=== PATIENT | female | born 1960 | race Caucasian/White ===

== ENCOUNTER 2016-12-04 20:07 | Inpatient (IN) | payer OTHER ==
[~2016-12-04] VITALS: Ht 165.1 cm; Wt 112.5 kg
[~2016-12-04 20:07] MED LIST: ALBU1AER5 INH; ALPH300T PO; CINN500C PO; DIPH25CA PO; FURO1TAB60 PO; LACT10SO47 PO; METF500T PO; PROP20TA3 PO; SPIR100T PO; TRAM50TA; VENL25TA PO
[2016-12-04 20:42] VITALS: BP 126/72; PULSE 85; RESP 20; TEMP 97.1; O2SAT 100
[2016-12-04 21:10] VITALS: RESP 14; O2SAT 97
[2016-12-04] MEDS ORDERED: SODIUM CHLORIDE 0.9% FLUSH 5 ML FLUSH IVF PRN (21:15)
--- NOTE | 2016-12-04 21:16 | PD ---
HPI Chief Complaint: Altered Mental Status Time Seen by Provider: 20:56 Travel History International Travel<30 days: No Contact w/Intl Traveler<30days: No Traveled to known affect area: No History of Present Illness HPI 56yo F with PMH of cirrhosis, ?autoimmune hepatitis, NIDDM presents to the ED with c/o altered mental status today. As per sister who lives with her, she was very agitated and was cursing at home which is not like her. She has been getting paracentesis every week since August for her ascites and was last drained 4 days ago. Pt was nauseous as per sister but denies any fever, vomiting. Pt only states her name and states yes. VS are stable and pt is maintaining her airway. Sister denies any head trauma. PFSH Past Medical History Hx Anticoagulant Therapy: Yes Asthma: Yes Blood Disorders: No Bipolar Disorder: Yes Anxiety: Yes Depression: Yes Heart Rhythm Problems: No Cancer: No Cardiovascular Problems: No High Cholesterol: No Chemotherapy: No Chest Pain: No Congestive Heart Failure: No Cirrhosis: Yes COPD: No Diabetes: Yes Diminished Hearing: No Endocrine: Yes Gastrointestinal Disorders: Yes Genitourinary: No Hepatitis: No Hiatal Hernia: No Hypertension: Yes Immune Disorder: No Musculoskeletal: No Neurologic: No Psychiatric: Yes (BIPOLAR) Reproductive: No Respiratory: No Immunizations Current: Yes (FLU SHOT 09/2015 ) Radiation Therapy: No Sleep Apnea: No Thyroid Disease: No PNEUMOCCOCAL Vaccine (Year): 2009 ?: Not Menopausal: Yes Ovarian Cysts: Yes (DRAINED BILATERALLY) Past Surgical History Abdominal Surgery: Yes (GALL BLADDER 1979) AICD: No Cardiac Surgery: No Cholecystectomy: Yes Ear Surgery: No Endocrine Surgery: No Eye Surgery: No Gynecologic Surgery: Yes (HYSTERECTOMY 1996) Hysterectomy: Yes Joint Replacement: No Oral Surgery: Yes (REMOVAL OF TEETH) Pacemaker: No Thoracic Surgery: No Other Surgery: Yes (L KNEE SCRAPPED; GALLBLADDER REMOVED) Social History Alcohol Use: No Tobacco Use: Yes (3-4 cig daily) Substance Use: No Allergies-Medications (Allergen,Severity, Reaction): Coded Allergies: Augmentin (Verified Allergy, Severe, 11/21/16) Tylox (Verified Allergy, Severe, 11/21/16) Lisinopril (Verified Adverse Reaction, Severe, 11/21/16) ANGIOEDEMA Tylenol (Verified Adverse Reaction, Intermediate, CIRRHOSIS, 11/21/16) Advil (Verified Adverse Reaction, Mild, 11/21/16) Reported Meds & Prescriptions Reported Meds & Active Scripts Active Enulose Liq (Lactulose (Encephalopathy) Liq) 10 Gm/15 Ml Soln 30 Ml PO BID 30 Days Metformin (Metformin HCl) 500 Mg Tab 500 Mg PO BIDPC With meals Spironolactone 100 Mg Tab 100 Mg PO BIDPC Reported Flexeril (Cyclobenzaprine HCl) 5 Mg Tab Unknown Dose PO TID Tramadol (Tramadol HCl) 50 Mg Tab 50 Mg .ROUTE DAILY PRN Alpha Lipoic Acid 300 Mg Tab 300 Mg PO BID Propranolol (Propranolol HCl) 20 Mg Tab 20 Mg PO BID Lasix (Furosemide) 40 Mg Tab 40 Mg PO BID Cinnamon 500 Mg Cap 1,000 Mg PO BID Diphenhydramine (Diphenhydramine HCl) 25 Mg Cap 25 Mg PO TID PRN Effexor (Venlafaxine HCl) 25 Mg Tab 50 Mg PO DAILY Proair Respiclick Inh (Albuterol Sulfate) 90 Mcg/Act Aerp 2 Puff INH Q6H PRN Review of Systems ROS Limitations: Altered Mental Status Physical Exam Narrative GENERAL: 56yo F with altered mental status, not in acute distress. SKIN: Warm and dry. HEAD: Atraumatic. Normocephalic. EYES: Pupils equal and round. No scleral icterus. No injection or drainage. ENT: No nasal bleeding or discharge. Mucous membranes pink and moist. NECK: Trachea midline. No JVD. CARDIOVASCULAR: Regular rate and rhythm. No murmur appreciated. RESPIRATORY: No accessory muscle use. Clear to auscultation. Breath sounds equal bilaterally. GASTROINTESTINAL: Abdomen soft, Distended. +TTP epigastric region. MUSCULOSKELETAL: No obvious deformities. No clubbing. No cyanosis. No edema. NEUROLOGICAL: AAOx1. Only states her name and yes. Not following commands. Moving extremities but not on command. Unable to further assess due to pt's altered mental status. Data Data Last Documented VS Vital Signs Date Time Temp Pulse Resp B/P Pulse Ox O2 Delivery O2 Flow Rate FiO2 12/04/16 23:12 96.1 89 20 96/51 100 Room Air Orders Electrocardiogram (12/04/16 21:09) Alcohol (Ethanol) (12/04/16 21:09) Ammonia (12/04/16 21:09) Complete Blood Count With Diff (12/04/16 21:09) Comprehensive Metabolic Panel (12/04/16 21:09) Prothrombin Time / Inr (Pt) (12/04/16 21:09) Act Partial Throm Time (Ptt) (12/04/16 21:09) Salicylates (Aspirin) (12/04/16 21:09) Troponin I (12/04/16 21:09) Tylenol (Acetaminophen) (12/04/16 21:09) Thyroid Stimulating Hormone (12/04/16 21:09) Lactic Acid Sepsis Protocol (12/04/16 21:09) Urinalysis - C+S If Indicated (12/04/16 21:09) Blood Culture (12/04/16 21:09) Chest, Single Ap (12/04/16 21:09) Blood Glucose (12/04/16 21:09) Ecg Monitoring (12/04/16 21:09) Iv Access Insert/Monitor (12/04/16 21:09) Oximetry (12/04/16 21:09) Sodium Chloride 0.9% Flush (Ns Flush) (12/04/16 21:15) Lipase (12/04/16 21:10) Lactulose Liq (Lactulose Liq) (12/04/16 22:30) Sodium Chlor 0.9% 1000 Ml Inj (Ns 1000 M (12/04/16 22:30) Potassium, Serum (K) (12/05/16 01:27) Calcium Gluconate Inj (Calcium Gluconate (12/04/16 22:30) Insulin Human Regular Inj (Novolin R Inj (12/04/16 22:45) Dextrose 50% In Astrid (Vial) Inj (D50w (Vi (12/04/16 22:30) Albuterol Concentrated Neb (Albuterol Co (12/04/16 22:30) Sodium Polysty Sulfate Liq (Kayexalate L (12/04/16 22:30) Admit Order (Ed Use Only) (12/04/16 23:34) Ct Brain W/O Iv Contrast(Rout) (12/05/16 21:09) Ct Abd/Pel W Iv Contrast(Rout) (12/05/16 ) Labs Laboratory Tests Test 12/04/16 12/04/16 21:15 23:14 White Blood Count 8.6 TH/MM3 Red Blood Count 3.55 MIL/MM3 Hemoglobin 11.8 GM/DL Hematocrit 34.0 % Mean Corpuscular Volume 95.7 FL Mean Corpuscular Hemoglobin 33.2 PG Mean Corpuscular Hemoglobin 34.7 % Concent Red Cell Distribution Width 16.3 % Platelet Count 66 TH/MM3 Mean Platelet Volume 7.9 FL Neutrophils (%) (Auto) 86.3 % Lymphocytes (%) (Auto) 3.9 % Monocytes (%) (Auto) 9.4 % Eosinophils (%) (Auto) 0.2 % Basophils (%) (Auto) 0.2 % Neutrophils # (Auto) 7.4 TH/MM3 Lymphocytes # (Auto) 0.3 TH/MM3 Monocytes # (Auto) 0.8 TH/MM3 Eosinophils # (Auto) 0.0 TH/MM3 Basophils # (Auto) 0.0 TH/MM3 CBC Comment AUTO DIFF Differential Comment AUTO DIFF CONFIRMED Platelet Estimate LOW Platelet Morphology Comment NORMAL Red Cell Morphology Comment NORMAL Prothrombin Time 14.2 SEC Prothromb Time International 1.3 RATIO Ratio Activated Partial 33.2 SEC Thromboplast Time Sodium Level 123 MEQ/L Potassium Level 5.5 MEQ/L Chloride Level 95 MEQ/L Carbon Dioxide Level 17.7 MEQ/L Anion Gap 10 MEQ/L Blood Urea Nitrogen 30 MG/DL Creatinine 0.85 MG/DL Estimat Glomerular Filtration 70 ML/MIN Rate Random Glucose 153 MG/DL Lactic Acid Level 2.3 mmol/L Calcium Level 7.8 MG/DL Total Bilirubin 6.4 MG/DL Aspartate Amino Transf 102 U/L (AST/SGOT) Alanine Aminotransferase 73 U/L (ALT/SGPT) Alkaline Phosphatase 127 U/L Ammonia 72 MCMOL/L Troponin I 0.02 NG/ML Total Protein 6.1 GM/DL Albumin 2.9 GM/DL Lipase 1141 U/L Thyroid Stimulating Hormone 2.760 uIU/ML 3rd Gen Salicylates Level LESS THAN 1.7 MG/DL Acetaminophen Level LESS THAN 2.0 MCG/ML Ethyl Alcohol Level LESS THAN 3 MG/DL Urine Color YELLOW Urine Turbidity HAZY Urine pH 6.0 Urine Specific [place] 1.027 Urine Protein TRACE mg/dL Urine Glucose (UA) NEG mg/dL Urine Ketones NEG mg/dL Urine Occult Blood NEG Urine Nitrite POS Urine Bilirubin NEG Urine Urobilinogen 2.0 MG/DL Urine Leukocyte Esterase TRACE Urine RBC 2 /hpf Urine WBC 13 /hpf Urine Squamous Epithelial 1 /hpf Cells Urine Mucus FEW /lpf Microscopic Urinalysis Comment CATH-CULTURE IND MDM Medical Decision Making Medical Screen Exam Complete: Yes Emergency Medical Condition: Yes Interpretation(s) EKG: NSR 54bpm. LAD. No ST segment elevation or depression. No peaked T wave. Differential Diagnosis Hepatic encephalopathy vs. electrolyte abnormalities vs. ICH vs. infection vs. overdose Narrative Course 56yo F with cirrhosis here with altered mental status, impression is hepatic encephalopathy. Labs reviewed, no leukocytosis. Na is 123. It appears that sodium was 124 on 11/14/16. K: 5.5. Hyperkalemia treatment given. Glucose 153. Ammonia 72, lactulose ordered rectally. Lipase elevated at 1141. TSH normal. Lactic acid 2.3. No leukocytosis. Platelet low at 66,000, appears to be baseline. Increased LFT, slightly increased from baseline. BUN is elevated at 30, pt given NS IVF x3. UA showed positive nitrite. Ciprofloxacin IV given. Discussed with Dr. Perera and accepted to ICU. Pt reevaluated at bedside and mental status improved after lactulose, answering more questions. BP has always been stable with MAP >65. CT scans are still pending because pt is uncooperative but I did not want to give her any sedatives at this time due to her mental status. Patient awaiting bed to ICU. I discussed patient's care extensively with her sisters at bedside and answered all questions. Critical Care Narrative Aggregate critical care time was 50 minutes. Time to perform other separately billable procedures was not included in the critical care time. My time did not include minutes spent treating any other patients simultaneously or on activities that did not directly contribute to the patient's treatment. The services I provided to this patient were to treat and/or prevent clinically significant deterioration that could result in: cardiovascular collapse or . I provided critical care services requiring my management, as noted below: Chart data review, documentation time, medication orders and management, vital sign assessments/reviewing monitor data, ordering and reviewing lab tests, ordering and interpreting/reviewing x-rays and diagnostic studies, care of the patient and discussion of the patient with the admitting physicians. Diagnosis Primary Impression: Hepatic encephalopathy Additional Impression: Hyponatremia Admitting Information Admitting Physician Requests: Admit Vicky Gonzalez DO Dec 04, 2016 21:16
--- NOTE | 2016-12-04 21:34 | RADRPT ---
EXAM DATE/TIME: 12/04/2016 21:09 [facility] COMPARISON: CHEST SINGLE AP, August 23, 2016, 19:12. INDICATIONS : Altered mental status. MEDICAL HISTORY : None. Unobtainable SURGICAL HISTORY : None. Unobtainable ENCOUNTER: Initial ACUITY: 1 day PAIN SCORE: Non-responsive. LOCATION: Bilateral chest FINDINGS: The lungs are grossly clear. Cardiomediastinal evaluation is severely limited by projection. CONCLUSION: No definite infiltrate Toñito Fulton MD on December 04, 2016 at 21:32 Board Certified Radiologist. This report was verified electronically.
[2016-12-04] MEDS ORDERED: CYCL5TAB PO (21:37)
[2016-12-04 21:41] LABS: AUTOMATED NEUTROPHIL # 7.4 TH/MM3 (1.8-7.7); BASOPHIL % 0.2 % (0.0-2.0); EOSINOPHIL % 0.2 % (0.0-4.0); LYMPH % 3.9 % (9.0-44.0); LYMPHOCYTE # 0.3 TH/MM3 (1.0-4.8); MEAN CELL VOLUME 95.7 FL (80.0-100.0); MEAN CORPUSCULAR HEMOGLOBIN 33.2 PG (27.0-34.0); MEAN CORPUSCULAR HGB CONC 34.7 % (32.0-36.0); MONO % 9.4 % (0.0-8.0); NEUT % 86.3 % (16.0-70.0); PLATELET COUNT 66 TH/MM3 (150-450); RED BLOOD COUNT 3.55 MIL/MM3 (4.00-5.30); RED CELL DISTRIBUTION WIDTH 16.3 % (11.6-17.2); WHITE BLOOD COUNT 8.6 TH/MM3 (4.0-11.0)
[2016-12-04 21:54] LABS: APTT (PATIENT) 33.2 SEC (24.3-30.1); INTERNATIONAL NORMALIZED RATIO 1.3 RATIO; PROTHROMBIN TIME - PATIENT 14.2 SEC (9.8-11.6)
[2016-12-04 22:00] LABS: ANION GAP 10 MEQ/L (5-15)
[2016-12-04 22:10] LABS: HEMO FLAGS AUTO DIFF
[2016-12-04 22:11] LABS: ACETAMINOPHEN LESS THAN 2.0 MCG/ML (10.0-30.0); ALKALINE PHOSPHATASE 127 U/L (45-117); ALT (GPT) 73 U/L (10-53); AST (GOT) 102 U/L (15-37); BICARBONATE 17.7 MEQ/L (21.0-32.0); BLOOD UREA NITROGEN 30 MG/DL (7-18); CHLORIDE 95 MEQ/L (98-107); GLOMERULAR FILTRATION RATE 70 ML/MIN (>89); POTASSIUM 5.5 MEQ/L (3.5-5.1); TOTAL BILIRUBIN ADULT 6.4 MG/DL (0.2-1.0)
[2016-12-04 22:12] LABS: SODIUM (NA) 123 MEQ/L (136-145)
[2016-12-04 22:24] LABS: PLATELET ESTIMATE SMEAR LOW (NORMAL); PLATELET MORPHOLOGY NORMAL (NORMAL); SCAN/DIFF AUTO DIFF CONFIRMED
[2016-12-04] MEDS ORDERED: SODIUM CHLOR 0.9% 1000 ML INJ 1,000 ML IV ONE (22:30)
[2016-12-04] MEDS ORDERED: LACTULOSE SYRUP 20 GM/30 ML CUP RECTAL ONE (22:30)
[2016-12-04] MEDS ORDERED: DEXTROSE 50% IN WATER 50 ML VIAL(D50) IV PUSH ONE (22:30)
[2016-12-04] MEDS ORDERED: CALCIUM GLUCONATE 10% 1 GM/10 ML VIAL SLOW IVP ONE (22:30)
[2016-12-04] MEDS ORDERED: SODIUM POLYSTYRENE SULFONATE SUSP 15 GM/60 ML CUP PO ONE (22:30)
[2016-12-04] MEDS ORDERED: RESP: ALBUTEROL CONC 2.5 MG/0.5 ML NEB INH ONE (22:30)
[2016-12-04] MEDS ORDERED: INSULIN HUMAN REGULAR 1,000 UNITS/10 ML VIAL IV PUSH ONE (22:45)
[2016-12-04 23:12] VITALS: BP 96/51; PULSE 89; RESP 20; TEMP 96.1; O2SAT 100
[2016-12-04 23:33] LABS: LACTIC ACID GHOST NOT REPORTABLE
[2016-12-04 23:44] LABS: BLOOD, URINE NEG (NEG); GLUCOSE,URINE NEG (NEG); KETONE, URINE NEG (NEG); MUCUS URINE FEW /lpf (OCC); SQUAMOUS EPITHELIAL CELL URINE 1 /hpf (0-5); URINE COLOR YELLOW (YELLW/STRAW)
[2016-12-04 23:45] LABS: COMMENT (UR) CATH-CULTURE IND; CULTURE IF INDICATED CATH CULTURE IND; NITRITE,URINE POS (NEG)
[2016-12-05] VITALS (11 sets, daily range): BP systolic 103–120; BP diastolic 52–69; PULSE 80–86; RESP 14–21; TEMP 97.6–98.5; O2SAT 94–100
[2016-12-05] MEDS ORDERED: SODIUM CHLOR 0.9% 1000 ML INJ 1,000 ML IV ONE ×2 (01:15)
[2016-12-05] MEDS ORDERED: CIPROFLOXACIN 400 MG PREMIX 200 ML IV ONE (01:15)
--- NOTE | 2016-12-05 05:03 | HHI.HP ---
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 She has no h/o EtOH or IVDU. She has been followed by Dr. Gomez as outpatient and previously seen by Dr. Escalante. There has been discussion of referral to transplant center but patient has not always had good followup due to financial constraints. She has recently been approved for SSI. She presents to [facility] ED due to altered mental status. Her sisters are at bedside and state that since about august or september of 2016 that she sleeps 70-80% of the day. However, she is typically coherent when she is awake. She slept all day on 12/04/16 and around 4 pm she got up and was "off balance" and nearly fell in the shower. She was also disoriented and could state that she was [place] but could not answer any other questions. She was also agitated and cursing, which is not in her nature. She has no reported head trauma. She has been compliant with lactulose 30 bid. Ammonia level is 72. She has tense ascites and has been requiring paracentesis since september of 2015, now requiring weekly paracentesis for the last several months. Family states typically remove ~12 L. Last paracentesis was on 11/30 and 14 L were removed. She is on spironolactone 100 bid and lasix 40 bid. She reportedly has had no fever. She has had chills for "Several months". She reports no abdominal pain outside of the typical discomfort when she has ascites. She vomited on 11/25 and 11/26 NBNB. Sodium 122. potassium 5.5. She received 2 L NS bolus in the ED and treatment for hyperkalemia with kayexalate/calcium/dextrose/insulin. She received lactulose [address] brain and abdomen were ordered but she was uncooperative with the exam. Family at bedside say she is now much improved. She is now oriented x3 and conversant. Past Family Social History Allergies: Coded Allergies: Augmentin (Verified Allergy, Severe, 11/21/16) Tylox (Verified Allergy, Severe, 11/21/16) Lisinopril (Verified Adverse Reaction, Severe, 11/21/16) ANGIOEDEMA Tylenol (Verified Adverse Reaction, Intermediate, CIRRHOSIS, 11/21/16) Advil (Verified Adverse Reaction, Mild, 11/21/16) Past Medical History JOSH positive Autoimmune hepatopathy. Cirrhosis Portal hypertension Spinal megaly Diabetes mellitus Past Surgical History Cholecystectomy Hysterectomy Tonsillectomy Esophageal dilation Multiple paracenteses Reportedly she has never had a liver biopsy. Reported Medications Lactulose 30 mL by mouth twice a day Effexor 50 mils Albuterol 2 puffs inhaled every 6 hours Propranolol 20 mg by mouth twice a day Metformin 500 mg by mouth twice a day Flexeril 5 mill grams by mouth 3 times a day Benadryl 25 mill grams by mouth 3 times a day Lasix 40 mill grams by mouth twice a day Spironolactone a day Ultram 50 mg by mouth daily when necessary pain Alpha lipoic acid threaded milligrams by mouth twice a day Cinnamon 1000 g by mouth twice a day Family History No known family history liver disease Social History She met she smokes 1-2 cigarettes per day. She never drank alcohol. No illicit drug use. 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 She is not She has no children. Her sisters help care for her. She is on disability. Physical Exam Vital Signs Vital Signs Date Time Temp Pulse Resp B/P Pulse Ox O2 Delivery O2 Flow Rate FiO2 12/04/16 23:12 96.1 89 20 96/51 100 Room Air 12/04/16 21:10 14 97 Room Air 12/04/16 21:10 80 14 98 Room Air 12/04/16 20:42 97.1 85 20 126/72 100 Physical Exam Blood pressure 96.1 pulse 89 respiration 20 blood pressure 96/50 one 100% on room air GENERAL: Chronically ill-appearing jaundiced patient with ascites who appears uncomfortable in ED gurney, restless and moving to her side complaining of back pain. SKIN: Warm and dry. Multiple telangiectasia over chest. Multiple ecchymoses overlying bilateral upper extremities. No palmar erythema HEAD: Atraumatic. Normocephalic. EYES: Pupils equal and round. +icterus ENT: No nasal bleeding or discharge. Mucous membranes dry. . NECK: Trachea midline. CARDIOVASCULAR: Regular rate and rhythm. No murmurs rubs or gallops. RESPIRATORY: Mildly tachypneic with No accessory muscle use. Clear to auscultation. Breath sounds diminished bibasilar. On RA. GASTROINTESTINAL: Abdomen distended with tense ascites. No significant tenderness or rebound. +caput MUSCULOSKELETAL: Extremities without clubbing, cyanosis. 2+ pitting bipedal edema. NEUROLOGICAL: Awake, alert, restless. Repetitive questions. Oriented to self, hospital, year. Following commands. Moving all extremities without focal deficit Laboratory Laboratory Tests Test 12/04/16 12/04/16 12/05/16 21:15 23:14 00:00 White Blood Count 8.6 Red Blood Count 3.55 Hemoglobin 11.8 Hematocrit 34.0 Mean Corpuscular Volume 95.7 Mean Corpuscular Hemoglobin 33.2 Mean Corpuscular Hemoglobin 34.7 Concent Red Cell Distribution Width 16.3 Platelet Count 66 Mean Platelet Volume 7.9 Neutrophils (%) (Auto) 86.3 Lymphocytes (%) (Auto) 3.9 Monocytes (%) (Auto) 9.4 Eosinophils (%) (Auto) 0.2 Basophils (%) (Auto) 0.2 Neutrophils # (Auto) 7.4 Lymphocytes # (Auto) 0.3 Monocytes # (Auto) 0.8 Eosinophils # (Auto) 0.0 Basophils # (Auto) 0.0 CBC Comment AUTO DIFF Differential Comment AUTO DIFF CONFIRMED Platelet Estimate LOW Platelet Morphology Comment NORMAL Red Cell Morphology Comment NORMAL Prothrombin Time 14.2 Prothromb Time International 1.3 Ratio Activated Partial 33.2 Thromboplast Time Sodium Level 123 Potassium Level 5.5 Chloride Level 95 Carbon Dioxide Level 17.7 Anion Gap 10 Blood Urea Nitrogen 30 Creatinine 0.85 Estimat Glomerular Filtration 70 Rate Random Glucose 153 Lactic Acid Level 2.3 2.6 Calcium Level 7.8 Total Bilirubin 6.4 Aspartate Amino Transf 102 (AST/SGOT) Alanine Aminotransferase 73 (ALT/SGPT) Alkaline Phosphatase 127 Ammonia 72 Troponin I 0.02 Total Protein 6.1 Albumin 2.9 Lipase 1141 Thyroid Stimulating Hormone 2.760 3rd Gen Salicylates Level LESS THAN 1.7 Acetaminophen Level LESS THAN 2.0 Ethyl Alcohol Level LESS THAN 3 Urine Color YELLOW Urine Turbidity HAZY Urine pH 6.0 Urine Specific [place] 1.027 Urine Protein TRACE Urine Glucose (UA) NEG Urine Ketones NEG Urine Occult Blood NEG Urine Nitrite POS Urine Bilirubin NEG Urine Urobilinogen 2.0 Urine Leukocyte Esterase TRACE Urine RBC 2 Urine WBC 13 Urine Squamous Epithelial 1 Cells Urine Mucus FEW Microscopic Urinalysis Comment CATH-CULTURE IND Date/Time Procedure Status Source Growth 12/04/16 23:14 Urine Culture Received Urine Catheterized Urine Pending 12/04/16 21:15 Aerobic Blood Culture Received Blood Peripheral Pending 12/04/16 21:15 Anaerobic Blood Culture Received Blood Peripheral Pending Result Diagram: 12/04/16211412/04/162114 Assessment and Plan Assessment and Plan NEURO: Grade 3 hepatic encephalopathy Depression Diabetic Peripheral neuropathy Ammonia level 72 Start rifaximin 550 mg by mouth twice a day. Continue lactulose 30 g by mouth twice a day. Hold sedatives for now including Benadryl and Flexeril 5 mg by mouth [address] brain pending. RESP: On RA. CV: Lactic acidemia Monitor hemodynamics. Mild lactic acidemia with Poor lactate clearance due to cirrhosis. She is normotensive and appears perfused. GI: Autoimmune hepatopathy Cirrhosis Ambar Summers C, MELD 26 Splenomegaly Portal hypertension [place] to be autoimmune etiology. JOSH positive. ASMA negative. ceruloplasmin negative, ferritin low, [id number] nl. viral hepatitis panel neg 09/15. Consult gastroenterology Paracentesis today diagnostic/therapeutic with albumin infusion. Consider steroids/azathioprine if infection ruled out but defer to gastroenterology recs. Hold spironolactone due to hyperkalemia. Continue propranolol/lasix. Elevated lipase of unclear significance.CT abdomen and pelvis pending. NPO for now. FEN/RENAL: Hyponatremia Hyperkalemia Downs in place. Monitor intake and output. Monitor electrolytes. Hold spironolactone for now due to hyperkalemia Continue Lasix 40 mg by mouth twice a day. ID: UTI Received Cipro and emergency department. Will continue fluoroquinolone for SBP treatment and prophylaxis. Follow-up ascitic fluid cell counts Apply nystatin cream to the intertriginous regions in groin. HEME: Chronic thrombocytopenia secondary to cirrhosis Mild Coagulopathy secondary to cirrhosis Monitor CBC ENDO: Diabetes mellitus Hold metformin. Low-dose insulin sliding scale at bedside glucose every 6 hours PROPH: Hold pharmacologic DVT prophylaxis pending paracentesis. SCDs for DVT prophylaxis. Protonix 40 month grams IV daily for stress ulcer prophylaxis. ACCESS: Peripheral IV providing adequate access at this time. Family updated at bedside. Questions answered Full code Level III Ninoska Perera MD Dec 05, 2016 05:03
[2016-12-05] MEDS ORDERED: MISCELLANEOUS NURSING INFORMATION XX SCH (07:00)
[2016-12-05] MEDS ORDERED: SODIUM CHLORIDE 0.9% FLUSH 5 ML FLUSH IV FLUSH PRN (07:00)
[2016-12-05] MEDS ORDERED: RESP: ALBUTEROL 2.5 MG/3 ML NEB (PRN) INH (07:00)
[2016-12-05] MEDS ORDERED: CHLORHEXIDINE GLUCONATE 2 % 1 PACK (2 CLOTHS) TOP PRN (07:00)
[2016-12-05] MEDS ORDERED: DEXTROSE 50% IN WATER 50 ML VIAL(D50) IV PUSH PRN (07:15)
[2016-12-05] MEDS ORDERED: GLUCAGON 1 MG/ML VIAL OTHER PRN (07:15)
[2016-12-05] MEDS ORDERED: ALBUMIN HUMAN 25% 25 GM/100 ML BAGP IV ONE (07:30)
--- NOTE | 2016-12-05 07:56 | PD.CONS ---
HPI History of Present Illness This is a 56 year old female patient with liver cirrhosis who was brought to the ER for altered mental status. She was admitted for altered mental status, hepatic encephalopathy, lactic acidemia, portal hypertension, coagulopathy, thrombocytopenia, UTI, electrolyte abnormalities, and management of her chronic medical problems. The patient is very lethargic and a poor historian and therefore much of the history has been obtained from her sister. She reports that she has been more agitated than usual for a few weeks and suddenly became more confused yesterday afternoon with frequent stumbling and agitated behavior. She has also been having abdominal swelling since August and is now requiring weekly paracentesis. She was diagnosed with liver cirrhosis back in 2013. This was attributed to fatty liver disease. She has never actually had a liver biopsy. She has never been an alcohol drinker. The sister reports that she was recently told by a nurse practitioner that she may have autoimmune hepatitis based on a positive JOSH as outpatient. She was seen by Dr. Escalante in 2014 and underwent liver workup at that time and this revealed JOSH positive, AMA < 20.0, ASMA negative, Celiac panel negative, Iron saturation 26.1%, AFP 5.4 , Hepatitis panel negative. EGD (09/21/15)----> duodenitis, hiatal hernia, gastritis in the antrum, esophageal varices- s/p banding x 2, portal gastropathy. Antral mucosa with focal mild chronic inflammation of the lamina propria. Acute inflammation is not identified. A bharathi stain is negative for helicobacter, duodenal mucosa with features suggestive of peptic duodenitis. Repeat was recommended for 3 months. She takes lactulose 30mL po BID, spironolactone 100mg po BID, lasix 40mg po bid, and propranolol 20mg po bid. Her sister reports that she is usually very compliant and follows her diet and takes medications as prescribed. Her sister reports that she does have chills, but has not had any fevers. She has had intermittent nausea and vomiting since . She has not had any sick contacts. She also has frequent acid reflux. She has been using emetrol at home and this has helped some. She has not had any significant abdominal pain. She does have some discomfort from the abdominal swelling, but no actual pain. She recently started having diarrhea a few days ago and is having intermittent episodes of incontinence. (Merary Hernandez) PFSH Past Medical History Ascites Liver cirrhosis Asthma Bipolar disorder Hiatal hernia Type II DM Gastropathy Steatohepatitis Esophageal varices Positive JOSH Past Surgical History Abdominal paracentesis Cholecystectomy EGD Colonoscopy Hysterectomy Ovarian cystectomy (Merary Hernandez) Coded Allergies: Augmentin (Verified Allergy, Severe, 11/21/16) Tylox (Verified Allergy, Severe, 11/21/16) Lisinopril (Verified Adverse Reaction, Severe, 11/21/16) ANGIOEDEMA Tylenol (Verified Adverse Reaction, Intermediate, CIRRHOSIS, 11/21/16) Advil (Verified Adverse Reaction, Mild, 11/21/16) Medications Allergies Coded Allergies Type Severity Reaction Last Updated Verified Augmentin Allergy Severe 11/21/16 Yes Tylox Allergy Severe 11/21/16 Yes Lisinopril Adverse Reaction Severe 11/21/16 Yes Tylenol Adverse Reaction Intermediate CIRRHOSIS 11/21/16 Yes Advil Adverse Reaction Mild 11/21/16 Yes Active Scripts Medications Dose Route/Sig Days Date Category Dose Instructions Flexeril (Cyclobenzaprine HCl) 5 Mg Tab Unknown Dose PO TID 12/04/16 Reported Enulose Liq (Lactulose (Encephalopathy) Liq) 10 Gm/15 Ml Soln 30 Ml PO BID 30 11/02/16 Rx Metformin (Metformin HCl) 500 Mg Tab 500 Mg PO BIDPC 10/16/16 Rx With meals Spironolactone 100 Mg Tab 100 Mg PO BIDPC 10/08/16 Rx Tramadol (Tramadol HCl) 50 Mg Tab 50 Mg .ROUTE DAILY PRN 10/08/16 Reported Alpha Lipoic Acid 300 Mg Tab 300 Mg PO BID 10/08/16 Reported Propranolol (Propranolol HCl) 20 Mg Tab 20 Mg PO BID 10/08/16 Reported Lasix (Furosemide) 40 Mg Tab 40 Mg PO BID 10/08/16 Reported Cinnamon 500 Mg Cap 1,000 Mg PO BID 10/08/16 Reported Diphenhydramine (Diphenhydramine HCl) 25 Mg Cap 25 Mg PO TID PRN 10/08/16 Reported Effexor (Venlafaxine HCl) 25 Mg Tab 50 Mg PO DAILY 10/08/16 Reported Proair Respiclick Inh (Albuterol Sulfate) 90 Mcg/Act Aerp 2 Puff INH Q6H PRN 10/08/16 Reported Family History Family hx of liver cirrhosis Social History Tobacco No ETOH use. (Merary Hernandez Farideh LUDWIG) Review of Systems Constitutional: COMPLAINS OF: Fatigue, Chills, DENIES: Fever Respiratory: DENIES: Cough, Shortness of breath Gastrointestinal: COMPLAINS OF: Diarrhea, Nausea, Vomiting, Swelling of Abdomen , Heartburn, DENIES: Abdominal pain, Black stools, Bloody stools, Constipation , Hematemesis Musculoskeletal: COMPLAINS OF: Joint pain, Back pain Integumentary: COMPLAINS OF: Jaundice, DENIES: Rash Hematologic/lymphatic: COMPLAINS OF: Bruising Neurologic: DENIES: Headache Psychiatric: COMPLAINS OF: Confusion, Agitation (HernandezMerary) GI Exam Vitals I&O Vital Signs Date Time Temp Pulse Resp B/P Pulse Ox O2 Delivery O2 Flow Rate FiO2 12/04/16 23:12 96.1 89 20 96/51 100 Room Air 12/04/16 21:10 14 97 Room Air 12/04/16 21:10 80 14 98 Room Air 12/04/16 20:42 97.1 85 20 126/72 100 Imaging Last Impressions Chest X-Ray 12/04/162108 Signed Impressions: Service Date/Time: Sunday, December 04, 2016 21:09 - CONCLUSION: No definite infiltrate Toñito Fulton MD Laboratory Test 12/04/16 12/04/16 12/05/16 12/05/16 21:15 23:14 00:00 04:30 White Blood Count 8.6 TH/MM3 Red Blood Count 3.55 MIL/MM3 Hemoglobin 11.8 GM/DL Hematocrit 34.0 % Mean Corpuscular Volume 95.7 FL Mean Corpuscular Hemoglobin 33.2 PG Mean Corpuscular Hemoglobin 34.7 % Concent Red Cell Distribution Width 16.3 % Platelet Count 66 TH/MM3 Mean Platelet Volume 7.9 FL Neutrophils (%) (Auto) 86.3 % Lymphocytes (%) (Auto) 3.9 % Monocytes (%) (Auto) 9.4 % Eosinophils (%) (Auto) 0.2 % Basophils (%) (Auto) 0.2 % Neutrophils # (Auto) 7.4 TH/MM3 Lymphocytes # (Auto) 0.3 TH/MM3 Monocytes # (Auto) 0.8 TH/MM3 Eosinophils # (Auto) 0.0 TH/MM3 Basophils # (Auto) 0.0 TH/MM3 CBC Comment AUTO DIFF Differential Comment AUTO DIFF CONFIRMED Platelet Estimate LOW Platelet Morphology Comment NORMAL Red Cell Morphology Comment NORMAL Prothrombin Time 14.2 SEC Prothromb Time International 1.3 RATIO Ratio Activated Partial 33.2 SEC Thromboplast Time Sodium Level 123 MEQ/L Potassium Level 5.5 MEQ/L 5.2 MEQ/L Chloride Level 95 MEQ/L Carbon Dioxide Level 17.7 MEQ/L Anion Gap 10 MEQ/L Blood Urea Nitrogen 30 MG/DL Creatinine 0.85 MG/DL Estimat Glomerular Filtration 70 ML/MIN Rate Random Glucose 153 MG/DL Lactic Acid Level 2.3 mmol/L 2.6 mmol/L Calcium Level 7.8 MG/DL Total Bilirubin 6.4 MG/DL Aspartate Amino Transf 102 U/L (AST/SGOT) Alanine Aminotransferase 73 U/L (ALT/SGPT) Alkaline Phosphatase 127 U/L Ammonia 72 MCMOL/L Troponin I 0.02 NG/ML Total Protein 6.1 GM/DL Albumin 2.9 GM/DL Lipase 1141 U/L Thyroid Stimulating Hormone 2.760 uIU/ML 3rd Gen Salicylates Level LESS THAN 1.7 MG/DL Acetaminophen Level LESS THAN 2.0 MCG/ML Ethyl Alcohol Level LESS THAN 3 MG/DL Urine Color YELLOW Urine Turbidity HAZY Urine pH 6.0 Urine Specific [place] 1.027 Urine Protein TRACE mg/dL Urine Glucose (UA) NEG mg/dL Urine Ketones NEG mg/dL Urine Occult Blood NEG Urine Nitrite POS Urine Bilirubin NEG Urine Urobilinogen 2.0 MG/DL Urine Leukocyte Esterase TRACE Urine RBC 2 /hpf Urine WBC 13 /hpf Urine Squamous Epithelial 1 /hpf Cells Urine Mucus FEW /lpf Microscopic Urinalysis Comment CATH-CULTURE IND Date/Time Procedure Status Source Growth 12/04/16 23:14 Urine Culture Received Urine Catheterized Urine Pending 12/04/16 21:15 Aerobic Blood Culture Received Blood Peripheral Pending 12/04/16 21:15 Anaerobic Blood Culture Received Blood Peripheral Pending Physical Examination HEENT: Normocephalic; atraumatic; no jaundice. CHEST: CTA, diminished CARDIAC: RRR ABDOMEN: Soft, moderate to severe distention with ascites. mild diffuse tenderness; hepatosplenomegaly; bowel sounds are present in all four quadrants. EXTREMITIES: BLE edema more so in LLE. SKIN: Multiple ecchymotic area [employer]: Lethargic, oriented to self and place (Merary Hernandez [employer] WORKER) Assessment and Plan Plan ASSESSMENT: - Elevated LFTs with liver cirrhosis. MELD 16. Unclear etiology for liver cirrhosis. Dx in 2013 and was told at this time this was related to fatty liver disease. She was recently told by her PCP/[employer] that she may have autoimmune hepatitis based on a positive JOSH. She was seen by Dr. Escalante in 2014 and underwent liver workup at that time and this revealed JOSH positive, AMA < 20.0, ASMA negative, Celiac panel negative, Iron saturation 26.1%, AFP 5.4, Hepatitis panel negative. She continues to have JOSH positive with titer 1:160. She seems to have decompensation with recurrent ascites and worsening hepatic encephalopathy since August of this year. This could be autoimmune hepatitis, although her was ASMA negative. Will check ALKM-1, ALC-1, IgG to exclude type II. This could also be decompensation from her known liver disease- possibly related to fatty liver dz and/or medication induced. Spoke to Dr. Alonso Cook re: possible liver disease and he does not feel that he can safely obtain biopsy with her large volume ascites and recommends considering this once her ascites is better controlled. - Recurrent ascites. US guided paracentesis with fluid to be sent for analysis ordered. Cipro for UTI. - AMS, Hepatic encephalopathy. Xifaxan, Lactulose. Improved. Lethargic, but oriented. - GERD. PPI. EGD during this hospitalization. - N/V since [place]. PPI. Consider EGD during this hospitalization. - Coagulopathy, Thrombocytopenia. PT 14.2, INR 1.3. Plt 66 - UTI, Cipro. - Hyponatremia, Hyperkalemia. per [facility] - Portal hypertension, hx esophageal varices. EGD (09/21/15)----> duodenitis, hiatal hernia, gastritis in the antrum, esophageal varices - s/p banding x 2, portal gastropathy. Antral mucosa with focal mild chronic inflammation of the lamina propria. Acute inflammation is not identified. A bharathi stain is negative for helicobacter, duodenal mucosa with features suggestive of peptic duodenitis. Repeat was recommended for 3 months. Propranolol. EGD during this hospitalization. PLAN: - 2 gram sodium diet - US guided paracentesis with fluid sent for analysis - Defer diuretics to [facility] given electrolyte abnormalities - Consider albumin - Cont. PPI - Cont. Propranolol - Cont. Lactulose - Cont. Xifaxan - ALKM-1 - ALC-1 - IgG to exclude type II. - Spoke to Dr. Alonso Cook re: possible liver disease and he does not feel that he can safely obtain biopsy with her large volume ascites and recommends considering this once her ascites is better controlled. - EGD during this hospitalization - Supportive care - Further recommendations to follow based on results of above - Pt seen and examined by Dr. Newell and myself and this note is written on his behalf (Merary Hernandez) Physician Comments Patient was seen and examined, agree with above note and plan, labs for AM, consider trand juggler liver bx if ascites is not better soon, also consider evaluation at liver txp center. (Alannah Newell MD) Merary Hernandez Dec 05, 2016 07:56 Alannah Newell MD Dec 05, 2016 20:21
[2016-12-05] MEDS: FUROSEMIDE 40 MG TAB PO SCH ×2 (09:00→20:24)
[2016-12-05] MEDS: LACTULOSE SYRUP 20 GM/30 ML CUP PO SCH ×2 (09:00→20:24)
[2016-12-05] MEDS: PROPRANOLOL HCL 20 MG TAB PO SCH ×2 (09:00→20:12)
[2016-12-05] MEDS ORDERED: IOHEXOL 350 MG/ML 10 ML VIAL (for RAD DIAG) IV ONE (09:09)
--- NOTE | 2016-12-05 09:10 | RADRPT ---
EXAM DATE/TIME: 12/05/2016 08:59 [facility] COMPARISON: CT BRAIN W/O CONTRAST, July 25, 2014, 23:08. INDICATIONS : Altered mental status RADIATION DOSE: 56.35 CTDIvol (mGy) MEDICAL HISTORY : Diabetes mellitus type 2. Asthma SURGICAL HISTORY : Cholecystectomy. Hysterectomy. ENCOUNTER: Initial ACUITY: 1 day PAIN SCALE: 0/10 LOCATION: cranial TECHNIQUE: Multiple contiguous axial images were obtained of the head. Using automated exposure control and adj ustment of the mA and/or kV according to patient size, radiation dose was kept as low as reasonably a chievable to obtain optimal diagnostic quality images. FINDINGS: CEREBRUM: The ventricles are normal for age. No evidence of midline shift, mass lesion, hemorrhage or acute in farction. No extra-axial fluid collections are seen. POSTERIOR FOSSA: The cerebellum and brainstem are intact. The 4th ventricle is midline. The cerebellopontine angle i s unremarkable. EXTRACRANIAL: The visualized portion of the orbits is intact. SKULL: The calvaria is intact. No evidence of skull fracture. CONCLUSION: Normal examination for a patient of this age. No significant change has occurred. Bryan Mahmood MD on December 05, 2016 at 9:06 Board Certified Radiologist. This report was verified electronically.
--- NOTE | 2016-12-05 09:26 | RADRPT ---
EXAM DATE/TIME: 12/05/2016 09:03 [facility] COMPARISON: No previous studies available for comparison. INDICATIONS : Altered mental status, history of vomiting several days ago IV CONTRAST: 97 cc Omnipaque 350 (iohexol) IV ORAL CONTRAST: No oral contrast ingested. RADIATION DOSE: 28.09 CTDIvol (mGy) MEDICAL HISTORY : Diabetes mellitus type 2. Asthma SURGICAL HISTORY : Hysterectomy. Cholecystectomy. ENCOUNTER: Initial ACUITY: 2 days PAIN SCALE: 0/10 LOCATION: abdomen TECHNIQUE: Volumetric scanning of the abdomen and pelvis was performed. Using automated exposure control and ad justment of the mA and/or kV according to patient size, radiation dose was kept as low as reasonably achievable to obtain optimal diagnostic quality images. FINDINGS: Minimal basilar lung scarring. There is liver cirrhosis, splenomegaly and moderate ascites, similar t o September 2015 and August 2016. Numerous varices present in the upper abdomen. Previous hysterecto my and cholecystectomy. There is a 7.7 cm right adnexal mass which is stable in appearance over this last year. Downs cathete r present in bladder. No bowel obstruction. No free air. No acute bony abnormalities. Stomach is not distended. CONCLUSION: 1. Liver cirrhosis with moderate ascites, splenomegaly and varices similar in appearance to prior CT examinations. 2. Stable right adnexal mass measuring about 7.7 cm compared with September 2015. 3. Downs catheter in bladder. No bowel obstruction. No gastric distention. Bryan Mahmood MD on December 05, 2016 at 9:15 Board Certified Radiologist. This report was verified electronically.
[2016-12-05] MEDS: traMADol HCL 50 MG TAB PO PRN ×2 (09:52→22:00)
[2016-12-05] MEDS: RIFAXIMIN 550 MG TAB PO SCH ×2 (10:46→20:24)
[2016-12-05] MEDS: NYSTATIN 100,000 UNIT/GM CREAM 15 GM TOPICAL SCH ×2 (10:46→20:24)
[2016-12-05] MEDS: PANTOPRAZOLE SODIUM 40 MG VIAL IV SCH (10:46)
[2016-12-05] MEDS: SODIUM CHLORIDE 0.9% FLUSH 5 ML FLUSH IV FLUSH SCH ×2 (10:47→21:00)
--- NOTE | 2016-12-05 11:31 | EKG ---
Date Performed: 12/04/2016 Time Performed: 21:26:32 PTAGE: 56 years EKG: Sinus rhythm POSSIBLE ANTEROLATERAL MYOCARDIAL INFARCTION ABNORMAL ECG PREVIOUS TRACING : 08/09/2016 23.56 DOCTOR: Philip Lay Interpretating Date/Time 12/05/2016 11:30:21
[2016-12-05 13:18] LABS: PERITONEAL POLYS(SEGS) 67 %; PERITONEAL WBC 220 /MM3 (0-10)
[2016-12-05 13:19] LABS: PERITONEAL HISTIOCYTES 6 %; PERITONEAL LYMPHS 24 %; PERITONEAL MESOTHELIAL 1 %; PERITONEAL MONOS 2 %
[2016-12-05] MEDS ORDERED: LIDOCAINE HCL 1% 30 ML VIAL ONE (13:52)
--- NOTE | 2016-12-05 15:10 | RADRPT ---
EXAM DATE/TIME: 12/05/2016 11:26 [facility] COMPARISON: US GUIDED ABD PARACENTESIS, November 30, 2016, 8:35. INDICATIONS : Ascites. MEDICAL HISTORY : Hypertension. Cirrhosis. Jaundice. Neuropathy. Dyspnea. Gallbladder disease. Diabetes. Asthma. Anti coagulant therapy. Bipolar diosrder. Depression. Anxiety. SURGICAL HISTORY : Hysterectomy. Hemorrhoidectomy. Tonsillectomy. Inguinal hernia repair. Left knee arthoscope. Ovarain cyst aspiration.Cholecystectomy. Esophogeal varices banding. Paracentesis. ENCOUNTER: Sequela ACUITY: 4-6 days PAIN SCORE: 3/10 LOCATION: Right lower quadrant FLUID: Total volume of 12,300 cc of cloudy, yellowish orange fluid was removed. Fluid was sent to lab for ordered studies. Post procedure scanning reveals no hematoma or other complication. TECHNIQUE: 1. Ultrasound guidance for abdominal paracentesis. 2. Paracentesis. The risks, benefits, and alternatives to ultrasound guided paracentesis were explained to the patient in detail including the risk of bleeding and infection. Written and verbal informed consent was obt ained. With the patient on the ultrasound table, ultrasound imaging was used to select the most appropriate approach for paracentesis. Overlying skin was prepped and draped in the usual sterile fashion and wi th a local anesthetic, a dermatotomy was made with an 11 blade scalpel. A 6 Lao [id number] ca theter was introduced into the peritoneal cavity and fluid was collected. The patient tolerated the procedure well and left the ultrasound suite in stable condition. CONCLUSION: Uncomplicated ultrasound guided paracentesis. Patient received albumin. Nitin Cook MD FACR on December 05, 2016 at 15:08 Board Certified Radiologist. This report was verified electronically.
[2016-12-05] MEDS: INSULIN ASPART SUPPLEMENTAL SCALE SQ SCH ×2 (16:00→20:24)
[2016-12-05 17:10] LABS: HEMATOCRIT 27.3 % (35.0-46.0); MEAN CELL VOLUME 96.9 FL (80.0-100.0); MEAN CORPUSCULAR HGB CONC 35.1 % (32.0-36.0); PLATELET COUNT 52 TH/MM3 (150-450); RED BLOOD COUNT 2.82 MIL/MM3 (4.00-5.30); RED CELL DISTRIBUTION WIDTH 16.6 % (11.6-17.2); WHITE BLOOD COUNT 4.9 TH/MM3 (4.0-11.0)
[2016-12-05 17:13] LABS: REVIEW FLAG FINAL
[2016-12-05 17:36] LABS: ALKALINE PHOSPHATASE 88 U/L (45-117); ALT (GPT) 60 U/L (10-53); ANION GAP 13 MEQ/L (5-15); AST (GOT) 82 U/L (15-37); BICARBONATE 16.8 MEQ/L (21.0-32.0); BLOOD UREA NITROGEN 25 MG/DL (7-18); CHLORIDE 98 MEQ/L (98-107); GLOMERULAR FILTRATION RATE 68 ML/MIN (>89); LDH SERUM 162 U/L (84-246); POTASSIUM 4.5 MEQ/L (3.5-5.1); SODIUM (NA) 128 MEQ/L (136-145); TOTAL BILIRUBIN ADULT 6.4 MG/DL (0.2-1.0)
[2016-12-06] VITALS (11 sets, daily range): BP systolic 98–120; BP diastolic 51–69; PULSE 72–88; RESP 15–19; TEMP 97.4–99; O2SAT 95–100
[2016-12-06] MEDS: CIPROFLOXACIN 400 MG PREMIX 200 ML IV SCH (02:08)
[2016-12-06 04:06] LABS: BASOPHIL % 0.5 % (0.0-2.0); EOSINOPHIL # 0.1 TH/MM3 (0-0.4); EOSINOPHIL % 1.9 % (0.0-4.0); HEMATOCRIT 27.4 % (35.0-46.0); LYMPHOCYTE # 0.3 TH/MM3 (1.0-4.8); MEAN CELL VOLUME 95.9 FL (80.0-100.0); MEAN CORPUSCULAR HEMOGLOBIN 33.6 PG (27.0-34.0); MONO % 14.4 % (0.0-8.0); NEUT % 77.2 % (16.0-70.0); PLATELET COUNT 44 TH/MM3 (150-450); RED BLOOD COUNT 2.86 MIL/MM3 (4.00-5.30); RED CELL DISTRIBUTION WIDTH 16.5 % (11.6-17.2); WHITE BLOOD COUNT 5.2 TH/MM3 (4.0-11.0)
[2016-12-06 04:31] LABS: ALKALINE PHOSPHATASE 79 U/L (45-117); ALT (GPT) 58 U/L (10-53); ANION GAP 12 MEQ/L (5-15); AST (GOT) 74 U/L (15-37); BICARBONATE 17.7 MEQ/L (21.0-32.0); BLOOD UREA NITROGEN 25 MG/DL (7-18); CHLORIDE 100 MEQ/L (98-107); GLOMERULAR FILTRATION RATE 69 ML/MIN (>89); MAGNESIUM 2.3 MG/DL (1.5-2.5); POTASSIUM 4.3 MEQ/L (3.5-5.1); SODIUM (NA) 130 MEQ/L (136-145); TOTAL BILIRUBIN ADULT 5.2 MG/DL (0.2-1.0)
[2016-12-06 05:06] LABS: HEMO FLAGS AUTO DIFF
[2016-12-06 05:07] LABS: PLATELET ESTIMATE SMEAR LOW (NORMAL); PLATELET MORPHOLOGY NORMAL (NORMAL)
[2016-12-06 05:08] LABS: SCAN/DIFF AUTO DIFF CONFIRMED
[2016-12-06] MEDS: CHLORHEXIDINE GLUCONATE 2 % 1 PACK (2 CLOTHS) TOP SCH (05:17)
[2016-12-06] MEDS: INSULIN ASPART SUPPLEMENTAL SCALE SQ SCH ×4 (07:00→22:04)
[2016-12-06] MEDS: PROPRANOLOL HCL 20 MG TAB PO SCH ×2 (08:27→22:01)
[2016-12-06] MEDS: SODIUM CHLORIDE 0.9% FLUSH 5 ML FLUSH IV FLUSH SCH ×2 (08:28→22:02)
[2016-12-06] MEDS: PANTOPRAZOLE SODIUM 40 MG VIAL IV SCH (08:28)
[2016-12-06] MEDS: RIFAXIMIN 550 MG TAB PO SCH ×2 (08:28→22:01)
[2016-12-06] MEDS: FUROSEMIDE 40 MG TAB PO SCH ×2 (08:28→22:01)
[2016-12-06] MEDS: LACTULOSE SYRUP 20 GM/30 ML CUP PO SCH ×2 (08:28→22:01)
[2016-12-06] MEDS: NYSTATIN 100,000 UNIT/GM CREAM 15 GM TOPICAL SCH (08:28)
--- NOTE | 2016-12-06 10:13 | HHI.GIFU ---
Subjective Remarks Resting in bed. States she feels much better. Had 12 L removed during paracentesis yesterday. She is now alert and oriented 3. She states that she has not had a bowel movement yet but just took her lactulose (Merary Hernandez) Objective Vitals I&O Vital Signs Date Time Temp Pulse Resp B/P Pulse Ox O2 Delivery O2 Flow Rate FiO2 12/06/16 08:00 74 12/06/16 08:00 97.8 74 15 113/59 98 12/06/16 06:00 80 12/06/16 04:00 75 12/06/16 04:00 99.0 75 16 98/55 97 12/06/16 02:00 81 12/06/16 00:00 98.6 82 18 100/51 95 12/06/16 00:00 82 12/05/16 23:44 20 12/05/16 22:00 82 12/05/16 20:00 83 12/05/16 20:00 98.5 83 18 106/55 97 12/05/16 18:00 86 12/05/16 16:00 98.0 86 21 120/59 100 12/05/16 16:00 85 12/05/16 14:00 81 12/05/16 13:50 80 12/05/16 13:50 98.1 80 14 107/52 98 12/05/16 13:40 97.6 80 18 115/53 94 12/05/16 11:35 97.6 83 14 117/69 96 12/05/16 10:52 84 20 116/64 98 Room Air I/O 12/05/16 12/05/16 12/05/16 12/06/16 12/06/16 12/06/16 06:59 14:59 22:59 06:59 14:59 22:59 Intake Total 500 ml Output Total 1100 ml 300 ml 350 ml Balance -1100 ml -300 ml 150 ml Intake Oral 300 ml IV Total 200 ml Output Urine Total 1100 ml 300 ml 350 ml # Voids 0 Laboratory Laboratory Tests Test 12/05/16 12/05/16 12/05/16 12/06/16 11:50 13:40 16:37 03:50 Peritoneal Fluid WBC 220 Peritoneal Fluid RBC 1609 Peritoneal Fluid Neutrophils 67 Peritoneal Fluid Lymphocytes 24 Peritoneal Fluid Monocytes 2 Peritoneal Fluid Mesothelial 1 Cells Peritoneal Fluid Histiocytes 6 Peritoneal Fluid Total Protein 1.0 Peritoneal Fluid Albumin 0.5 Peritoneal Fluid LDH 35 Peritoneal Fluid Glucose 130 Peritoneal Fluid Amylase 17 Peritoneal Fluid Lipase 147 Nasal Screen MRSA (PCR) NEGATIVE White Blood Count 4.9 5.2 Red Blood Count 2.82 2.86 Hemoglobin 9.6 9.6 Hematocrit 27.3 27.4 Mean Corpuscular Volume 96.9 95.9 Mean Corpuscular Hemoglobin 34.0 33.6 Mean Corpuscular Hemoglobin 35.1 35.0 Concent Red Cell Distribution Width 16.6 16.5 Platelet Count 52 44 Mean Platelet Volume 7.7 7.7 Sodium Level 128 130 Potassium Level 4.5 4.3 Chloride Level 98 100 Carbon Dioxide Level 16.8 17.7 Anion Gap 13 12 Blood Urea Nitrogen 25 25 Creatinine 0.87 0.86 Estimat Glomerular Filtration 68 69 Rate Random Glucose 143 148 Calcium Level 7.8 7.5 Total Bilirubin 6.4 5.2 Aspartate Amino Transf 82 74 (AST/SGOT) Alanine Aminotransferase 60 58 (ALT/SGPT) Alkaline Phosphatase 88 79 Lactate Dehydrogenase 162 Total Protein 5.7 4.9 Albumin 3.5 2.8 Random Cortisol 12.7 Neutrophils (%) (Auto) 77.2 Lymphocytes (%) (Auto) 6.0 Monocytes (%) (Auto) 14.4 Eosinophils (%) (Auto) 1.9 Basophils (%) (Auto) 0.5 Neutrophils # (Auto) 4.0 Lymphocytes # (Auto) 0.3 Monocytes # (Auto) 0.8 Eosinophils # (Auto) 0.1 Basophils # (Auto) 0.0 CBC Comment AUTO DIFF Differential Comment AUTO DIFF CONFIRMED Platelet Estimate LOW Platelet Morphology Comment NORMAL Red Cell Morphology Comment NORMAL Phosphorus Level 3.6 Magnesium Level 2.3 Date/Time Procedure Status Source Growth 12/05/16 11:50 Gram Stain - Final Resulted Fluid Peritoneal Fluid 12/05/16 11:50 Body Fluid Culture Resulted Fluid Peritoneal Fluid Pending 12/04/16 23:14 Urine Culture - Preliminary Resulted Urine Catheterized Urine IMMATURE GROWTH - REINCUBATE 12/04/16 21:15 Aerobic Blood Culture - Preliminary Resulted Blood Peripheral NO GROWTH IN 1 DAY 12/04/16 21:15 Anaerobic Blood Culture - Preliminary Resulted Blood Peripheral NO GROWTH IN 1 DAY Imaging Last Impressions Head CT 12/05/167 Signed Impressions: Service Date/Time: Monday, December 05, 2016 08:59 - CONCLUSION: Normal examination for a patient of this age. No significant change has occurred. Bryan Mahmood MD Cyst Biopsy Asp-Paracentesis US 12/05/16 0000 Signed Impressions: Service Date/Time: Monday, December 05, 2016 11:26 - CONCLUSION: Uncomplicated ultrasound guided paracentesis. Patient received albumin. Nitin Cook MD FACR Abdomen/Pelvis CT 12/05/16 0000 Signed Impressions: Service Date/Time: Monday, December 05, 2016 09:03 - CONCLUSION: 1. Liver cirrhosis with moderate ascites, splenomegaly and varices similar in appearance to prior CT examinations. 2. Stable right adnexal mass measuring about 7.7 cm compared with September 2015. 3. Downs catheter in bladder. No bowel obstruction. No gastric distention. Bryan Mahmood MD Chest X-Ray 12/04/162108 Signed Impressions: Service Date/Time: Sunday, December 04, 2016 21:09 - CONCLUSION: No definite infiltrate Toñito Fulton MD Physical Exam HEENT: Normocephalic; atraumatic; no jaundice. CHEST: CTA, diminished CARDIAC: RRR ABDOMEN: Soft, mild ascites. nontender; hepatosplenomegaly; bowel sounds are present in all four quadrants. EXTREMITIES: BLE edema more so in LLE. SKIN: Multiple ecchymotic area PULL OUT OPERATOR: A/Ox3 (Merary Hernandez) Assessment and Plan Plan ASSESSMENT: - Elevated LFTs with liver cirrhosis. MELD 16. Unclear etiology for liver cirrhosis. Dx in 2013 and was told at this time this was related to fatty liver disease. She was recently told by her PCP/DIE STAMPING PRESS OPERATOR that she may have autoimmune hepatitis based on a positive JOSH. She was seen by Dr. Escalante in 2014 and underwent liver workup at that time and this revealed JOSH positive, AMA < 20.0, ASMA negative, Celiac panel negative, Iron saturation 26.1%, AFP 5.4, Hepatitis panel negative. She continues to have JOSH positive with titer 1:160. She seems to have decompensation with recurrent ascites and worsening hepatic encephalopathy since August of this year. Abdomen/ Pelvis CT (12/05/16)----> 1. Liver cirrhosis with moderate ascites, splenomegaly and varices similar in appearance to prior CT examinations. 2. Stable right adnexal mass measuring about 7.7 cm compared with September 2015. 3. Downs catheter in bladder. No bowel obstruction. No gastric distention. This could be autoimmune hepatitis, although her was ASMA negative. ALKM-1, ALC-1, IgG pending, to exclude type II autoimmune hepatitis. This could also be decompensation from her known liver disease- possibly related to fatty liver dz and/or medication induced. Spoke to Dr. Alonso Cook re: possible liver disease and he does not feel that he can safely obtain biopsy with her large volume ascites and recommends considering this once her ascites is better controlled. ? transjugular liver biopsy if ascites not better soon. Needs outpatient followup, referral to tertiary for liver transplant evaluation as outpatient. LFT 5.2, 74, ALT 58, Alk Phosph 79. - Recurrent ascites. S/P US guided paracentesis with removal of 12,300cc of fluid. Cx pending. Cipro for UTI. - AMS, Hepatic encephalopathy. Xifaxan, Lactulose. Improved. Now a/ox3 - GERD. PPI. Stable. EGD during this hospitalization. - N/V since Loi. Stable. PPI. Consider EGD during this hospitalization. - Coagulopathy, Thrombocytopenia. PT 14.2, INR 1.3 yesterday. Plt 44 - UTI, Cx with immature growth. Cipro. - Hyponatremia, Hyperkalemia. per CCM - Portal hypertension, hx esophageal varices. EGD (09/21/15)----> duodenitis, hiatal hernia, gastritis in the antrum, esophageal varices - s/p banding x 2, portal gastropathy. Antral mucosa with focal mild chronic inflammation of the lamina propria. Acute inflammation is not identified. A bharathi stain is negative for helicobacter, duodenal mucosa with features suggestive of peptic duodenitis. Repeat was recommended for 3 months. Propranolol. EGD during this hospitalization. PLAN: - Plan for egd with possible band ligation in am - Obtain consents - 2 gram sodium diet today - NPO after MN - Cont. Lasix - Cont. PPI - Cont. Propranolol - Cont. Lactulose - Cont. Xifaxan - Await ALKM-1, ALC-1,IgG to exclude type II autoimmune hepatitis. - Spoke to Dr. Alonso Cook re: possible liver disease and he does not feel that he can safely obtain biopsy with her large volume ascites and recommends considering this once her ascites is better controlled. Consider transjugular liver biopsy if ascites does not improve soon - Supportive care - Will need outpatient follow up and referral to tertiary for liver transplant evaluation as outpatient - Further recommendations to follow based on results of above - Pt seen and examined by Dr. Newell and myself and this note is written on his behalf (Merary Hernandez) Physician Comments Patient was seen and examined, agree with above note and plan, plan EGD in am, guarded prognosis. (Alannah Newell MD) Merary Hernandez Dec 06, 2016 10:13 Alannah Newell MD Dec 06, 2016 20:01
--- NOTE | 2016-12-06 11:24 | HHI.PR ---
Subjective Remarks Follow up Hepatic encephalopathy 12/06/16-patient seen and examined; A&O x 3; no acute event overnight. No BM this AM yet. s/p Paracentesis with 12L out on 12/05/16 Objective Vitals Vital Signs Date Time Temp Pulse Resp B/P Pulse Ox O2 Delivery O2 Flow Rate FiO2 12/06/16 10:00 73 12/06/16 08:00 74 12/06/16 08:00 97.8 74 15 113/59 98 12/06/16 06:00 80 12/06/16 04:00 75 12/06/16 04:00 99.0 75 16 98/55 97 12/06/16 02:00 81 12/06/16 00:00 98.6 82 18 100/51 95 12/06/16 00:00 82 12/05/16 23:44 20 12/05/16 22:00 82 12/05/16 20:00 83 12/05/16 20:00 98.5 83 18 106/55 97 12/05/16 18:00 86 12/05/16 16:00 98.0 86 21 120/59 100 12/05/16 16:00 85 12/05/16 14:00 81 12/05/16 13:50 80 12/05/16 13:50 98.1 80 14 107/52 98 12/05/16 13:40 97.6 80 18 115/53 94 12/05/16 11:35 97.6 83 14 117/69 96 I/O 12/05/16 12/05/16 12/05/16 12/06/16 12/06/16 12/06/16 07:00 15:00 23:00 07:00 15:00 23:00 Intake Total 500 ml Output Total 1100 ml 300 ml 350 ml Balance -1100 ml -300 ml 150 ml Intake Oral 300 ml IV Total 200 ml Output Urine Total 1100 ml 300 ml 350 ml # Voids 0 Result Diagram: 12/06/16 0350 12/06/16 035 Imaging Last Impressions Head CT 12/05/162108 Signed Impressions: Service Date/Time: Monday, December 05, 2016 08:59 - CONCLUSION: Normal examination for a patient of this age. No significant change has occurred. Bryan Mahmood MD Cyst Biopsy Asp-Paracentesis US 12/05/16 0000 Signed Impressions: Service Date/Time: Monday, December 05, 2016 11:26 - CONCLUSION: Uncomplicated ultrasound guided paracentesis. Patient received albumin. Nitin Cook MD FACR Abdomen/Pelvis CT 12/05/16 0000 Signed Impressions: Service Date/Time: Monday, December 05, 2016 09:03 - CONCLUSION: 1. Liver cirrhosis with moderate ascites, splenomegaly and varices similar in appearance to prior CT examinations. 2. Stable right adnexal mass measuring about 7.7 cm compared with September 2015. 3. Downs catheter in bladder. No bowel obstruction. No gastric distention. Bryan Mahmood MD Chest X-Ray 12/04/162108 Signed Impressions: Service Date/Time: Sunday, December 04, 2016 21:09 - CONCLUSION: No definite infiltrate Toñito Fulton MD Objective Remarks GENERAL: NAD SKIN: Warm and dry. HEAD: Normocephalic. EYES: No scleral icterus. No injection or drainage. NECK: Supple, trachea midline. No JVD or lymphadenopathy. CARDIOVASCULAR: Regular rate and rhythm with II/ APRIL RESPIRATORY: Breath sounds equal bilaterally. No accessory muscle use. GASTROINTESTINAL: Abdomen soft, non-tender, nondistended. +BS MUSCULOSKELETAL: No cyanosis, or edema. BACK: Nontender without obvious deformity. No CVA tenderness. A/P Problem List: (1) Hepatic encephalopathy ICD Code: K72.90 Status: Acute (2) Liver disease ICD Code: K76.9 Status: Acute Assessment and Plan 56 years Grade 3 hepatic encephalopathy-Resolved Depression Diabetic Peripheral neuropathy Continue rifaximin 550 mg by mouth twice a day. Continue lactulose 30 g by mouth twice a day. Continue to Hold sedatives for now including Benadryl and Flexeril 5 mg by mouth 3 times a day Lactic acidemia-Resolved Autoimmune hepatopathy Cirrhosis Ambar Summers C, MELD 26 Splenomegaly Portal hypertension s/p Paracentesis 12/05/16 with 12L fluid out Continue propranolol/Lasix/ PPI/Lactulose/Xifaxan Hold spironolactone due to hyperkalemia Await ALKM-1,Hepatitis panel, ALC-1,IgG Pending Appreciate input from GI and plan for EGD on 12/07/16 Hyponatremia Hyperkalemia Hold spironolactone for now due to hyperkalemia Continue Lasix 40 mg by mouth twice a day. UTI Received Cipro and emergency department. continue fluoroquinolone for SBP treatment and prophylaxis. Follow-up ascitic fluid cell counts Yeast infection Apply nystatin cream to the intertriginous regions in groin. Chronic thrombocytopenia secondary to cirrhosis Mild Coagulopathy secondary to cirrhosis Monitor CBC Diabetes mellitus Hold metformin. Low-dose insulin sliding scale at bedside glucose every 6 hours PROPH: Hold pharmacologic DVT prophylaxis pending paracentesis. SCDs for DVT prophylaxis. Protonix 40 month grams IV daily for stress ulcer prophylaxis. Transfer to Med/surg Tray Claire MD Dec 06, 2016 11:24 Diabetes mellitus Hold metformin. Low-dose insulin sliding scale at bedside glucose every 6 hours PROPH: Hold pharmacologic DVT prophylaxis pending paracentesis. SCDs for DVT prophylaxis. Protonix 40 month grams IV daily for stress ulcer prophylaxis. Tray Claire MD Dec 06, 2016 11:24
[2016-12-06] MEDS: traMADol HCL 50 MG TAB PO PRN (12:54)
[2016-12-06] MEDS: ONDANSETRON HCL 4 MG/2 ML VIAL IV PRN (22:13)
[2016-12-07] VITALS (7 sets, daily range): BP systolic 90–131; BP diastolic 53–62; PULSE 56–67; RESP 16–18; TEMP 97–97.5; O2SAT 97–98
[2016-12-07] MEDS: NYSTATIN 100,000 UNIT/GM CREAM 15 GM TOPICAL SCH ×3 (00:46→21:48)
[2016-12-07] MEDS: CIPROFLOXACIN 400 MG PREMIX 200 ML IV SCH (00:54)
[2016-12-07] MEDS: CHLORHEXIDINE GLUCONATE 2 % 1 PACK (2 CLOTHS) TOP SCH (04:00)
[2016-12-07] MEDS: INSULIN ASPART SUPPLEMENTAL SCALE SQ SCH ×4 (06:30→21:00)
[2016-12-07 06:51] LABS: INTERNATIONAL NORMALIZED RATIO 1.4 RATIO; PROTHROMBIN TIME - PATIENT 16.1 SEC (9.8-11.6)
[2016-12-07 07:05] LABS: ALT (GPT) 55 U/L (10-53); ANION GAP 10 MEQ/L (5-15); AST (GOT) 69 U/L (15-37); BICARBONATE 18.9 MEQ/L (21.0-32.0); BLOOD UREA NITROGEN 24 MG/DL (7-18); CHLORIDE 97 MEQ/L (98-107); GLOMERULAR FILTRATION RATE 83 ML/MIN (>89); POTASSIUM 4.1 MEQ/L (3.5-5.1); SODIUM (NA) 126 MEQ/L (136-145)
[2016-12-07 07:07] LABS: ALKALINE PHOSPHATASE 94 U/L (45-117); TOTAL BILIRUBIN ADULT 5.9 MG/DL (0.2-1.0)
[2016-12-07 07:34] LABS: AUTOMATED NEUTROPHIL # 7.4 TH/MM3 (1.8-7.7); BASOPHIL % 0.3 % (0.0-2.0); EOSINOPHIL # 0.1 TH/MM3 (0-0.4); EOSINOPHIL % 1.4 % (0.0-4.0); HEMATOCRIT 32.1 % (35.0-46.0); LYMPH % 3.5 % (9.0-44.0); LYMPHOCYTE # 0.3 TH/MM3 (1.0-4.8); MEAN CELL VOLUME 96.3 FL (80.0-100.0); MEAN CORPUSCULAR HGB CONC 35.3 % (32.0-36.0); MONO % 11.3 % (0.0-8.0); NEUT % 83.5 % (16.0-70.0); PLATELET COUNT 54 TH/MM3 (150-450); RED BLOOD COUNT 3.34 MIL/MM3 (4.00-5.30); WHITE BLOOD COUNT 8.8 TH/MM3 (4.0-11.0)
[2016-12-07 07:38] LABS: HEMO FLAGS AUTO DIFF
[2016-12-07 08:23] LABS: PLATELET MORPHOLOGY NORMAL (NORMAL); SCAN/DIFF AUTO DIFF CONFIRMED
[2016-12-07 08:24] LABS: PLATELET ESTIMATE SMEAR LOW (NORMAL); TEARDROP RBCS 1+ (NORMAL)
--- NOTE | 2016-12-07 09:19 | HHI.PR ---
Subjective Remarks Follow up Hepatic encephalopathy 12/06/16-patient seen and examined; A&O x 3; no acute event overnight. No BM this AM yet. s/p with 12L out on 12/05/16 12/07/16-patient seen and examined; complains of no significant abdominal pain. Afebrile and denies any shortness of breath. Objective Vitals Vital Signs Date Time Temp Pulse Resp B/P Pulse Ox O2 Delivery O2 Flow Rate FiO2 12/07/16 08:00 97.4 62 18 103/62 97 12/07/16 04:00 Room Air 12/07/16 04:00 97.0 59 17 98/57 97 12/07/16 00:00 97.5 67 18 131/61 98 12/07/16 00:00 Room Air 12/06/16 20:00 97.4 72 17 120/69 99 12/06/16 20:00 Room Air 12/06/16 18:00 88 12/06/16 16:00 98.1 79 19 101/55 100 12/06/16 16:00 79 12/06/16 14:00 80 12/06/16 12:00 80 12/06/16 12:00 98.0 88 16 108/58 100 12/06/16 10:00 73 I/O 12/06/16 12/06/16 12/06/16 12/07/16 12/07/16 12/07/16 07:00 15:00 23:00 07:00 15:00 23:00 Intake Total 500 ml 480 ml 240 ml 0 ml Output Total 350 ml 300 ml Balance 150 ml 180 ml 240 ml 0 ml Intake Oral 300 ml 480 ml 240 ml 0 ml IV Total 200 ml 0 ml Output Urine Total 350 ml 300 ml # Voids 1 1 1 # Bowel Movements 0 0 0 Result Diagram: 12/07/16 0519 12/07/16 0519 Imaging Last Impressions Head CT 12/05/162108 Signed Impressions: Service Date/Time: Monday, December 05, 2016 08:59 - CONCLUSION: Normal examination for a patient of this age. No significant change has occurred. Bryan Mahmood MD Cyst Biopsy Asp-Paracentesis US 12/05/16 0000 Signed Impressions: Service Date/Time: Monday, December 05, 2016 11:26 - CONCLUSION: Uncomplicated ultrasound guided paracentesis. Patient received albumin. Nitin Cook MD FACR Abdomen/Pelvis CT 12/05/16 0000 Signed Impressions: Service Date/Time: Monday, December 05, 2016 09:03 - CONCLUSION: 1. Liver cirrhosis with moderate ascites, splenomegaly and varices similar in appearance to prior CT examinations. 2. Stable right adnexal mass measuring about 7.7 cm compared with September 2015. 3. Downs catheter in bladder. No bowel obstruction. No gastric distention. Bryan Mahmood MD Chest X-Ray 12/04/169 Signed Impressions: Service Date/Time: Sunday, December 04, 2016 21:09 - CONCLUSION: No definite infiltrate Toñito Fulton MD Objective Remarks GENERAL: NAD SKIN: Warm and dry. HEAD: Normocephalic. EYES: No scleral icterus. No injection or drainage. NECK: Supple, trachea midline. No JVD or lymphadenopathy. CARDIOVASCULAR: Regular rate and rhythm with II/ APRIL RESPIRATORY: Breath sounds equal bilaterally. No accessory muscle use. GASTROINTESTINAL: Abdomen soft, non-tender, mildly distended. +BS MUSCULOSKELETAL: No cyanosis, or edema. BACK: Nontender without obvious deformity. No CVA tenderness. A/P Problem List: (1) Hepatic encephalopathy ICD Code: K72.90 Status: Acute (2) Liver disease ICD Code: K76.9 Status: Acute Assessment and Plan 56 years Grade 3 hepatic encephalopathy-Resolved Depression Diabetic Peripheral neuropathy Continue rifaximin 550 mg by mouth twice a day. Continue lactulose 30 g by mouth twice a day. Continue to Hold sedatives for now including Benadryl and Flexeril 5 mg by mouth 3 times a day Palliative care consultation Lactic acidemia-Resolved Autoimmune hepatopathy Cirrhosis Ambar Summers C, MELD 26 Splenomegaly Portal hypertension s/p Paracentesis 12/05/16 with 12L fluid out Continue propranolol/Lasix/ PPI/Lactulose/Xifaxan Hold spironolactone due to hyperkalemia Await ALKM-1,Hepatitis panel, ALC-1,IgG Pending Appreciate input from GI and plan for EGD possible on 12/07/16 Hyponatremia Hyperkalemia Hold spironolactone for now due to hyperkalemia Continue Lasix 40 mg by mouth twice a day. UTI Received Cipro and emergency department. continue fluoroquinolone for SBP treatment and prophylaxis. Follow-up ascitic fluid cell counts Yeast infection Apply nystatin cream to the intertriginous regions in groin. Chronic thrombocytopenia secondary to cirrhosis Mild Coagulopathy secondary to cirrhosis Monitor CBC Diabetes mellitus Hold metformin. Low-dose insulin sliding scale at bedside glucose every 6 hours PROPH: Hold pharmacologic DVT prophylaxis pending paracentesis. SCDs for DVT prophylaxis. Protonix 40 month grams IV daily for stress ulcer prophylaxis. Tray Claire MD Dec 07, 2016 09:18
[2016-12-07] MEDS: LACTULOSE SYRUP 20 GM/30 ML CUP PO SCH ×2 (10:50→21:46)
[2016-12-07] MEDS: FUROSEMIDE 40 MG TAB PO SCH ×2 (10:51→21:47)
[2016-12-07] MEDS: RIFAXIMIN 550 MG TAB PO SCH ×2 (10:51→21:47)
[2016-12-07] MEDS: PROPRANOLOL HCL 20 MG TAB PO SCH ×2 (10:51→21:47)
[2016-12-07] MEDS: SODIUM CHLORIDE 0.9% FLUSH 5 ML FLUSH IV FLUSH SCH ×2 (10:52→21:48)
[2016-12-07] MEDS: PANTOPRAZOLE SODIUM 40 MG VIAL IV SCH (10:52)
--- NOTE | 2016-12-07 13:50 | HHI.GIFU ---
Subjective Remarks some SOB, still distended abdomen, jaundice Objective Vitals I&O Vital Signs Date Time Temp Pulse Resp B/P Pulse Ox O2 Delivery O2 Flow Rate FiO2 12/07/16 11:37 97.4 62 18 103/62 97 12/07/16 08:00 97.4 62 18 103/62 97 12/07/16 04:00 Room Air 12/07/16 04:00 97.0 59 17 98/57 97 12/07/16 00:00 97.5 67 18 131/61 98 12/07/16 00:00 Room Air 12/06/16 20:00 97.4 72 17 120/69 99 12/06/16 20:00 Room Air 12/06/16 18:00 88 12/06/16 16:00 98.1 79 19 101/55 100 12/06/16 16:00 79 12/06/16 14:00 80 I/O 12/06/16 12/06/16 12/06/16 12/07/16 12/07/16 12/07/16 07:00 15:00 23:00 07:00 15:00 23:00 Intake Total 500 ml 480 ml 240 ml 0 ml Output Total 350 ml 300 ml Balance 150 ml 180 ml 240 ml 0 ml Intake Oral 300 ml 480 ml 240 ml 0 ml IV Total 200 ml 0 ml Output Urine Total 350 ml 300 ml # Voids 1 1 1 # Bowel Movements 0 0 0 Laboratory Laboratory Tests Test 12/07/16 05:19 White Blood Count 8.8 Red Blood Count 3.34 Hemoglobin 11.3 Hematocrit 32.1 Mean Corpuscular Volume 96.3 Mean Corpuscular Hemoglobin 34.0 Mean Corpuscular Hemoglobin 35.3 Concent Red Cell Distribution Width 16.0 Platelet Count 54 Mean Platelet Volume 8.0 Neutrophils (%) (Auto) 83.5 Lymphocytes (%) (Auto) 3.5 Monocytes (%) (Auto) 11.3 Eosinophils (%) (Auto) 1.4 Basophils (%) (Auto) 0.3 Neutrophils # (Auto) 7.4 Lymphocytes # (Auto) 0.3 Monocytes # (Auto) 1.0 Eosinophils # (Auto) 0.1 Basophils # (Auto) 0.0 CBC Comment AUTO DIFF Differential Comment AUTO DIFF CONFIRMED Platelet Estimate LOW Platelet Morphology Comment NORMAL Tear Drop Cells 1+ Prothrombin Time 16.1 Prothromb Time International 1.4 Ratio Sodium Level 126 Potassium Level 4.1 Chloride Level 97 Carbon Dioxide Level 18.9 Anion Gap 10 Blood Urea Nitrogen 24 Creatinine 0.73 Estimat Glomerular Filtration 83 Rate Random Glucose 145 Calcium Level 7.8 Total Bilirubin 5.9 Aspartate Amino Transf 69 (AST/SGOT) Alanine Aminotransferase 55 (ALT/SGPT) Alkaline Phosphatase 94 Total Protein 5.1 Albumin 2.8 Date/Time Procedure Status Source Growth 12/05/16 11:50 Gram Stain - Final Resulted Fluid Peritoneal Fluid 12/05/16 11:50 Body Fluid Culture - Preliminary Resulted Fluid Peritoneal Fluid NO GROWTH IN 48 HOURS. 12/04/16 23:14 Urine Culture - Final Complete Urine Catheterized Urine Staphylococcus Aureus 12/04/16 21:15 Aerobic Blood Culture - Preliminary Resulted Blood Peripheral NO GROWTH IN 3 DAYS 12/04/16 21:15 Anaerobic Blood Culture - Preliminary Resulted Blood Peripheral NO GROWTH IN 3 DAYS Physical Exam HEENT: Normocephalic; atraumatic; jaundice. CHEST: CTA, diminished CARDIAC: RRR ABDOMEN: Soft, mild ascites. nontender; hepatosplenomegaly; bowel sounds are present in all four quadrants. EXTREMITIES: BLE edema more so in LLE. SKIN: Multiple ecchymotic area SCORER SINGLE: A/Ox3 Assessment and Plan Plan ASSESSMENT: - Elevated LFTs with liver cirrhosis. MELD 16. Unclear etiology for liver cirrhosis. Dx in 2013 and was told at this time this was related to fatty liver disease. She was recently told by her PCP/RESEARCH ANALYST that she may have autoimmune hepatitis based on a positive JOSH. She was seen by Dr. Escalante in 2014 and underwent liver workup at that time and this revealed JOSH positive, AMA < 20.0, ASMA negative, Celiac panel negative, Iron saturation 26.1%, AFP 5.4, Hepatitis panel negative. She continues to have JOSH positive with titer 1:160. She seems to have decompensation with recurrent ascites and worsening hepatic encephalopathy since August of this year. Abdomen/ Pelvis CT (12/05/16)----> 1. Liver cirrhosis with moderate ascites, splenomegaly and varices similar in appearance to prior CT examinations. 2. Stable right adnexal mass measuring about 7.7 cm compared with September 2015. 3. Downs catheter in bladder. No bowel obstruction. No gastric distention. This could be autoimmune hepatitis, although her was ASMA negative. ALKM-1, ALC-1, IgG pending, to exclude type II autoimmune hepatitis. This could also be decompensation from her known liver disease- possibly related to fatty liver dz and/or medication induced. Spoke to Dr. Alonso Cook re: possible liver disease and he does not feel that he can safely obtain biopsy with her large volume ascites and recommends considering this once her ascites is better controlled. ? transjugular liver biopsy if ascites not better soon. Needs outpatient followup, referral to tertiary for liver transplant evaluation as outpatient. LFT 5.2, 74, ALT 58, Alk Phosph 79. - Recurrent ascites. S/P US guided paracentesis with removal of 12,300cc of fluid. Cx pending. Cipro for UTI. - AMS, Hepatic encephalopathy. Xifaxan, Lactulose. Improved. Now a/ox3 - GERD. PPI. Stable. EGD during this hospitalization. - N/V since Loi. Stable. PPI. Consider EGD during this hospitalization. - Coagulopathy, Thrombocytopenia. PT 14.2, INR 1.3 yesterday. Plt 44 - UTI, Cx with immature growth. Cipro. - Hyponatremia, Hyperkalemia. per CCM - Portal hypertension, hx esophageal varices. EGD (09/21/15)----> duodenitis, hiatal hernia, gastritis in the antrum, esophageal varices - s/p banding x 2, portal gastropathy. Antral mucosa with focal mild chronic inflammation of the lamina propria. Acute inflammation is not identified. A bharathi stain is negative for helicobacter, duodenal mucosa with features suggestive of peptic duodenitis. Repeat was recommended for 3 months. Propranolol. 1-17 doing ok EGD with banding today, had two large varices with nipple sign ( high potential of bleeding) I talked to dr. Shashi Cook from IR to perform liver Bx. PLAN: - 2 gram sodium dietafter liver Bx today - keep npo if having liver Bx today - Cont. Lasix - Cont. PPI - Cont. Propranolol - Cont. Lactulose - Cont. Xifaxan - Await ALKM-1, ALC-1,IgG to exclude type II autoimmune hepatitis. - Spoke to Dr. Alonso Cook re: possible liver disease and he does not feel that he can safely obtain biopsy with her large volume ascites and recommends considering this once her ascites is better controlled. Consider transjugular liver biopsy if ascites does not improve soon - Supportive care - Will need outpatient follow up and referral to tertiary for liver transplant evaluation as outpatient - Further recommendations to follow based on results of above Alannah Newell MD Dec 07, 2016 13:50
[2016-12-07] MEDS ORDERED: DO NOT ADM ANY ANTICOAGULANT DRUGS XX PRN (13:53)
--- NOTE | 2016-12-07 13:54 | MR ---
cc: YUE MAURICE DATE: 12/07/2016 DATE OF : 1960 REFERRING PHYSICIAN: Dr. Claire. PROCEDURE: Upper gastrointestinal endoscopy with esophageal varices banding. INDICATIONS FOR PROCEDURE: A 56 year-old lady with cirrhosis. Anemia. PROCEDURE: After informing the patient about the procedure and complications, consent was signed. The patient was placed on her back. She was intubated by anesthesia, after sedation, the scope was placed into the mouth, advanced under video guidance to the second portion of the duodenum. The scope was withdrawn back to the stomach. Retroflexion was preformed. The scope was withdrawn back and then a 7-shooter banding was applied to the scope and two varies were banded, one of them had white nipple sign on it. The scope was withdrawn back without any immediate complications. FINDINGS: 1. Two large grade 3 varices, one of them has white nipple sign, this was both banded. 2. Stomach; some residual food. 3. Duodenum; normal. 4. No other abnormalities. RECOMMENDATIONS: 1. Liver biopsy. 2. NPO for now until the morning. 3. CBC. 4. Guarded prognosis. MD STEVE Rivas/breanna /1:45 PM /1:49 PM
[2016-12-07] MEDS ORDERED: PROPOFOL 200 MG/20 ML AMP IV ONE (16:10)
[2016-12-08] VITALS (8 sets, daily range): BP systolic 79–89; BP diastolic 45–54; PULSE 55–83; RESP 16–20; TEMP 97.5–98.1; O2SAT 95–97
[2016-12-08] MEDS: CIPROFLOXACIN 400 MG PREMIX 200 ML IV SCH (00:52)
[2016-12-08] MEDS: CHLORHEXIDINE GLUCONATE 2 % 1 PACK (2 CLOTHS) TOP SCH (04:00)
[2016-12-08] MEDS: INSULIN ASPART SUPPLEMENTAL SCALE SQ SCH ×4 (06:09→21:00)
[2016-12-08] MEDS: SODIUM CHLORIDE 0.9% FLUSH 5 ML FLUSH IV FLUSH SCH ×2 (08:51→21:31)
[2016-12-08] MEDS: PANTOPRAZOLE SODIUM 40 MG VIAL IV SCH (08:52)
[2016-12-08] MEDS: FUROSEMIDE 40 MG TAB PO SCH ×2 (08:52→21:30)
[2016-12-08] MEDS: NYSTATIN 100,000 UNIT/GM CREAM 15 GM TOPICAL SCH ×2 (08:52→21:34)
[2016-12-08] MEDS: LACTULOSE SYRUP 20 GM/30 ML CUP PO SCH ×2 (08:52→21:30)
[2016-12-08] MEDS: PROPRANOLOL HCL 20 MG TAB PO SCH ×2 (08:52→21:30)
[2016-12-08] MEDS: RIFAXIMIN 550 MG TAB PO SCH ×2 (08:52→21:30)
--- NOTE | 2016-12-08 09:50 | HHI.PR ---
Subjective Remarks Follow up Hepatic encephalopathy 12/06/16-patient seen and examined; A&O x 3; no acute event overnight. No BM this AM yet. s/p with 12L out on 12/05/16 12/07/16-patient seen and examined; complains of no significant abdominal pain. Afebrile and denies any shortness of breath. 12/08/16-patient seen and examined; abdominal still distended. Status post EGD 12/07/16. No nausea no vomiting. Objective Vitals Vital Signs Date Time Temp Pulse Resp B/P Pulse Ox O2 Delivery O2 Flow Rate FiO2 12/08/16 08:48 65 85/46 12/08/16 08:01 97.5 66 18 79/53 95 12/08/16 04:00 97.7 59 16 83/48 95 12/08/16 00:16 97.5 64 16 89/54 95 12/07/16 20:51 97.3 61 16 92/53 97 12/07/16 20:15 Room Air 12/07/16 20:00 65 12/07/16 16:00 97.2 56 18 90/55 97 12/07/16 14:12 62 16 98/50 99 Nasal Cannula 3 12/07/16 14:00 63 16 88/54 99 Nasal Cannula 3 12/07/16 13:45 97.1 63 16 96/47 99 Nasal Cannula 3 12/07/16 11:37 97.4 62 18 103/62 97 I/O 12/07/16 12/07/16 12/07/16 12/08/16 12/08/16 12/08/16 07:00 15:00 23:00 07:00 15:00 23:00 Intake Total 0 ml 870 ml Output Total 0 ml 850 ml Balance 0 ml 870 ml -850 ml Intake Oral 0 ml 120 ml IV Total 400 ml Other 350 ml Output Urine Total 0 ml 850 ml Estimated Blood Loss 0 ml Other 0 ml # Voids 1 1 1 # Bowel Movements 0 0 1 Result Diagram: 12/07/1651812/07/16518 Objective Remarks GENERAL: NAD SKIN: Warm and dry. HEAD: Normocephalic. EYES: No scleral icterus. No injection or drainage. NECK: Supple, trachea midline. No JVD or lymphadenopathy. CARDIOVASCULAR: Regular rate and rhythm with II/ APRIL RESPIRATORY: Breath sounds equal bilaterally. No accessory muscle use. GASTROINTESTINAL: Abdomen soft, non-tender, distended. +BS MUSCULOSKELETAL: No cyanosis, or edema. BACK: Nontender without obvious deformity. No CVA tenderness. A/P Problem List: (1) Hepatic encephalopathy ICD Code: K72.90 Status: Acute (2) Liver disease ICD Code: K76.9 Status: Acute Assessment and Plan 56 years Grade 3 hepatic encephalopathy-Resolved Depression Diabetic Peripheral neuropathy Continue rifaximin 550 mg by mouth twice a day. Continue lactulose 30 g by mouth twice a day. Continue to Hold sedatives for now including Benadryl and Flexeril 5 mg by mouth 3 times a day Palliative care consultation Lactic acidemia-Resolved Autoimmune hepatopathy Cirrhosis Ambar Summers C, MELD 26 Splenomegaly Portal hypertension s/p Paracentesis 12/05/16 with 12L fluid out Continue propranolol/Lasix/ PPI/Lactulose/Xifaxan Hold spironolactone due to hyperkalemia Await ALKM-1,Hepatitis panel, ALC-1,IgG Pending Appreciate input from GI and s/p EGD with varices banding x2 on 12/07/16 Plan for liver biopsy when ascites improved Hyponatremia Hyperkalemia-resolved Continue to hold spironolactone however may restart 12/09/16 Continue Lasix 40 mg by mouth twice a day. UTI Received Cipro and emergency department. Switch to Cipro 500 mg by mouth every 12H Yeast infection Apply nystatin cream to the intertriginous regions in groin. Chronic thrombocytopenia secondary to cirrhosis Mild Coagulopathy secondary to cirrhosis Monitor CBC Diabetes mellitus Hold metformin. Low-dose insulin sliding scale at bedside glucose every 6 hours PROPH: Hold pharmacologic DVT prophylaxis pending paracentesis. SCDs for DVT prophylaxis. Protonix 40 month grams IV daily for stress ulcer prophylaxis. Tray Claire MD Dec 08, 2016 09:49
--- NOTE | 2016-12-08 15:05 | HHI.GIFU ---
Subjective Remarks Resting in bed. No obvious bleeding. No n/v. No abdominal pain. No bm today. Lethargic, but oriented. (Merary Hernandez) Objective Vitals I&O Vital Signs Date Time Temp Pulse Resp B/P Pulse Ox O2 Delivery O2 Flow Rate FiO2 12/08/16 12:00 97.5 55 18 84/46 97 12/08/16 08:48 65 85/46 12/08/16 08:01 97.5 66 18 79/53 95 12/08/16 04:00 97.7 59 16 83/48 95 12/08/16 00:16 97.5 64 16 89/54 95 12/07/16 20:51 97.3 61 16 92/53 97 12/07/16 20:15 Room Air 12/07/16 20:00 65 12/07/16 16:00 97.2 56 18 90/55 97 I/O 12/07/16 12/07/16 12/07/16 12/08/16 12/08/16 12/08/16 07:00 15:00 23:00 07:00 15:00 23:00 Intake Total 0 ml 870 ml Output Total 0 ml 850 ml Balance 0 ml 870 ml -850 ml Intake Oral 0 ml 120 ml IV Total 400 ml Other 350 ml Output Urine Total 0 ml 850 ml Estimated Blood Loss 0 ml Other 0 ml # Voids 1 1 1 # Bowel Movements 0 0 1 Laboratory Date/Time Procedure Status Source Growth 12/05/16 11:50 Gram Stain - Final Complete Fluid Peritoneal Fluid 12/05/16 11:50 Body Fluid Culture - Final Complete Fluid Peritoneal Fluid NO GROWTH IN 72 HRS.--AEROBICALLY OR ... 12/04/16 23:14 Urine Culture - Final Complete Urine Catheterized Urine Staphylococcus Aureus 12/04/16 21:15 Aerobic Blood Culture - Preliminary Resulted Blood Peripheral NO GROWTH IN 4 DAYS 12/04/16 21:15 Anaerobic Blood Culture - Preliminary Resulted Blood Peripheral NO GROWTH IN 4 DAYS Imaging Last Impressions Head CT 12/05/162108 Signed Impressions: Service Date/Time: Monday, December 05, 2016 08:59 - CONCLUSION: Normal examination for a patient of this age. No significant change has occurred. Bryan Mahmood MD Cyst Biopsy Asp-Paracentesis US 12/05/16 0000 Signed Impressions: Service Date/Time: Monday, December 05, 2016 11:26 - CONCLUSION: Uncomplicated ultrasound guided paracentesis. Patient received albumin. Nitin Cook MD FACR Abdomen/Pelvis CT 12/05/16 0000 Signed Impressions: Service Date/Time: Monday, December 05, 2016 09:03 - CONCLUSION: 1. Liver cirrhosis with moderate ascites, splenomegaly and varices similar in appearance to prior CT examinations. 2. Stable right adnexal mass measuring about 7.7 cm compared with September 2015. 3. Downs catheter in bladder. No bowel obstruction. No gastric distention. Bryan Mahmood MD Chest X-Ray 12/04/169 Signed Impressions: Service Date/Time: Sunday, December 04, 2016 21:09 - CONCLUSION: No definite infiltrate Toñito Fulton MD Physical Exam HEENT: Normocephalic; atraumatic; jaundice. CHEST: CTA, diminished CARDIAC: RRR ABDOMEN: Soft, mild-mod ascites. nontender; hepatosplenomegaly; bowel sounds are present in all four quadrants. EXTREMITIES: BLE edema more so in LLE. SKIN: Multiple ecchymotic area PHOTOGRAPHIC TECHNICIAN: A/Ox3 (Merary Hernandez) Assessment and Plan Plan ASSESSMENT: - Elevated LFTs with liver cirrhosis. MELD 16. Unclear etiology for liver cirrhosis. Dx in 2013 and was told at this time this was related to fatty liver disease. She was recently told by her PCP/COPY WORKER that she may have autoimmune hepatitis based on a positive JOSH. She was seen by Dr. Escalante in 2014 and underwent liver workup at that time and this revealed JOSH positive, AMA < 20.0, ASMA negative, Celiac panel negative, Iron saturation 26.1%, AFP 5.4, Hepatitis panel negative. She continues to have JOSH positive with titer 1:160. She seems to have decompensation with recurrent ascites and worsening hepatic encephalopathy since August of this year. Abdomen/ Pelvis CT (12/05/16)----> 1. Liver cirrhosis with moderate ascites, splenomegaly and varices similar in appearance to prior CT examinations. 2. Stable right adnexal mass measuring about 7.7 cm compared with September 2015. 3. Downs catheter in bladder. No bowel obstruction. No gastric distention. This could be autoimmune hepatitis, although her was ASMA negative. ALKM-1, ALC-1, IgG pending, to exclude type II autoimmune hepatitis. This could also be decompensation from her known liver disease- possibly related to fatty liver dz and/or medication induced. Spoke to Dr. Alonso Cook re: possible liver disease and he does not feel that he can safely obtain biopsy with her large volume ascites and recommends considering this once her ascites is better controlled. ? transjugular liver biopsy if ascites not better soon. Needs outpatient followup, referral to tertiary for liver transplant evaluation as outpatient. LFT 5.9, AST 69, ALT 55, Alk Phosph 94. - Recurrent ascites. S/P US guided paracentesis with removal of 12,300cc of fluid. Cx negative. Lasix. Recommend adding spironolactone if okay with primary with hyponatremia. Did have hyperkalemia, but this has since resolved. - AMS, Hepatic encephalopathy. Xifaxan, Lactulose. Improved. Now a/ox3 - GERD. PPI. Stable. EGD during this hospitalization. - N/V since Loi. Stable. PPI. Consider EGD during this hospitalization. - Coagulopathy, Thrombocytopenia. - UTI, Cx with immature growth. Cipro. - Hyponatremia, Hyperkalemia. per primary - Portal hypertension, hx esophageal varices. EGD with band ligation (12/07/16)-- ----> two large varices with nipple sign (high potential of bleeding) Propranolol. PLAN: - 2 gram sodium diet - IR consult for transjugular liver biopsy next week - Cont. Lasix - Consider adding spironolactone if okay primary - Cont. PPI - Cont. Propranolol - Cont. Lactulose - Cont. Xifaxan - Await ALKM-1, ALC-1,IgG to exclude type II autoimmune hepatitis. - Supportive care - Will need outpatient follow up and referral to tertiary for liver transplant evaluation as outpatient - Further recommendations to follow based on results of above - Pt seen and examined by Dr. Newell and myself and this note is written on his behalf (Merary Hernandez) Physician Comments Patient was seen and examined, agree with above note, await complete W/U, liver Bx next week, guarded prognosis. (Alannah Newell MD) Merary Hernandez Dec 08, 2016 15:05 Alannah Newell MD Dec 08, 2016 15:35
[2016-12-08] MEDS: traMADol HCL 50 MG TAB PO PRN (21:29)
[2016-12-08] MEDS: CIPROFLOXACIN 500 MG TAB PO SCH (21:30)
[2016-12-09] VITALS: BP 82/45; PULSE 58; RESP 20; TEMP 97.3; O2SAT 98
[2016-12-09 04:00] VITALS: BP 74/42; PULSE 63; RESP 20; TEMP 97.4; O2SAT 96
[2016-12-09] MEDS: CHLORHEXIDINE GLUCONATE 2 % 1 PACK (2 CLOTHS) TOP SCH (04:00)
[2016-12-09] MEDS: INSULIN ASPART SUPPLEMENTAL SCALE SQ SCH ×4 (06:25→20:15)
[2016-12-09] MEDS: traMADol HCL 50 MG TAB PO PRN (06:26)
[2016-12-09 08:00] VITALS: BP 85/50; PULSE 58; PULSE 64; RESP 16; TEMP 97.2; O2SAT 96
[2016-12-09 08:45] LABS: AUTOMATED NEUTROPHIL # 12.5 TH/MM3 (1.8-7.7); BASOPHIL % 0.1 % (0.0-2.0); EOSINOPHIL # 0.2 TH/MM3 (0-0.4); EOSINOPHIL % 1.1 % (0.0-4.0); HEMATOCRIT 34.1 % (35.0-46.0); LYMPH % 3.6 % (9.0-44.0); LYMPHOCYTE # 0.5 TH/MM3 (1.0-4.8); MEAN CORPUSCULAR HEMOGLOBIN 33.8 PG (27.0-34.0); MEAN CORPUSCULAR HGB CONC 34.9 % (32.0-36.0); MONO % 9.7 % (0.0-8.0); NEUT % 85.5 % (16.0-70.0); PLATELET COUNT 87 TH/MM3 (150-450); RED BLOOD COUNT 3.52 MIL/MM3 (4.00-5.30); RED CELL DISTRIBUTION WIDTH 16.5 % (11.6-17.2); WHITE BLOOD COUNT 14.7 TH/MM3 (4.0-11.0)
[2016-12-09 09:26] LABS: ALKALINE PHOSPHATASE 112 U/L (45-117); ALT (GPT) 51 U/L (10-53); ANION GAP 14 MEQ/L (5-15); AST (GOT) 66 U/L (15-37); BICARBONATE 17.2 MEQ/L (21.0-32.0); BLOOD UREA NITROGEN 51 MG/DL (7-18); CHLORIDE 93 MEQ/L (98-107); GLOMERULAR FILTRATION RATE 21 ML/MIN (>89); POTASSIUM 4.5 MEQ/L (3.5-5.1); TOTAL BILIRUBIN ADULT 6.5 MG/DL (0.2-1.0)
[2016-12-09 09:42] LABS: SODIUM (NA) 124 MEQ/L (136-145)
[2016-12-09 10:05] LABS: HEMO FLAGS AUTO DIFF
[2016-12-09 10:07] LABS: ACANTHOCYTES 1+ (NORMAL); PLATELET ESTIMATE SMEAR LOW (NORMAL); PLATELET MORPHOLOGY NORMAL (NORMAL)
[2016-12-09 10:08] LABS: SCAN/DIFF AUTO DIFF CONFIRMED
[2016-12-09] MEDS: SODIUM CHLORIDE 0.9% FLUSH 5 ML FLUSH IV FLUSH SCH ×2 (10:33→20:15)
[2016-12-09] MEDS: LACTULOSE SYRUP 20 GM/30 ML CUP PO SCH ×2 (10:34→20:15)
[2016-12-09] MEDS: CIPROFLOXACIN 500 MG TAB PO SCH ×2 (10:34→20:15)
[2016-12-09] MEDS: PANTOPRAZOLE SOD 40 MG DELAYED RELEASE TAB PO SCH (10:34)
[2016-12-09] MEDS: PROPRANOLOL HCL 20 MG TAB PO SCH ×2 (10:34→20:15)
[2016-12-09] MEDS: FUROSEMIDE 40 MG TAB PO SCH (10:34)
[2016-12-09] MEDS: NYSTATIN 100,000 UNIT/GM CREAM 15 GM TOPICAL SCH ×2 (10:34→20:16)
[2016-12-09] MEDS: RIFAXIMIN 550 MG TAB PO SCH ×2 (10:34→20:15)
[2016-12-09 12:00] VITALS: BP 80/42; PULSE 57; RESP 17; TEMP 97.6; O2SAT 95
--- NOTE | 2016-12-09 13:31 | HHI.PR ---
Subjective Remarks Follow up Hepatic encephalopathy 12/06/16-patient seen and examined; A&O x 3; no acute event overnight. No BM this AM yet. s/p with 12L out on 12/05/16 12/07/16-patient seen and examined; complains of no significant abdominal pain. Afebrile and denies any shortness of breath. 12/08/16-patient seen and examined; abdominal still distended. Status post EGD 12/07/16. No nausea no vomiting. 12/09/16-patient seen and examined; abdomen remains distended and draining clear fluid. Denies nausea/vomiting, denies fever/chills. Objective Vitals Vital Signs Date Time Temp Pulse Resp B/P Pulse Ox O2 Delivery O2 Flow Rate FiO2 12/09/16 12:00 97.6 57 17 80/42 95 12/09/16 08:00 Room Air 12/09/16 08:00 64 12/09/16 08:00 97.2 58 16 85/50 96 12/09/16 04:00 97.4 63 20 74/42 96 12/09/16 00:00 97.3 58 20 82/45 98 12/08/16 20:00 97.8 57 20 85/51 95 12/08/16 20:00 Room Air 12/08/16 19:59 55 12/08/16 18:40 97 Room Air 12/08/16 16:00 64 12/08/16 16:00 98.1 83 18 86/45 97 I/O 12/08/16 12/08/16 12/08/16 12/09/16 12/09/16 12/09/16 07:00 15:00 23:00 07:00 15:00 23:00 Intake Total 360 ml 280 ml 280 ml Output Total 850 ml Balance -850 ml 360 ml 280 ml 280 ml Intake Oral 360 ml 280 ml 280 ml Output Urine Total 850 ml # Voids 1 2 2 # Bowel Movements 0 0 0 Result Diagram: 12/09/1670612/09/16706 Objective Remarks GENERAL: NAD SKIN: Warm and dry. HEAD: Normocephalic. EYES: No scleral icterus. No injection or drainage. NECK: Supple, trachea midline. No JVD or lymphadenopathy. CARDIOVASCULAR: Regular rate and rhythm with II/ APRIL RESPIRATORY: Breath sounds equal bilaterally. No accessory muscle use. GASTROINTESTINAL: Abdomen soft, non-tender, distended. +BS. Dressing soaked in clear fluid. MUSCULOSKELETAL: No cyanosis, or edema. BACK: Nontender without obvious deformity. No CVA tenderness. A/P Problem List: (1) Hepatic encephalopathy ICD Code: K72.90 Status: Acute (2) Liver disease ICD Code: K76.9 Status: Acute Assessment and Plan 56 years Grade 3 hepatic encephalopathy-Resolved Depression Diabetic Peripheral neuropathy Continue rifaximin 550 mg by mouth twice a day. Continue lactulose 30 g by mouth twice a day. Continue to Hold sedatives for now including Benadryl and Flexeril 5 mg by mouth 3 times a day Palliative care consultation Acute Renal Failure Cr markedly increased from yesterday at 2.37 Concern for hepatorenal syndrome Nephrology consulted, appreciate their assistance Lactic acidemia-Resolved Autoimmune hepatopathy Cirrhosis Ambar Summers C, MELD 26 Splenomegaly Portal hypertension s/p Paracentesis 12/05/16 with 12L fluid out Continue propranolol/Lasix/ PPI/Lactulose/Xifaxan Hold spironolactone due to hyperkalemia Await ALKM-1, ALC-1,IgG Pending. Hepatitis panel negative, Appreciate input from GI and s/p EGD with varices banding x2 on 12/07/16 Plan for liver biopsy when ascites improved Hyponatremia Hyperkalemia Continue to hold spironolactone Continue Lasix 40 mg by mouth twice a day. UTI Received IV Cipro in emergency department. Switch to Cipro 500 mg by mouth every 12H, urine culture positive for Staph aureus, sensitive to Cipro Yeast infection Apply nystatin cream to the intertriginous regions in groin. Chronic thrombocytopenia secondary to cirrhosis Mild Coagulopathy secondary to cirrhosis Monitor CBC Leukocytosis Afebrile/asymptomatic Continue Cipro Continue to monitor Diabetes mellitus Hold metformin. Low-dose insulin sliding scale at bedside glucose every 6 hours PROPH: Hold pharmacologic DVT prophylaxis pending paracentesis. SCDs for DVT prophylaxis. Protonix 40 month grams IV daily for stress ulcer prophylaxis. Patient seen and examined. Case reviewed and discussed with the resident. Agree with plan of care as discussed with me and documented in the resident note . Diann Linda MD R3 Dec 09, 2016 13:31 Greg Paul MD Dec 09, 2016 15:49
[2016-12-09 16:00] VITALS: BP 112/68; PULSE 98; RESP 17; TEMP 98.4; O2SAT 96
[2016-12-09] MEDS ORDERED: SPIRONOLACTONE 100 MG TAB PO SCH (18:00)
--- NOTE | 2016-12-09 18:05 | PD.CONS ---
HPI Consult Requested By Reason for Consult Acute renal insufficiency. 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 Patient admitted with altered mental status. Serum creatinine level noted to have been 0.73 December to subsequently deteriorating today to a level of 2.37 with an estimated GFR of only 21. Serum sodium level low day of consultation at 124. Patient did receive IV contrast with a CT dated December 05. There is also noted that she was on metformin as an outpatient. On questioning patient indicated loose stool related to lactulose. Review of Systems ROS Limitations: Altered Mental Status, Poor Historian Constitutional: COMPLAINS OF: Fatigue Cardiovascular: COMPLAINS OF: Lower Extremity Edema, DENIES: Chest pain, Palpitations, Syncope, Dyspnea on Exertion, PND, Orthopnea, Claudication Gastrointestinal: COMPLAINS OF: Diarrhea, DENIES: Abdominal pain, Black stools , Bloody stools, Constipation, Nausea, Vomiting, Difficulty Swallowing, Anorexia Past Family Social History Allergies: Coded Allergies: Augmentin (Verified Allergy, Severe, 11/21/16) Tylox (Verified Allergy, Severe, 11/21/16) Lisinopril (Verified Adverse Reaction, Severe, 11/21/16) ANGIOEDEMA Tylenol (Verified Adverse Reaction, Intermediate, CIRRHOSIS, 11/21/16) Advil (Verified Adverse Reaction, Mild, 11/21/16) Past Medical History Autoimmune related cirrhosis by history. Diabetes mellitus History positive JOSH per records. Need for paracentesis weekly. Chronic hyponatremia. Past Surgical History Cholecystectomy Hysterectomy. Reported Medications Reported Meds & Active Scripts Active Enulose Liq (Lactulose (Encephalopathy) Liq) 10 Gm/15 Ml Soln 30 Ml PO BID 30 Days Metformin (Metformin HCl) 500 Mg Tab 500 Mg PO BIDPC With meals Spironolactone 100 Mg Tab 100 Mg PO BIDPC Reported Flexeril (Cyclobenzaprine HCl) 5 Mg Tab Unknown Dose PO TID Tramadol (Tramadol HCl) 50 Mg Tab 50 Mg .ROUTE DAILY PRN Alpha Lipoic Acid 300 Mg Tab 300 Mg PO BID Propranolol (Propranolol HCl) 20 Mg Tab 20 Mg PO BID Lasix (Furosemide) 40 Mg Tab 40 Mg PO BID Cinnamon 500 Mg Cap 1,000 Mg PO BID Diphenhydramine (Diphenhydramine HCl) 25 Mg Cap 25 Mg PO TID PRN Effexor (Venlafaxine HCl) 25 Mg Tab 50 Mg PO DAILY Proair Respiclick Inh (Albuterol Sulfate) 90 Mcg/Act Aerp 2 Puff INH Q6H PRN Active Ordered Medications Current Medications IV Flush (NS Flush) 2 ml UNSCH PRN IVF FLUSH AFTER USING IV ACCESS; Start at 21:15; Stop 12/06/16 at 15:38; Status DC Lactulose 30 ml 30 ml ONCE ONCE RECTAL Last administered on 12/05/16 02:42; Start 12/04/16 at 22:30; Stop 12/04/16 at 22:31; Status DC Sodium Chloride (NS 1000 ml Inj) 1,000 ml @ 999 mls/hr BOLUS ONCE IV Last administered on 12/04/16 23:07; Start 12/04/16 at 22:30; Stop 12/04/16 at 23:30; Status DC Calcium Gluconate (Calcium Gluconate Inj) 1 gm ONCE ONCE SLOW IVP Last administered on 12/04/16 23:07; Start 12/04/16 at 22:30; Stop 12/04/16 at 22:31; Status DC Insulin Human Regular (NovoLIN R INJ) 10 units ONCE ONCE IV PUSH Last administered on 12/04/16 23:10; Start 12/04/16 at 22:45; Stop 12/04/16 at 22:46; Status DC Dextrose (D50w (Vial) Inj) 50 ml ONCE ONCE IV PUSH Last administered on 23:07; Start 12/04/16 at 22:30; Stop 12/04/16 at 22:31; Status DC Albuterol Sulfate (Albuterol Concentrated Neb) 10 mg ONCE ONCE INH Last administered on 12/04/16 23:42; Start 12/04/16 at 22:30; Stop 12/04/16 at 22:31; Status DC Sodium Polystyrene Sulfonate 15 gm 15 gm ONCE ONCE PO ; Start 12/04/16 at 22:30 ; Stop 12/04/16 at 22:31; Status DC Sodium Chloride 1,000 ml @ 999 mls/hr BOLUS ONCE IV Last administered on 02:43; Start 12/05/16 at 01:15; Stop 12/05/16 at 02:15; Status DC Sodium Chloride 1,000 ml @ 999 mls/hr BOLUS ONCE IV Last administered on 02:43; Start 12/05/16 at 01:15; Stop 12/05/16 at 02:15; Status DC Ciprofloxacin/ Dextrose (Cipro 400 Mg Premix) 200 ml @ 200 mls/hr ONCE ONCE IV Last administered on 12/05/16 02:42; Start 12/05/16 at 01:15; Stop 12/05/16 at 02:14; Status DC Rifaximin (Xifaxan) 550 mg BID PO Last administered on 12/09/16 10:34; Start at 09:00 Albumin Human 100 gm 100 gm ONCE ONCE IV ; Start 12/05/16 at 07:30; Stop at 07:31; Status DC Ciprofloxacin/ Dextrose (Cipro 400 Mg Premix) 200 ml @ 200 mls/hr Q24H IV Last administered on 12/08/16 00:52; Start 12/06/16 at 01:00; Stop 12/08/16 at 11: 00; Status DC IV Flush (NS Flush) 2 ml UNSCH PRN IV FLUSH FLUSH AFTER USING IV ACCESS; Start 12/05/16 at 07:00 IV Flush (NS Flush) 2 ml BID IV FLUSH Last administered on 12/09/16 10:33; Start 12/05/16 at 09:00 Pantoprazole Sodium (Protonix Inj) 40 mg DAILY IV Last administered on 08:52; Start 12/05/16 at 09:00; Stop 12/08/16 at 09:54; Status DC Ondansetron HCl (Zofran Inj) 4 mg Q6H PRN IV NAUSEA OR VOMITING Last administered on 12/06/16 22:13; Start 12/05/16 at 07:00 Albuterol Sulfate (Albuterol Neb) 2.5 mg Q2HR NEB PRN INH SOB/WHEEZING; Start 12/05/16 at 07:00 Miscellaneous Information 1 Q361D XX ; Start 12/05/16 at 07:00 Chlorhexidine Gluconate (Chlorhexidine 2% Cloth) 3 pack Taper DAILY@04 TOP Last administered on 12/09/16 04:00; Start 12/06/16 at 04:00; Stop 12/02/17 at 03: 59 Chlorhexidine Gluconate (Chlorhexidine 2% Cloth) 3 pack UNSCH PRN TOP HYGIENIC CARE; Start 12/05/16 at 07:00 Nystatin (Mycostatin Cream) 1 applic Q12HR TOPICAL Last administered on 10:34; Start 12/05/16 at 09:00 Furosemide (Lasix) 40 mg BID PO Last administered on 12/09/16 10:34; Start 12/05 at 09:00 Propranolol HCl (Inderal) 20 mg BID PO Last administered on 12/09/16 10:34; Start 12/05/16 at 09:00 Lactulose (Lactulose Liq) 30 ml BID PO Last administered on 12/09/16 10:34; Start 12/05/16 at 09:00 Dextrose (D50w (Vial) Inj) 25 ml UNSCH PRN IV PUSH HYPOGLYCEMIA-SEE COMMENTS; Start 12/05/16 at 07:15 Glucagon (Glucagon Inj) 1 mg UNSCH PRN OTHER HYPOGLYCEMIA-SEE COMMENTS; Start 12/05/16 at 07:15 Insulin Aspart (NovoLOG SUPPLEMENTAL SCALE) 1 ACHS SLIDING SCALE SQ Last administered on 12/09/16 16:39; Start 12/05/16 at 11:00 Tramadol HCl (Ultram) 50 mg Q12H PRN PO PAIN Last administered on 12/05/16 22: 00; Start 12/05/16 at 08:15; Stop 12/06/16 at 09:01; Status DC Iohexol (Omnipaque 350 Inj) 97 ml STK-MED ONCE IV Last administered on 09:09; Start 12/05/16 at 09:09; Stop 12/05/16 at 09:10; Status DC Lidocaine HCl (Xylocaine 1% Inj) 30 ml STK-MED ONCE .ROUTE Last administered on 12/05/16 11:40; Start 12/05/16 at 13:52; Stop 12/05/16 at 13:53; Status DC Fentanyl Citrate (fentaNYL INJ) 50 mcg NOW IV Last administered on 12/06/16 05: 17; Start 12/06/16 at 04:34; Stop 12/06/16 at 05:44; Status DC Tramadol HCl (Ultram) 50 mg Q6H PRN PO PAIN Last administered on 12/09/16 06:26 ; Start 12/06/16 at 09:15 Miscellaneous Information ALL NURSING DEPARTME... UNSCH PRN XX SEE LABEL COMMENTS; Start 12/07/16 at 13:53; Stop 12/08/16 at 13:52; Status DC Propofol (Diprivan 200 Mg/20 ml Inj) 180 mg STK-MED ONCE IV ; Start 12/07/16 at 16:10; Stop 12/07/16 at 16:11; Status DC Ciprofloxacin (Cipro) 500 mg Q12HR PO Last administered on 12/09/16 10:34; Start 12/08/16 at 21:00; Stop 12/10/16 at 22:00 Pantoprazole Sodium (Protonix) 40 mg DAILY PO Last administered on 12/09/16 10: 34; Start 12/09/16 at 09:00 Spironolactone (Aldactone) 100 mg BIDPC PO ; Start 12/09/16 at 18:00; Stop at 18:00; Status DC Family History Noncontributory to current complaint. Social History Noncontributory to current complaint. Physical Exam Vital Signs Vital Signs Date Time Temp Pulse Resp B/P Pulse Ox O2 Delivery O2 Flow Rate FiO2 12/09/16 16:00 98.4 98 17 112/68 96 12/09/16 12:00 97.6 57 17 80/42 95 12/09/16 08:00 Room Air 12/09/16 08:00 64 12/09/16 08:00 97.2 58 16 85/50 96 12/09/16 04:00 97.4 63 20 74/42 96 12/09/16 00:00 97.3 58 20 82/45 98 12/08/16 20:00 97.8 57 20 85/51 95 12/08/16 20:00 Room Air 12/08/16 19:59 55 12/08/16 18:40 97 Room Air Physical Exam GENERAL: Patient appears to be icteric. Not in respiratory distress. SKIN: Warm and dry. HEAD: Normocephalic. EYES: No scleral icterus. No injection or drainage. NECK: Supple, trachea midline. No JVD or lymphadenopathy. CARDIOVASCULAR: Regular rate and rhythm without murmurs, gallops, or rubs. RESPIRATORY: Breath sounds equal bilaterally. No accessory muscle use. GASTROINTESTINAL: Abdomen soft, non-tender, moderately distended. MUSCULOSKELETAL: No cyanosis, or recent edema ankles. BACK: Nontender without obvious deformity. No CVA tenderness. Laboratory Laboratory Tests Test 12/09/16 07:07 White Blood Count 14.7 Red Blood Count 3.52 Hemoglobin 11.9 Hematocrit 34.1 Mean Corpuscular Volume 97.0 Mean Corpuscular Hemoglobin 33.8 Mean Corpuscular Hemoglobin 34.9 Concent Red Cell Distribution Width 16.5 Platelet Count 87 Mean Platelet Volume 8.5 Neutrophils (%) (Auto) 85.5 Lymphocytes (%) (Auto) 3.6 Monocytes (%) (Auto) 9.7 Eosinophils (%) (Auto) 1.1 Basophils (%) (Auto) 0.1 Neutrophils # (Auto) 12.5 Lymphocytes # (Auto) 0.5 Monocytes # (Auto) 1.4 Eosinophils # (Auto) 0.2 Basophils # (Auto) 0.0 CBC Comment AUTO DIFF Differential Comment AUTO DIFF CONFIRMED Platelet Estimate LOW Platelet Morphology Comment NORMAL Acanthocytes 1+ Sodium Level 124 Potassium Level 4.5 Chloride Level 93 Carbon Dioxide Level 17.2 Anion Gap 14 Blood Urea Nitrogen 51 Creatinine 2.37 Estimat Glomerular Filtration 21 Rate Random Glucose 152 Calcium Level 7.8 Total Bilirubin 6.5 Aspartate Amino Transf 66 (AST/SGOT) Alanine Aminotransferase 51 (ALT/SGPT) Alkaline Phosphatase 112 Total Protein 5.1 Albumin 2.6 Date/Time Procedure Status Source Growth 12/05/16 11:50 Gram Stain - Final Complete Fluid Peritoneal Fluid 12/05/16 11:50 Body Fluid Culture - Final Complete Fluid Peritoneal Fluid NO GROWTH IN 72 HRS.--AEROBICALLY OR ... 12/04/16 23:14 Urine Culture - Final Complete Urine Catheterized Urine Staphylococcus Aureus 12/04/16 21:15 Aerobic Blood Culture - Final Complete Blood Peripheral NO GROWTH IN 5 DAYS 12/04/16 21:15 Anaerobic Blood Culture - Final Complete Blood Peripheral NO GROWTH IN 5 DAYS Result Diagram: 12/09/16 0707 12/09/16706 Assessment and Plan Problem List: (1) Acute kidney insufficiency Plan: Development of azotemia is concerning for development of hepatorenal syndrome however need to exclude intravascular volume depletion prior to making diagnosis. IV hydration as ordered with discontinuance of furosemide as well as IV albumin with monitoring of response. Contrast nephrotoxicity may have been contributory although the serum creatinine level appears to have remained relatively stable right after contrast exposure making it a lesser consideration. I have also ordered a spot urine sodium. If the patient's azotemia continues to worsen despite IV fluids and IV albumin then hepatorenal syndrome will be a consideration. If this is the case then I would recommend IV normetanephrine to try and improve the patient's mean arterial pressure by approximately 10 L of mercury which apparently has been beneficial in some patients with hepatorenal syndrome. This will likely require transfer to the ICU. The present however will monitor response to the above-mentioned management changes. Unfortunately if the hepatorenal syndrome does become the primary consideration as a poor prognosis. Medications should be adjusted for the patient's estimated GFR if clinically indicated. Avoid agents with significant potential for nephrotoxicity possible including NSAIDs for analgesia, iodine contrast agents. Gadolinium is contraindicated if the GFR is below 30. (2) Hyponatremia Plan: Very difficult to correct in the setting of advanced cirrhosis. Correction said not to improve prognosis. (3) Cirrhosis (4) Ascites (5) Diabetes mellitus Plan: In view of the patient's history of advanced liver disease as well as predisposition to development of renal insufficiency my opinion is metformin should probably be avoided in this setting in the future. Karina Armando MD Dec 09, 2016 18:04
[2016-12-09] MEDS: ALBUMIN HUMAN 25% 12.5 GM/50 ML BAGP IV SCH (18:34)
[2016-12-09] MEDS: SODIUM CHLOR 0.9% 1000 ML INJ 1,000 ML IV SCH (18:44)
[2016-12-09 20:00] VITALS: BP 83/40; PULSE 54; RESP 22; TEMP 98.2; O2SAT 98
[2016-12-09] MEDS: ONDANSETRON HCL 4 MG/2 ML VIAL IV PRN (20:14)
[2016-12-10] VITALS (10 sets, daily range): BP systolic 82–97; BP diastolic 43–52; PULSE 53–66; RESP 13–20; TEMP 97.2–98; O2SAT 95–100
[2016-12-10] MEDS: ALBUMIN HUMAN 25% 12.5 GM/50 ML BAGP IV SCH ×4 (00:12→17:16)
[2016-12-10 03:51] LABS: IGG SUBCLASSES 4 12.7 mg/dL (4-86)
[2016-12-10] MEDS: CHLORHEXIDINE GLUCONATE 2 % 1 PACK (2 CLOTHS) TOP SCH (04:00)
[2016-12-10] MEDS: ONDANSETRON HCL 4 MG/2 ML VIAL IV PRN (05:24)
[2016-12-10] MEDS: SODIUM CHLOR 0.9% 1000 ML INJ 1,000 ML IV SCH ×4 (05:25→21:14)
[2016-12-10 06:10] LABS: AUTOMATED NEUTROPHIL # 12.6 TH/MM3 (1.8-7.7); BASOPHIL # 0.1 TH/MM3 (0-0.2); BASOPHIL % 0.4 % (0.0-2.0); EOSINOPHIL % 0.3 % (0.0-4.0); HEMATOCRIT 31.2 % (35.0-46.0); LYMPH % 2.6 % (9.0-44.0); LYMPHOCYTE # 0.4 TH/MM3 (1.0-4.8); MEAN CORPUSCULAR HEMOGLOBIN 34.1 PG (27.0-34.0); MEAN CORPUSCULAR HGB CONC 35.2 % (32.0-36.0); MONO % 9.7 % (0.0-8.0); PLATELET COUNT 77 TH/MM3 (150-450); RED BLOOD COUNT 3.22 MIL/MM3 (4.00-5.30); RED CELL DISTRIBUTION WIDTH 16.2 % (11.6-17.2); WHITE BLOOD COUNT 14.5 TH/MM3 (4.0-11.0)
[2016-12-10 06:33] LABS: ALKALINE PHOSPHATASE 105 U/L (45-117); ALT (GPT) 44 U/L (10-53); ANION GAP 13 MEQ/L (5-15); AST (GOT) 58 U/L (15-37); BICARBONATE 16.5 MEQ/L (21.0-32.0); BLOOD UREA NITROGEN 62 MG/DL (7-18); CHLORIDE 95 MEQ/L (98-107); GLOMERULAR FILTRATION RATE 18 ML/MIN (>89); POTASSIUM 4.6 MEQ/L (3.5-5.1)
[2016-12-10 06:38] LABS: SODIUM (NA) 124 MEQ/L (136-145)
[2016-12-10 07:31] LABS: HEMO FLAGS AUTO DIFF
[2016-12-10 07:33] LABS: PLATELET ESTIMATE SMEAR LOW (NORMAL); PLATELET MORPHOLOGY NORMAL (NORMAL); SCAN/DIFF AUTO DIFF CONFIRMED
[2016-12-10] MEDS: LACTULOSE SYRUP 20 GM/30 ML CUP PO SCH ×2 (09:00→21:13)
[2016-12-10] MEDS: SODIUM CHLORIDE 0.9% FLUSH 5 ML FLUSH IV FLUSH SCH ×2 (09:00→21:13)
[2016-12-10] MEDS: PROPRANOLOL HCL 20 MG TAB PO SCH (09:00)
--- NOTE | 2016-12-10 09:00 | HHI.GIFU ---
Subjective Remarks Resting in bed in no distress. NPO for liver biopsy today. Mild abdominal pressure from ascites. (Merary Hernandez) Objective Vitals I&O Vital Signs Date Time Temp Pulse Resp B/P Pulse Ox O2 Delivery O2 Flow Rate FiO2 12/10/16 08:12 Room Air 12/10/16 04:00 97.3 59 20 84/46 96 12/10/16 00:00 97.2 56 20 84/49 96 12/09/16 20:00 98.2 54 22 83/40 98 12/09/16 20:00 Room Air 12/09/16 16:00 98.4 98 17 112/68 96 12/09/16 12:00 97.6 57 17 80/42 95 I/O 12/09/16 12/09/16 12/09/16 12/10/16 12/10/16 12/10/16 07:00 15:00 23:00 07:00 15:00 23:00 Intake Total 280 ml 480 ml 240 ml Output Total 2 ml Balance 280 ml 480 ml 238 ml Intake Oral 280 ml 480 ml 240 ml Output Urine Total 2 ml # Voids 2 0 1 # Bowel Movements 0 0 0 Laboratory Laboratory Tests Test 12/10/16 04:30 White Blood Count 14.5 Red Blood Count 3.22 Hemoglobin 11.0 Hematocrit 31.2 Mean Corpuscular Volume 97.0 Mean Corpuscular Hemoglobin 34.1 Mean Corpuscular Hemoglobin 35.2 Concent Red Cell Distribution Width 16.2 Platelet Count 77 Mean Platelet Volume 8.7 Neutrophils (%) (Auto) 87.0 Lymphocytes (%) (Auto) 2.6 Monocytes (%) (Auto) 9.7 Eosinophils (%) (Auto) 0.3 Basophils (%) (Auto) 0.4 Neutrophils # (Auto) 12.6 Lymphocytes # (Auto) 0.4 Monocytes # (Auto) 1.4 Eosinophils # (Auto) 0.0 Basophils # (Auto) 0.1 CBC Comment AUTO DIFF Differential Comment AUTO DIFF CONFIRMED Platelet Estimate LOW Platelet Morphology Comment NORMAL Sodium Level 124 Potassium Level 4.6 Chloride Level 95 Carbon Dioxide Level 16.5 Anion Gap 13 Blood Urea Nitrogen 62 Creatinine 2.76 Estimat Glomerular Filtration 18 Rate Random Glucose 143 Calcium Level 7.6 Total Bilirubin 7.0 Aspartate Amino Transf 58 (AST/SGOT) Alanine Aminotransferase 44 (ALT/SGPT) Alkaline Phosphatase 105 Total Protein 5.1 Albumin 2.7 Date/Time Procedure Status Source Growth 12/05/16 11:50 Gram Stain - Final Complete Fluid Peritoneal Fluid 12/05/16 11:50 Body Fluid Culture - Final Complete Fluid Peritoneal Fluid NO GROWTH IN 72 HRS.--AEROBICALLY OR ... Imaging Last Impressions Head CT 12/05/162108 Signed Impressions: Service Date/Time: Monday, December 05, 2016 08:59 - CONCLUSION: Normal examination for a patient of this age. No significant change has occurred. Bryan Mahmood MD Cyst Biopsy Asp-Paracentesis US 12/05/16 0000 Signed Impressions: Service Date/Time: Monday, December 05, 2016 11:26 - CONCLUSION: Uncomplicated ultrasound guided paracentesis. Patient received albumin. Nitin Cook MD FACR Abdomen/Pelvis CT 12/05/16 0000 Signed Impressions: Service Date/Time: Monday, December 05, 2016 09:03 - CONCLUSION: 1. Liver cirrhosis with moderate ascites, splenomegaly and varices similar in appearance to prior CT examinations. 2. Stable right adnexal mass measuring about 7.7 cm compared with September 2015. 3. Downs catheter in bladder. No bowel obstruction. No gastric distention. Bryan Mahmood MD Chest X-Ray 12/04/162108 Signed Impressions: Service Date/Time: Sunday, December 04, 2016 21:09 - CONCLUSION: No definite infiltrate Toñito Fulton MD Physical Exam HEENT: Normocephalic; atraumatic; jaundice. CHEST: CTA, diminished CARDIAC: RRR ABDOMEN: Soft,mod ascites. nontender; hepatosplenomegaly; bowel sounds are present in all four quadrants. EXTREMITIES: BLE edema more so in LLE. SKIN: Multiple ecchymotic area [employer]ACH[employer]ES: A/Ox3 (Merary Hernandez) Assessment and Plan Plan ASSESSMENT: - Elevated LFTs with liver cirrhosis. MELD 16. Unclear etiology for liver cirrhosis. Dx in 2013 and was told at this time this was related to fatty liver disease. She was recently told by her PCP/[employer] that she may have autoimmune hepatitis based on a positive JOSH. She was seen by Dr. Escalante in 2014 and underwent liver workup at that time and this revealed JOSH positive, AMA < 20.0, ASMA negative, Celiac panel negative, Iron saturation 26.1%, AFP 5.4, Hepatitis panel negative. She continues to have JOSH positive with titer 1:160. She seems to have decompensation with recurrent ascites and worsening hepatic encephalopathy since August of this year. Abdomen/ Pelvis CT (12/05/16)----> 1. Liver cirrhosis with moderate ascites, splenomegaly and varices similar in appearance to prior CT examinations. 2. Stable right adnexal mass measuring about 7.7 cm compared with September 2015. 3. Downs catheter in bladder. No bowel obstruction. No gastric distention. This could be autoimmune hepatitis, although her was ASMA negative. ALKM-1, ALC-1, IgG pending, to exclude type II autoimmune hepatitis. This could also be decompensation from her known liver disease- possibly related to fatty liver dz and/or medication induced. Spoke to Dr. Alonso Cook re: possible liver disease and he does not feel that he can safely obtain biopsy with her large volume ascites and recommends considering this once her ascites is better controlled. ? transjugular liver biopsy if ascites not better soon. Needs outpatient followup, referral to tertiary for liver transplant evaluation as outpatient. LFT 7.0, AST 58, ALT 44, Alk Phosph 105. Invasive radiology consulted for transjugular liver biopsy. ALKM-1 < 20.0. Total IgG 1140. - Recurrent ascites. S/P US guided paracentesis with removal of 12,300cc of fluid. Cx negative. Lasix, Albumin - AMS, Hepatic encephalopathy. Xifaxan, Lactulose. Improved. Now a/ox3 - GERD. PPI. Stable. EGD during this hospitalization. - N/V since Loi. Stable. PPI. - Coagulopathy, Thrombocytopenia. - UTI, Cx with immature growth. Cipro. - Hyponatremia, Hyperkalemia. per primary - Portal hypertension, hx esophageal varices. EGD with band ligation (12/07/16)-- ----> two large varices with nipple sign (high potential of bleeding) Propranolol. PLAN: - 2 gram sodium diet - IR consulted for transjugular liver biopsy this week - Cont. Lasix - Cont. Albumin - Consider adding spironolactone if okay primary - Cont. PPI - Cont. Propranolol - Cont. Lactulose - Cont. Xifaxan - Await ALC-1 - Supportive care - Will need outpatient follow up and referral to tertiary for liver transplant evaluation as outpatient - Further recommendations to follow based on results of above - Pt seen and examined by Dr. Britton and myself and this note is written on his behalf (Merary Hernandez) Physician Comments Patient seen and examined Agree with above Continue with current supportive care Monitor labs Recommended nephrology evaluation for acute renal failure (Romario Britton MD) Merary Hernandez Dec 10, 2016 09:00 Romario Britton MD Dec 10, 2016 22:37
[2016-12-10] MEDS: RIFAXIMIN 550 MG TAB PO SCH ×2 (09:18→21:13)
[2016-12-10] MEDS: PANTOPRAZOLE SOD 40 MG DELAYED RELEASE TAB PO SCH (09:18)
[2016-12-10] MEDS: CIPROFLOXACIN 500 MG TAB PO SCH ×2 (09:18→21:13)
[2016-12-10] MEDS: NYSTATIN 100,000 UNIT/GM CREAM 15 GM TOPICAL SCH ×2 (09:19→21:00)
--- NOTE | 2016-12-10 09:55 | HHI.PR ---
Subjective Remarks Follow up for hepatic encephalopathy, probable hepatorenal syndrome type 1. Ms. Campbell is doing well. She does complain of some dizziness. Her BP has been low today. Fluid was started but BP remains low. Denies any CP, SOB, fever, chills. Objective Vitals Vital Signs Date Time Temp Pulse Resp B/P Pulse Ox O2 Delivery O2 Flow Rate FiO2 12/10/16 08:12 Room Air 12/10/16 08:05 97.3 55 18 83/48 95 12/10/16 04:00 97.3 59 20 84/46 96 12/10/16 00:00 97.2 56 20 84/49 96 12/09/16 20:00 98.2 54 22 83/40 98 12/09/16 20:00 Room Air 12/09/16 16:00 98.4 98 17 112/68 96 12/09/16 12:00 97.6 57 17 80/42 95 I/O 12/09/16 12/09/16 12/09/16 12/10/16 12/10/16 12/10/16 07:00 15:00 23:00 07:00 15:00 23:00 Intake Total 280 ml 480 ml 240 ml Output Total 2 ml Balance 280 ml 480 ml 238 ml Intake Oral 280 ml 480 ml 240 ml Output Urine Total 2 ml # Voids 2 0 1 # Bowel Movements 0 0 0 Result Diagram: 12/10/16 0430 12/10/16 0430 Imaging Last Impressions Chest X-Ray 12/10/16 1341 Signed Impressions: Service Date/Time: Saturday, December 10, 2016 14:07 - CONCLUSION: 1. Left internal jugular central line has its tip in the superior vena cava. There is no pneumothorax. Sean Villagran MD Head CT 12/05/162108 Signed Impressions: Service Date/Time: Monday, December 05, 2016 08:59 - CONCLUSION: Normal examination for a patient of this age. No significant change has occurred. Bryan Mahmood MD Cyst Biopsy Asp-Paracentesis US 12/05/16 0000 Signed Impressions: Service Date/Time: Monday, December 05, 2016 11:26 - CONCLUSION: Uncomplicated ultrasound guided paracentesis. Patient received albumin. Nitin Cook MD FACR Abdomen/Pelvis CT 12/05/16 0000 Signed Impressions: Service Date/Time: Monday, December 05, 2016 09:03 - CONCLUSION: 1. Liver cirrhosis with moderate ascites, splenomegaly and varices similar in appearance to prior CT examinations. 2. Stable right adnexal mass measuring about 7.7 cm compared with September 2015. 3. Downs catheter in bladder. No bowel obstruction. No gastric distention. Bryan Mahmood MD Objective Remarks GENERAL: NAD SKIN: Warm and dry. HEAD: Normocephalic. EYES: No scleral icterus. No injection or drainage. NECK: Supple, trachea midline. No JVD or lymphadenopathy. CARDIOVASCULAR: Regular rate and rhythm with II/ APRIL RESPIRATORY: Breath sounds equal bilaterally. No accessory muscle use. GASTROINTESTINAL: Abdomen soft, non-tender, distended. +BS. Dressing soaked in clear fluid. MUSCULOSKELETAL: No cyanosis, or edema. BACK: Nontender without obvious deformity. No CVA tenderness. Procedures 12/07/2016 Upper gastrointestinal endoscopy with esophageal varices banding. A/P Problem List: (1) Hepatic encephalopathy ICD Code: K72.90 Status: Acute (2) Liver disease ICD Code: K76.9 Status: Acute (3) Hepatorenal syndrome ICD Code: K76.7 Status: Acute Assessment and Plan Patient was hypotensive and we started patient on Fluid. However, Ms. Campbell is currently on IV fluid but blood pressure has not improved much. I discussed with Dr. Armando ([employer]lectric [employer] Line [employer]r) who is concerned regarding hepatorenal syndrome type 1 which carries a much worse prognosis than type 2. At this point, Dr. Armando recommended Norepinephrine and continue albumin for HRS. Also due to low blood pressure, patient requires critical care attention. We will transfer patient to the ICU, I placed order for Norepinephrine drip. I discussed with RN in the ICU. Also discussed with ICU attending and transferring care of patient to the ICU team. Dr. Hsieh will evaluate patient and manage from this point on. Patient will likely need a central line for fluid and pressors. Other current issues are following: Grade 3 hepatic encephalopathy-Resolved Depression Diabetic Peripheral neuropathy Continue rifaximin 550 mg by mouth twice a day. Continue lactulose 30 g by mouth twice a day. Continue to Hold sedatives for now including Benadryl and Flexeril 5 mg by mouth 3 times a day Palliative care consultation Acute Renal Failure Cr markedly increased from yesterday at 2.37 Concern for hepatorenal syndrome Nephrology consulted, appreciate their assistance Lactic acidemia-Resolved Autoimmune hepatopathy Cirrhosis Ambar Summers C, MELD now 32. Splenomegaly Portal hypertension s/p Paracentesis 12/05/16 with 12L fluid out Continue propranolol/Lasix/ PPI/Lactulose/Xifaxan Hold spironolactone due to hyperkalemia Await ALKM-1, ALC-1,IgG Pending. Hepatitis panel negative, Appreciate input from GI and s/p EGD with varices banding x2 on 12/07/16 Plan for liver biopsy when ascites improved Hyponatremia Hyperkalemia Continue to hold spironolactone Continue Lasix 40 mg by mouth twice a day. UTI Received IV Cipro in emergency department. Switch to Cipro 500 mg by mouth every 12H, urine culture positive for Staph aureus, sensitive to Cipro Yeast infection Apply nystatin cream to the intertriginous regions in groin. Chronic thrombocytopenia secondary to cirrhosis Mild Coagulopathy secondary to cirrhosis Monitor CBC Leukocytosis Afebrile/asymptomatic Continue Cipro Continue to monitor Diabetes mellitus Hold metformin. Low-dose insulin sliding scale at bedside glucose every 6 hours PROPH: Hold pharmacologic DVT prophylaxis pending paracentesis. SCDs for DVT prophylaxis. Protonix 40 month grams IV daily for stress ulcer prophylaxis. Jorge Paige DO Dec 10, 2016 09:55
--- NOTE | 2016-12-10 10:04 | HHI.NPPN ---
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 Patient admitted with altered mental status. Serum creatinine level noted to have been 0.73 December to subsequently deteriorating today to a level of 2.37 with an estimated GFR of only 21. Serum sodium level low day of consultation at 124. Patient did receive IV contrast with a CT dated December 05. There is also noted that she was on metformin as an outpatient. On questioning patient indicated loose stool related to lactulose. Interval History The patient says she is feeling OK. Endorses abdominal pressure today. ( Akanksha Wan) Review of Systems Gastrointestinal Gastrointestinal: Abdominal Pain (Akanksha Wan) Objective Data Data 12/09/16 12/10/16 19:00 07:00 Intake Total 480 ml 240 ml Output Total 2 ml Balance 480 ml 238 ml Intake Oral 480 ml 240 ml Output Urine Total 2 ml # Voids 0 1 # Bowel Movements 0 0 Vital Signs Date Time Temp Pulse Resp B/P Pulse Ox O2 Delivery O2 Flow Rate FiO2 12/10/16 08:12 Room Air 12/10/16 08:05 97.3 55 18 83/48 95 12/10/16 04:00 97.3 59 20 84/46 96 12/10/16 00:00 97.2 56 20 84/49 96 12/09/16 20:00 98.2 54 22 83/40 98 12/09/16 20:00 Room Air 12/09/16 16:00 98.4 98 17 112/68 96 12/09/16 12:00 97.6 57 17 80/42 95 (Akanksha Wan) -: 12/10/16 0430 12/10/16 0430 Imaging Last Impressions Head CT 12/05/162108 Signed Impressions: Service Date/Time: Monday, December 05, 2016 08:59 - CONCLUSION: Normal examination for a patient of this age. No significant change has occurred. Bryan Mahmood MD Cyst Biopsy Asp-Paracentesis US 12/05/16 0000 Signed Impressions: Service Date/Time: Monday, December 05, 2016 11:26 - CONCLUSION: Uncomplicated ultrasound guided paracentesis. Patient received albumin. Nitin Cook MD FACR Abdomen/Pelvis CT 12/05/16 0000 Signed Impressions: Service Date/Time: Monday, December 05, 2016 09:03 - CONCLUSION: 1. Liver cirrhosis with moderate ascites, splenomegaly and varices similar in appearance to prior CT examinations. 2. Stable right adnexal mass measuring about 7.7 cm compared with September 2015. 3. Downs catheter in bladder. No bowel obstruction. No gastric distention. Bryan Mahmood MD Chest X-Ray 12/04/16 3643 Signed Impressions: Service Date/Time: Sunday, December 04, 2016 21:09 - CONCLUSION: No definite infiltrate Toñito Fulton MD Medication Review Current Medications Medications (Trade) Dose Ordered Sig/Pam Route Start Time Stop Time Status Last Admin (Xifaxan) 550 mg BID PO 12/05/16 09:00 12/10/16 09:18 (NS Flush) 2 ml UNSCH PRN IV FLUSH 12/05/16 07:00 (NS Flush) 2 ml BID IV FLUSH 12/05/16 09:00 12/09/16 20:15 (Zofran Inj) 4 mg Q6H PRN IV 12/05/16 07:00 12/10/16 05:24 Miscellaneous Information 1 Q361D XX 12/05/16 07:00 (Chlorhexidine 2% Cloth) 3 pack Taper DAILY@04 TOP 12/06/16 04:00 12/02/17 03:59 12/09/16 04:00 (Chlorhexidine 2% Cloth) 3 pack UNSCH PRN TOP 12/05/16 07:00 (Mycostatin Cream) 1 applic Q12HR TOPICAL 12/05/16 09:00 12/10/16 09:19 (Inderal) 20 mg BID PO 12/05/16 09:00 12/09/16 20:15 (Lactulose Liq) 30 ml BID PO 12/05/16 09:00 12/09/16 20:15 (D50w (Vial) Inj) 25 ml UNSCH PRN IV PUSH 12/05/16 07:15 (Glucagon Inj) 1 mg UNSCH PRN OTHER 12/05/16 07:15 (Ultram) 50 mg Q6H PRN PO 12/06/16 09:15 12/09/16 06:26 (Cipro) 500 mg Q12HR PO 12/08/16 21:00 12/10/16 22:00 12/10/16 09:18 (Protonix) 40 mg DAILY PO 12/09/16 09:00 12/10/16 09:18 Albumin Human 12.5 gm 12.5 gm Q6HR IV 12/09/16 18:00 12/10/16 05:23 (NS 1000 ml Inj) 1,000 ml @ 150 mls/hr Q6H40M IV 12/10/16 09:00 12/10/16 09:23 (Akanksha Wan) Physical Exam General Appearance: No Acute Distress (Akanksha Wan) Neck Neck Exam: Neck Supple, Trachea Midline (Akanksha Wan) Pulmonary Resp Exam: Clear Bilaterally, Breath Sounds Equal, Diminished Breath Sounds ( Akanksha Wan) Cardiology CV Exam: Regular, Normal Sinus Rhythm (Akanksha Wan) Gastrointestinal/Abdomen GI Exam: Distended (Akanksha Wan) Integumentary Skin Exam: Warm (Akanksha Wan) Extremeties Extremeties Remarks No peripheral edema, but does have edema in abdomen as well as ascites (Akanksha Wan) Neurologic Neuro Exam: Alert, Awake, Oriented (Akanksha Wan) Psychiatric Psych Exam: Appropriate Responses (Akanksha Wan) Assessment/Plan Problem List: (1) Acute kidney insufficiency Plan: Development of azotemia is concerning for development of hepatorenal syndrome however need to exclude intravascular volume depletion prior to making diagnosis. Spot urine Na pending. SCr unfortunately did not improve with IV hydration making hepatorenal syndrome a likely diagnosis which carries a poor prognosis. I would recommend IV norepinephrine to try and improve the patient's mean arterial pressure by approximately 10 mmHg which apparently has been beneficial in some patients with hepatorenal syndrome. This will likely require transfer to the ICU. Dr. Armando discussed with primary. Medications should be adjusted for the patient's estimated GFR if clinically indicated. Avoid agents with significant potential for nephrotoxicity possible including NSAIDs for analgesia, iodine contrast agents. Gadolinium is contraindicated if the GFR is below 30. (2) Hyponatremia Plan: Very difficult to correct in the setting of advanced cirrhosis. Correction said not to improve prognosis. (3) Cirrhosis Plan: Live bx pending for today (4) Ascites (5) Diabetes mellitus Plan: In view of the patient's history of advanced liver disease as well as predisposition to development of renal insufficiency my opinion is metformin should probably be avoided in this setting in the future. (Akanksha Wan) Plan The exam, history, and the medical decision-making described in the above note were completed with the assistance of the PA-C. I reviewed and agree with the findings presented. (Karina Armando MD) Akanksha Wan Dec 10, 2016 10:04 Karina Armando MD Dec 11, 2016 11:59
[2016-12-10] MEDS: INSULIN ASPART SUPPLEMENTAL SCALE SQ SCH ×3 (11:00→21:00)
[2016-12-10] MEDS ORDERED: TERBUTALINE INJ 1 MG/ML AMP SQ PRN (11:30)
[2016-12-10] MEDS: NOREPINEPHRINE INJ 4 MG in SODIUM CHLOR 0.9% 250 ML INJ 246 ML IV SCH (12:27)
[2016-12-10] MEDS ORDERED: SODIUM CHLORIDE 0.9% FLUSH 5 ML FLUSH IVF PRN (13:45)
--- NOTE | 2016-12-10 13:55 | HHI.CCPN ---
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 She has no h/o EtOH or IVDU. She has been followed by Dr. Gomez as outpatient and previously seen by Dr. Escalante. There has been discussion of referral to transplant center but patient has not always had good followup due to financial constraints. She has recently been approved for SSI. She [place] [facility] [place] to altered mental status. Her sisters are at bedside and state that since about august or september of 2016 that she sleeps 70-80% of the day. However, she is typically coherent when she is awake. She slept all day on 12/04/16 and around 4 pm she got up and was "off balance" and nearly fell in the shower. She was also disoriented and could state that she was in [place] but could not answer any other questions. She was also agitated and cursing, which is not in her nature. She has no reported head trauma. She has been compliant with lactulose 30 bid. Ammonia level is 72. She has tense ascites and has been requiring paracentesis since september of 2015, now requiring weekly paracentesis for the last several months. Family states typically remove ~12 L. Last paracentesis was on 11/30 and 14 L were removed. She is on spironolactone 100 bid and lasix 40 bid. She reportedly has had no fever. She has had chills for "Several months". She reports no abdominal pain outside of the typical discomfort when she has ascites. She vomited on 11/25 and 11/26 NBNB. Sodium 122. potassium 5.5. She received 2 L NS bolus in the ED and treatment for hyperkalemia with kayexalate/calcium/dextrose/insulin. She received lactulose [address] brain and abdomen were ordered but she was uncooperative with the exam. Family at bedside say she is now much improved. She is now oriented x3 and conversant. 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 Meld score is now up to 32. Attempting albumin/ norepinephrine infusion to improve renal function. Sodium is 124. Awake and oriented. Objective Vital Signs Date Time Temp Pulse Resp B/P Pulse Ox O2 Delivery O2 Flow Rate FiO2 12/10/16 11:51 56 20 82/43 12/10/16 08:12 Room Air 12/10/16 08:05 97.3 95 12/07/16 14:12 3 Intake and Output 12/09/16 12/09/16 12/10/16 08:00 16:00 00:00 Intake Total 280 ml 480 ml 120 ml Balance 280 ml 480 ml 120 ml Result Diagram: 12/10/16 0430 12/10/16 0430 Imaging Last Impressions Head CT 12/05/162108 Signed Impressions: Service Date/Time: Monday, December 05, 2016 08:59 - CONCLUSION: Normal examination for a patient of this age. No significant change has occurred. Bryan Mahmood MD Cyst Biopsy Asp-Paracentesis US 12/05/16 0000 Signed Impressions: Service Date/Time: Monday, December 05, 2016 11:26 - CONCLUSION: Uncomplicated ultrasound guided paracentesis. Patient received albumin. Nitin Cook MD FACR Abdomen/Pelvis CT 12/05/16 0000 Signed Impressions: Service Date/Time: Monday, December 05, 2016 09:03 - CONCLUSION: 1. Liver cirrhosis with moderate ascites, splenomegaly and varices similar in appearance to prior CT examinations. 2. Stable right adnexal mass measuring about 7.7 cm compared with September 2015. 3. Downs catheter in bladder. No bowel obstruction. No gastric distention. Bryan Mahmood MD Chest X-Ray 12/04/162108 Signed Impressions: Service Date/Time: Sunday, December 04, 2016 21:09 - CONCLUSION: No definite infiltrate Toñito Fulton MD Objective Remarks GENERAL: 56-year-old female, critically ill and jaundiced patient with protuberant abdomen resting in bed in no acute distress SKIN: Warm and dry. Jaundiced. Multiple telangiectasia over chest. Multiple ecchymoses overlying bilateral upper extremities. HEAD: Atraumatic. Normocephalic. EYES: Pupils equal and round. + Scleral icterus ENT: No nasal bleeding or discharge. Mucous membranes moderately moist and pink. Oropharynx without erythema NECK: Trachea midline. CARDIOVASCULAR: Regular rate and rhythm. S1, S2. No S4. No murmurs rubs or gallops. RESPIRATORY: Clear to auscultation. Breath sounds diminished bibasilar. On RA. GASTROINTESTINAL: Abdomen slightly protuberant, nontender.. Prior to gestation caput medusae MUSCULOSKELETAL: Extremities 1+ pitting bipedal edema. NEUROLOGICAL: Awake, alert, oriented person place and time. Strength equal symmetric bilaterally. Normal sensation. Urinary Catheter: No Assessment to: Continue Vascular Central Line Catheter: Yes Assessment to: Continue Date of Insertion: Dec 10, 2016 Line: Central Venous Catheter Side: Left Location: Internal, Jugular A/P Assessment and Plan NEURO/Psych: Depression Mild diabetic neuropathy Start rifaximin 550 mg by mouth twice a day. Continue lactulose 30 g by mouth twice a day. Patient is on Effexor 50 mg by mouth daily at home. This has been held Patient is on Ultram 50 mg every 8 hours as needed for pain. This has currently being held Hold sedatives for now including Benadryl and Flexeril 5 mg by mouth [address] brain 12/05 revealed no acute findings Avoid hepatotoxic drugs with Child's class C liver disease MELD score currently 32 RESP: Tobaccoism Nasal cannula to maintain saturations greater than equal to 92% Incentive spirometry while awake Follow-up on chest x-ray post central line insertion On albuterol every 6 hours for history of tobaccoism. Cessation encouraged CV: Hypotension - shock multifactorial Monitor hemodynamics. - We'll check CVP and repeat lactate to better assess intravascular volume status/perfusion Currently requiring norepinephrine drip to increase renal perfusion with albumin drip for a wrist type I. Hold propranolol 20 mg by mouth twice a day in light of hypotension/vasopressor usage Holding diuretics currently Lasix 40 twice a day and spironolactone 100 mg twice a day Cortisol level was 12/low in setting of hypotension. We'll start stress dose steroids Solu-Cortef 100 every 8. GI: Cirrhosis Ambar Summers C, MELD 32 Splenomegaly Portal hypertension Status post EGD - esophageal varices rate 3 status post banding 2 Elevated lipase on admission. Right adnexal mass 7.7 cm stable since 09/15 [place] to be autoimmune etiology. JOSH positive. ASMA negative. ceruloplasmin negative, ferritin low, [id number] nl. viral hepatitis panel negative. IgG 2 low. Negative ALC -1 not indicative of autoimmune hepatitis. Paracentesis negative for SBP. -12 L. Holding beta blockers at the present time in light of hypotension. Consider octreotide in the interim Repeat lipase/amylase lipids today CT abdomen/pelvis revealed ascites/moderate, cirrhotic liver, splenomegaly, right adnexal mass 7.7 cm. FEN: Hyponatremia Noted TSH 2.9. Cortisol was 12.1. Uric acid currently pending. Serum/urine osm and urine sodium pending Currently on normal saline at 150 cc an hour Hold spironolactone for now due to hyperkalemia Holding Lasix 40 mg by mouth twice a day in light of hypotension RENAL: Possible HRS type I Acute kidney injury Currently on albumin infusion 12.5 g IV every 6 hours along with norepinephrine to maintain MAP around 70 Follow-up creatinine in a.m. for results. Very poor prognosis ID: UTI Fara cruris Received Cipro since admission emergency department. Continue at 500 mg by mouth twice a day SBP treatment and prophylaxis. Follow-up ascitic fluid cell counts Nystatin powder twice a day affected areas HEME: Chronic thrombocytopenia secondary to cirrhosis Mild Coagulopathy secondary to cirrhosis Leukocytosis Normocytic anemia Monitor CBC/coags daily. Current coags pending on fibrinogen ENDO: Diabetes mellitus Low-dose insulin sliding scale at bedside glucose every 6 hours ACCESS: Left IJ CVL day #1 Prophylaxis - GI - Protonix - DVT - SCDs/pharmacological prophylaxis on hold for possible liver biopsy Critical Care: The total critical care time was 45 minutes. Time to perform other separately billable procedures was not included in the critical care time. Tony Hsieh MD Dec 10, 2016 13:55
[2016-12-10] MEDS: HYDROCORTISONE SOD SUCCINATE 100 MG VIAL IV PUSH SCH ×2 (14:13→21:13)
--- NOTE | 2016-12-10 14:40 | RADRPT ---
EXAM DATE/TIME: 12/10/2016 14:07 [facility] COMPARISON: CHEST SINGLE AP, December 04, 2016, 21:09. INDICATIONS: Post central line placement MEDICAL HISTORY: Altered mental status SURGICAL HISTORY: None. ENCOUNTER: Subsequent ACUITY: 1 day PAIN SCORE: 0/10 LOCATION: Bilateral chest FINDINGS: A left internal jugular central line has been placed and has its tip in the superior vena cava. Ther e is no pneumothorax. The heart is stable. The pulmonary vascular pattern is normal. CONCLUSION: 1. Left internal jugular central line has its tip in the superior vena cava. There is no pneumothor ax. Sean Villagran MD on December 10, 2016 at 14:18 Board Certified Radiologist. This report was verified electronically.
[2016-12-10 16:25] LABS: AMYLASE 44 U/L (25-115); ANION GAP 12 MEQ/L (5-15); BICARBONATE 15.6 MEQ/L (21.0-32.0); BLOOD UREA NITROGEN 69 MG/DL (7-18); CHLORIDE 98 MEQ/L (98-107); GLOMERULAR FILTRATION RATE 17 ML/MIN (>89); SODIUM (NA) 126 MEQ/L (136-145); URIC ACID 8.6 MG/DL (2.6-6.0)
[2016-12-10 16:27] LABS: HDL CHOLESTEROL 12.6 MG/DL (40.0-60.0); LDL CHOLESTEROL 28 MG/DL (0-99)
[2016-12-10] MEDS: traMADol HCL 50 MG TAB PO PRN (17:37)
[2016-12-11] VITALS (12 sets, daily range): BP systolic 85–97; BP diastolic 48–55; PULSE 53–60; RESP 11–14; TEMP 97.2–97.8; O2SAT 95–100
[2016-12-11 00:02] LABS: BACTERIA, URINE FEW /hpf; BLOOD, URINE NEG (NEG); GLUCOSE,URINE NEG (NEG); HYALINE CAST, URINE 60 /lpf (RARE); KETONE, URINE NEG (NEG); MUCUS URINE FEW /lpf (OCC); NITRITE,URINE NEG (NEG); PH, URINE 5.5 (5.0-8.5); SQUAMOUS EPITHELIAL CELL URINE 4 /hpf (0-5); URINE COLOR YELLOW (YELLW/STRAW)
[2016-12-11] MEDS: CHLORHEXIDINE GLUCONATE 2 % 1 PACK (2 CLOTHS) TOP SCH (04:00)
[2016-12-11] MEDS: ALBUMIN HUMAN 25% 12.5 GM/50 ML BAGP IV SCH ×5 (05:27→23:17)
[2016-12-11] MEDS: SODIUM CHLOR 0.9% 1000 ML INJ 1,000 ML IV SCH ×3 (05:28→18:20)
[2016-12-11] MEDS: HYDROCORTISONE SOD SUCCINATE 100 MG VIAL IV PUSH SCH ×3 (05:28→21:11)
[2016-12-11 06:05] LABS: AUTOMATED NEUTROPHIL # 9.7 TH/MM3 (1.8-7.7); BASOPHIL % 0.3 % (0.0-2.0); HEMATOCRIT 27.8 % (35.0-46.0); LYMPH % 2.9 % (9.0-44.0); LYMPHOCYTE # 0.3 TH/MM3 (1.0-4.8); MEAN CELL VOLUME 97.8 FL (80.0-100.0); MEAN CORPUSCULAR HGB CONC 34.7 % (32.0-36.0); MONO % 5.2 % (0.0-8.0); NEUT % 91.6 % (16.0-70.0); PLATELET COUNT 64 TH/MM3 (150-450); RED BLOOD COUNT 2.84 MIL/MM3 (4.00-5.30); WHITE BLOOD COUNT 10.6 TH/MM3 (4.0-11.0)
[2016-12-11 06:08] LABS: HEMO FLAGS AUTO DIFF
[2016-12-11 06:31] LABS: BICARBONATE 13.7 MEQ/L (21.0-32.0); POTASSIUM 5.5 MEQ/L (3.5-5.1)
[2016-12-11 06:34] LABS: INTERNATIONAL NORMALIZED RATIO 1.7 RATIO
[2016-12-11 06:35] LABS: MAGNESIUM 2.5 MG/DL (1.5-2.5)
[2016-12-11] MEDS: INSULIN ASPART SUPPLEMENTAL SCALE SQ SCH ×4 (06:47→21:10)
[2016-12-11 07:24] LABS: PLATELET ESTIMATE SMEAR LOW (NORMAL); PLATELET MORPHOLOGY NORMAL (NORMAL); SCAN/DIFF AUTO DIFF CONFIRMED
[2016-12-11 07:27] LABS: BURR CELLS 2+ (NORMAL)
[2016-12-11] MEDS: SODIUM CHLORIDE 0.9% FLUSH 5 ML FLUSH IVF SCH (09:00)
[2016-12-11] MEDS: NYSTATIN 100,000 UNIT/GM CREAM 15 GM TOPICAL SCH ×2 (09:00→21:11)
[2016-12-11] MEDS: SODIUM CHLORIDE 0.9% FLUSH 5 ML FLUSH IV FLUSH SCH ×2 (09:00→21:11)
[2016-12-11] MEDS: LACTULOSE SYRUP 20 GM/30 ML CUP PO SCH ×2 (09:31→21:10)
[2016-12-11] MEDS: PANTOPRAZOLE SOD 40 MG DELAYED RELEASE TAB PO SCH (09:31)
[2016-12-11] MEDS: RIFAXIMIN 550 MG TAB PO SCH ×2 (09:31→21:11)
--- NOTE | 2016-12-11 12:02 | HHI.NPPN ---
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 Patient admitted with altered mental status. Serum creatinine level noted to have been 0.73 December to subsequently deteriorating today to a level of 2.37 with an estimated GFR of only 21. Serum sodium level low day of consultation at 124. Patient did receive IV contrast with a CT dated December 05. There is also noted that she was on metformin as an outpatient. On questioning patient indicated loose stool related to lactulose. Review of Systems Gastrointestinal Gastrointestinal: Abdominal Pain Objective Data Data 12/10/16 12/11/16 19:00 07:00 Intake Total 187 ml 2899 ml Output Total 2 ml Balance 187 ml 2897 ml Intake Oral 360 ml IV Total 187 ml 2539 ml Output Urine Total 2 ml # Bowel Movements 2 Vital Signs Date Time Temp Pulse Resp B/P Pulse Ox O2 Delivery O2 Flow Rate FiO2 12/11/16 10:00 60 12/11/16 08:00 97.8 60 11 94/54 97 12/11/16 08:00 59 12/11/16 06:00 59 12/11/16 04:00 97.2 58 12 92/55 95 12/11/16 04:00 58 12/11/16 02:00 58 12/11/16 00:00 56 12/11/16 00:00 97.6 56 13 85/48 97 12/10/16 20:00 97.3 59 14 93/52 98 12/10/16 20:00 59 12/10/16 18:00 57 12/10/16 16:00 98.0 57 14 97/52 100 12/10/16 16:00 57 12/10/16 14:00 66 12/10/16 12:45 53 12/10/16 12:45 97.7 53 13 83/50 98 -: 12/11/16 0540 12/11/16 0540 Physical Exam General Appearance: No Acute Distress Neck Neck Exam: Neck Supple, Trachea Midline Pulmonary Resp Exam: Clear Bilaterally, Breath Sounds Equal, Diminished Breath Sounds Cardiology CV Exam: Regular, Normal Sinus Rhythm Gastrointestinal/Abdomen GI Exam: Distended Integumentary Skin Exam: Warm Extremeties Extremities Exam: Pitting Edema (one plus lower legs.), Dependent Edema Neurologic Neuro Exam: Alert, Awake, Oriented Psychiatric Psych Exam: Appropriate Responses Assessment/Plan Problem List: (1) Acute kidney insufficiency Plan: Patient's creatinine level about the same level as yesterday. Urine output still poor with oliguria. Urine sodium is below 10 consistent with hepatorenal syndrome which I suspect is etiology of the patient's renal failure. Is a poor prognostic indicator. Hopefully the patient will respond to IV albumin and norepinephrine. If not only definitive treatment would be hepatic transplant if she is a candidate. If the renal function continues to worsen without improvement in her hepatic status I do not believe dialysis would alter a grim prognosis. Medications should be adjusted for the patient's estimated GFR if clinically indicated. Avoid agents with significant potential for nephrotoxicity possible including NSAIDs for analgesia, iodine contrast agents. Gadolinium is contraindicated if the GFR is below 30. (2) Hyponatremia Plan: Very difficult to correct in the setting of advanced cirrhosis. Correction said not to improve prognosis. (3) Cirrhosis Plan: Live bx pending for today (4) Ascites (5) Diabetes mellitus Plan: In view of the patient's history of advanced liver disease as well as predisposition to development of renal insufficiency my opinion is metformin should probably be avoided in this setting in the future. Plan The exam, history, and the medical decision-making described in the above note were completed with the assistance of the SAFIA. I reviewed and agree with the findings presented. Karina Armando MD Dec 11, 2016 12:01
--- NOTE | 2016-12-11 14:11 | HHI.CCPN ---
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 She has no h/o EtOH or IVDU. She has been followed by Dr. Gomez as outpatient and previously seen by Dr. Escalante. There has been discussion of referral to transplant center but patient has not always had good followup due to financial constraints. She has recently been approved for SSI. She [place] [facility] [place] due to altered mental status. Her sisters are at bedside and state that since about august or september of 2016 that she sleeps 70-80% of the day. However, she is typically coherent when she is awake. She slept all day on 12/04/16 and around 4 pm she got up and was "off balance" and nearly fell in the shower. She was also disoriented and could state that she was in [place] but could not answer any other questions. She was also agitated and cursing, which is not in her nature. She has no reported head trauma. She has been compliant with lactulose 30 bid. Ammonia level is 72. She has tense ascites and has been requiring paracentesis since september of 2015, now requiring weekly paracentesis for the last several months. Family states typically remove ~12 L. Last paracentesis was on 11/30 and 14 L were removed. She is on spironolactone 100 bid and lasix 40 bid. She reportedly has had no fever. She has had chills for "Several months". She reports no abdominal pain outside of the typical discomfort when she has ascites. She vomited on 11/25 and 11/26 NBNB. Sodium 122. potassium 5.5. She received 2 L NS bolus in the ED and treatment for hyperkalemia with kayexalate/calcium/dextrose/insulin. She received lactulose [address] brain and abdomen were ordered but she was uncooperative with the exam. Family at bedside say she is now much improved. She is now oriented x3 and conversant. 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 Meld score is now up to 32. Attempting albumin/ norepinephrine infusion to improve renal function. Sodium is 124. Awake and oriented. Objective Vital Signs Date Time Temp Pulse Resp B/P Pulse Ox O2 Delivery O2 Flow Rate FiO2 12/11/16 12:00 56 12/11/16 12:00 97.8 12 91/52 98 12/10/16 08:12 Room Air 12/07/16 14:12 3 Intake and Output 12/10/16 12/10/16 12/11/16 08:00 16:00 00:00 Intake Total 120 ml 187 ml 1644 ml Output Total 2 ml 0 ml Balance 118 ml 187 ml 1644 ml Result Diagram: 12/11/16 0540 12/11/16 0540 Imaging Last Impressions Head CT 12/05/162108 Signed Impressions: Service Date/Time: Monday, December 05, 2016 08:59 - CONCLUSION: Normal examination for a patient of this age. No significant change has occurred. Bryan Mahmood MD Cyst Biopsy Asp-Paracentesis US 12/05/16 0000 Signed Impressions: Service Date/Time: Monday, December 05, 2016 11:26 - CONCLUSION: Uncomplicated ultrasound guided paracentesis. Patient received albumin. Nitin Cook MD FACR Abdomen/Pelvis CT 12/05/16 0000 Signed Impressions: Service Date/Time: Monday, December 05, 2016 09:03 - CONCLUSION: 1. Liver cirrhosis with moderate ascites, splenomegaly and varices similar in appearance to prior CT examinations. 2. Stable right adnexal mass measuring about 7.7 cm compared with September 2015. 3. Downs catheter in bladder. No bowel obstruction. No gastric distention. Bryan Mahmood MD Chest X-Ray 12/04/162108 Signed Impressions: Service Date/Time: Sunday, December 04, 2016 21:09 - CONCLUSION: No definite infiltrate Toñito Fulton MD Objective Remarks GENERAL: 56-year-old female, critically ill and jaundiced patient with protuberant abdomen resting in bed in no acute distress SKIN: Warm and dry. Jaundiced. Multiple telangiectasia over chest. Multiple ecchymoses overlying bilateral upper extremities. HEAD: Atraumatic. Normocephalic. EYES: Pupils equal and round. + Scleral icterus ENT: No nasal bleeding or discharge. Mucous membranes moderately moist and pink. Oropharynx without erythema NECK: Trachea midline. CARDIOVASCULAR: Regular rate and rhythm. S1, S2. No S4. No murmurs rubs or gallops. RESPIRATORY: Clear to auscultation. Breath sounds diminished bibasilar. On RA. GASTROINTESTINAL: Abdomen slightly protuberant, nontender.. Prior to gestation caput medusae MUSCULOSKELETAL: Extremities 1+ pitting bipedal edema. NEUROLOGICAL: Awake, alert, oriented person place and time. Strength equal symmetric bilaterally. Normal sensation. Date of Insertion: Dec 10, 2016 Line: Central Venous Catheter Side: Left Location: Internal, Jugular A/P Assessment and Plan Hepatic encephalopathy - rifaximin 550 mg by mouth twice a day - lactulose 30 g by mouth twice a day. - Hold Effexor 50 mg by mouth daily at home Tobaccoism - Nasal cannula to maintain saturations greater than equal to 92% - Incentive spirometry while awake - albuterol every 6 hours - Cessation provided Hypotension - shock multifactorial - norepinephrine drip to increase renal perfusion - albumin drip for a wrist type I. - Hold propranolol in light of hypotension/vasopressor usage - Holding diuretics - Cortisol level was 12/low - stress dose Solu-Cortef 100 every 8. Portal hypertension - due to Cirrhosis - Ambar Summers C, MELD 32 - Status post EGD - esophageal varices rate 3 status post banding 2 - autoimmune etiology - JOSH positive. - ASMA negative. - ceruloplasmin negative, - ferritin low, - [id number] nl. - viral hepatitis panel negative. - IgG 2 low. - Negative ALC -1 not indicative of autoimmune hepatitis. - Paracentesis negative for SBP. -12 L. Hyponatremia - TSH 2.9. Cortisol was 12.1. - normal saline at 150 cc an hour - Hold spironolactone for now due to hyperkalemia - Holding Lasix 40 mg by mouth twice a day in light of hypotension Acute kidney injury - hepato-renal sy ?? - albumin infusion 12.5 g IV every 6 hours along with norepinephrine to maintain MAP around 70 - Follow-up creatinine in a.m. for results. - Very poor prognosis UTI Fara cruris Received Cipro since admission emergency department. Continue at 500 mg by mouth twice a day SBP treatment and prophylaxis. Follow-up ascitic fluid cell counts Nystatin powder twice a day affected areas HEME: Chronic thrombocytopenia secondary to cirrhosis Mild Coagulopathy secondary to cirrhosis Leukocytosis Normocytic anemia Monitor CBC/coags daily. Current coags pending on fibrinogen ENDO: Diabetes mellitus Low-dose insulin sliding scale at bedside glucose every 6 hours ACCESS: Left IJ CVL day #1 Prophylaxis - GI - Protonix - DVT - SCDs/pharmacological prophylaxis on hold for possible liver biopsy Critical Care: The total critical care time was 45 minutes. Time to perform other separately billable procedures was not included in the critical care time. Neeraj Sullivan MD Dec 11, 2016 14:11
--- NOTE | 2016-12-11 16:48 | HHI.GIFU ---
Subjective Remarks Pt transferred to [facility] for worsening renal function and electrolyte abnormalities. She is lethargic, but oriented to place and person. Transjugular liver biopsy was scheduled for today- D/W Dr. Fulton- patient is currently not stable for liver biopsy as she is on vasopressors and he would feel more comfortable doing CT guided liver biopsy after paracentesis when she is stable. Will hold on this until she is more stable. (Merary Hernandez) Objective Vitals I&O Vital Signs Date Time Temp Pulse Resp B/P Pulse Ox O2 Delivery O2 Flow Rate FiO2 12/11/16 14:00 59 12/11/16 12:00 56 12/11/16 12:00 97.8 55 12 91/52 98 12/11/16 10:00 60 12/11/16 08:00 97.8 60 11 94/54 97 12/11/16 08:00 59 12/11/16 06:00 59 12/11/16 04:00 97.2 58 12 92/55 95 12/11/16 04:00 58 12/11/16 02:00 58 12/11/16 00:00 56 12/11/16 00:00 97.6 56 13 85/48 97 12/10/16 20:00 97.3 59 14 93/52 98 12/10/16 20:00 59 12/10/16 18:00 57 I/O 12/10/16 12/10/16 12/10/16 12/11/16 12/11/16 12/11/16 07:00 15:00 23:00 07:00 15:00 23:00 Intake Total 240 ml 187 ml 1644 ml 1255 ml 1478 ml Output Total 2 ml 0 ml 2 ml Balance 238 ml 187 ml 1644 ml 1253 ml 1478 ml Intake Oral 240 ml 360 ml IV Total 187 ml 1284 ml 1255 ml 1478 ml Output Urine Total 2 ml 0 ml 2 ml # Voids 1 1 # Bowel Movements 0 0 2 0 Laboratory Laboratory Tests Test 12/10/16 12/11/16 23:45 05:40 Urine Eosinophils NONE SEEN Urine Osmolality 370 Urine Random Creatinine 98.4 Urine Random Sodium 6 White Blood Count 10.6 Red Blood Count 2.84 Hemoglobin 9.6 Hematocrit 27.8 Mean Corpuscular Volume 97.8 Mean Corpuscular Hemoglobin 34.0 Mean Corpuscular Hemoglobin 34.7 Concent Red Cell Distribution Width 16.0 Platelet Count 64 Mean Platelet Volume 8.8 Neutrophils (%) (Auto) 91.6 Lymphocytes (%) (Auto) 2.9 Monocytes (%) (Auto) 5.2 Eosinophils (%) (Auto) 0.0 Basophils (%) (Auto) 0.3 Neutrophils # (Auto) 9.7 Lymphocytes # (Auto) 0.3 Monocytes # (Auto) 0.6 Eosinophils # (Auto) 0.0 Basophils # (Auto) 0.0 CBC Comment AUTO DIFF Differential Comment AUTO DIFF CONFIRMED Platelet Estimate LOW Platelet Morphology Comment NORMAL Vass Cells 2+ Prothrombin Time 19.0 Prothromb Time International 1.7 Ratio Activated Partial 49.0 Thromboplast Time Fibrinogen 81 Sodium Level 127 Potassium Level 5.5 Chloride Level 99 Carbon Dioxide Level 13.7 Anion Gap 14 Blood Urea Nitrogen 74 Creatinine 2.86 Estimat Glomerular Filtration 17 Rate Random Glucose 155 Lactic Acid Level 2.8 Calcium Level 7.6 Phosphorus Level 7.1 Magnesium Level 2.5 Total Creatine Kinase 28 Albumin 3.0 Imaging Last Impressions Chest X-Ray 12/10/16 1341 Signed Impressions: Service Date/Time: Saturday, December 10, 2016 14:07 - CONCLUSION: 1. Left internal jugular central line has its tip in the superior vena cava. There is no pneumothorax. Sean Villagran MD Head CT 12/05/162108 Signed Impressions: Service Date/Time: Monday, December 05, 2016 08:59 - CONCLUSION: Normal examination for a patient of this age. No significant change has occurred. Bryan Mahmood MD Cyst Biopsy Asp-Paracentesis US 12/05/16 0000 Signed Impressions: Service Date/Time: Monday, December 05, 2016 11:26 - CONCLUSION: Uncomplicated ultrasound guided paracentesis. Patient received albumin. Nitin Cook MD FACR Abdomen/Pelvis CT 12/05/16 0000 Signed Impressions: Service Date/Time: Monday, December 05, 2016 09:03 - CONCLUSION: 1. Liver cirrhosis with moderate ascites, splenomegaly and varices similar in appearance to prior CT examinations. 2. Stable right adnexal mass measuring about 7.7 cm compared with September 2015. 3. Downs catheter in bladder. No bowel obstruction. No gastric distention. Bryan Mahmood MD Physical Exam HEENT: Normocephalic; atraumatic; jaundice. CHEST: CTA, diminished CARDIAC: RRR ABDOMEN: Soft,mod ascites. nontender; hepatosplenomegaly; bowel sounds are present in all four quadrants. EXTREMITIES: BLE edema more so in LLE. SKIN: Multiple ecchymotic area [employer]: Lethargic, orieented to person and place (Merary Hernandez) Assessment and Plan Plan ASSESSMENT: - Elevated LFTs with liver cirrhosis. MELD 16. Unclear etiology for liver cirrhosis. Dx in 2013 and was told at this time this was related to fatty liver disease. She was recently told by her PCP/[facility] that she may have autoimmune hepatitis based on a positive JOSH. She was seen by Dr. Escalante in 2014 and underwent liver workup at that time and this revealed JOSH positive, AMA < 20.0, ASMA negative, Celiac panel negative, Iron saturation 26.1%, AFP 5.4, Hepatitis panel negative. She continues to have JOSH positive with titer 1:160. She seems to have decompensation with recurrent ascites and worsening hepatic encephalopathy since August of this year. Abdomen/ Pelvis CT (12/05/16)----> 1. Liver cirrhosis with moderate ascites, splenomegaly and varices similar in appearance to prior CT examinations. 2. Stable right adnexal mass measuring about 7.7 cm compared with September 2015. 3. Downs catheter in bladder. No bowel obstruction. No gastric distention. This could be autoimmune hepatitis, although her was ASMA negative. ALKM-1, ALC-1, IgG unremarkable. This could also be decompensation from her known liver disease- possibly related to fatty liver dz and/or medication induced. Spoke to Dr. Alnoso Cook re: possible liver disease and he does not feel that he can safely obtain biopsy with her large volume ascites and recommends considering this once her ascites is better controlled and then recommended transjugular liver biopsy. This was scheduled for today, but cancelled secondary to clinical status- not stable for liver biopsy. D/W Dr. Fulton, who would feel more comfortable performing CT guided liver biopsy after paracentesis once stable. Needs outpatient followup, referral to tertiary for liver transplant evaluation as outpatient. Last LFT 7.0, AST 58, ALT 44, Alk Phosph 105. ALKM-1 < 20.0. Total IgG 1140. Liver cytosol autoantibodies < 15. - Recurrent ascites. S/P US guided paracentesis with removal of 12,300cc of fluid. Cx negative. Albumin - AMS, Hepatic encephalopathy. Xifaxan, Lactulose. Improved. - GERD. PPI. Stable. EGD during this hospitalization. - N/V since Loi. Stable. PPI. - Coagulopathy, Thrombocytopenia. - UTI, Cx with immature growth. - Hyponatremia, Hyperkalemia. per CCM - Acute renal failure. Renal following, worsening. - Portal hypertension, hx esophageal varices. EGD with band ligation (12/07/16)-- ----> two large varices with nipple sign (high potential of bleeding) Propranolol. PLAN: - 2 gram sodium diet - Cont. Albumin - Cont. PPI - Cont. Propranolol - Cont. Lactulose - Cont. Xifaxan - ALC-1 < 15, ALKM-1 < 20.0. Total IgG 1140. - Supportive care - Liver biopsy cancelled secondary to clinical status/on pressors- consider CT guided liver biopsy after paracentesis vs. transjugular liver biopsy once stable - Will need outpatient follow up and referral to tertiary for liver transplant evaluation as outpatient - Further recommendations to follow based on results of above - Pt seen and examined by Dr. Britton and myself and this note is written on his behalf (Merary Hernandez) Physician Comments Patient seen and examined Agree with above Continue with current supportive care Monitor labs Would recommend transjugular approach for liver biopsy once patient is a little more stable (Romario Britton MD) Merary Hernandez Dec 11, 2016 16:48 Romario Britton MD Dec 11, 2016 21:37
[2016-12-12] VITALS (12 sets, daily range): BP systolic 88–118; BP diastolic 52–59; PULSE 56–80; RESP 10–20; TEMP 97.5–98.8; O2SAT 96–98
[2016-12-12] MEDS: SODIUM CHLOR 0.9% 1000 ML INJ 1,000 ML IV SCH ×4 (00:11→21:00)
[2016-12-12] MEDS: CHLORHEXIDINE GLUCONATE 2 % 1 PACK (2 CLOTHS) TOP SCH (03:18)
[2016-12-12] MEDS: NOREPINEPHRINE INJ 4 MG in SODIUM CHLOR 0.9% 250 ML INJ 246 ML IV SCH (03:28)
[2016-12-12 05:19] LABS: AUTOMATED NEUTROPHIL # 9.3 TH/MM3 (1.8-7.7); BASOPHIL % 0.1 % (0.0-2.0); EOSINOPHIL % 0.1 % (0.0-4.0); HEMATOCRIT 27.3 % (35.0-46.0); LYMPH % 2.4 % (9.0-44.0); LYMPHOCYTE # 0.2 TH/MM3 (1.0-4.8); MEAN CELL VOLUME 97.9 FL (80.0-100.0); MEAN CORPUSCULAR HEMOGLOBIN 34.1 PG (27.0-34.0); MEAN CORPUSCULAR HGB CONC 34.8 % (32.0-36.0); MONO % 6.5 % (0.0-8.0); NEUT % 90.9 % (16.0-70.0); PLATELET COUNT 60 TH/MM3 (150-450); RED BLOOD COUNT 2.79 MIL/MM3 (4.00-5.30); RED CELL DISTRIBUTION WIDTH 16.5 % (11.6-17.2); WHITE BLOOD COUNT 10.2 TH/MM3 (4.0-11.0)
[2016-12-12 05:28] LABS: INTERNATIONAL NORMALIZED RATIO 1.8 RATIO; PROTHROMBIN TIME - PATIENT 20.1 SEC (9.8-11.6)
[2016-12-12 05:44] LABS: ALKALINE PHOSPHATASE 88 U/L (45-117); ALT (GPT) 38 U/L (10-53); ANION GAP 14 MEQ/L (5-15); AST (GOT) 45 U/L (15-37); BICARBONATE 13.3 MEQ/L (21.0-32.0); BLOOD UREA NITROGEN 77 MG/DL (7-18); CHLORIDE 104 MEQ/L (98-107); GLOMERULAR FILTRATION RATE 19 ML/MIN (>89); MAGNESIUM 2.6 MG/DL (1.5-2.5); POTASSIUM 5.3 MEQ/L (3.5-5.1); SODIUM (NA) 131 MEQ/L (136-145); TOTAL BILIRUBIN ADULT 6.4 MG/DL (0.2-1.0)
[2016-12-12] MEDS: INSULIN ASPART SUPPLEMENTAL SCALE SQ SCH ×4 (06:39→21:00)
[2016-12-12] MEDS: HYDROCORTISONE SOD SUCCINATE 100 MG VIAL IV PUSH SCH ×3 (06:39→21:10)
[2016-12-12] MEDS: ALBUMIN HUMAN 25% 12.5 GM/50 ML BAGP IV SCH ×4 (06:39→23:40)
[2016-12-12 07:04] LABS: HEMO FLAGS AUTO DIFF
[2016-12-12] MEDS: SODIUM CHLORIDE 0.9% FLUSH 5 ML FLUSH IV FLUSH SCH ×2 (07:53→21:11)
[2016-12-12] MEDS: LACTULOSE SYRUP 20 GM/30 ML CUP PO SCH ×3 (08:55→21:10)
[2016-12-12] MEDS: RIFAXIMIN 550 MG TAB PO SCH ×2 (08:56→21:10)
[2016-12-12] MEDS: PANTOPRAZOLE SOD 40 MG DELAYED RELEASE TAB PO SCH (08:56)
[2016-12-12] MEDS: SODIUM CHLORIDE 0.9% FLUSH 5 ML FLUSH IVF SCH (08:56)
[2016-12-12] MEDS: NYSTATIN 100,000 UNIT/GM CREAM 15 GM TOPICAL SCH ×2 (08:56→21:16)
[2016-12-12 09:25] LABS: BANDS 12 % (0-6); NEUTROPHIL # MANUAL DIFF 8.9 TH/MM3 (1.8-7.7); POLYS (SEG NEUTROPHILS) 75 % (16-70); WBC DIFF SAMPLE 100
[2016-12-12 09:26] LABS: BURR CELLS 1+ (NORMAL); PLATELET ESTIMATE SMEAR LOW (NORMAL); PLATELET MORPHOLOGY NORMAL (NORMAL); SCAN/DIFF FINAL DIFF MANUAL
--- NOTE | 2016-12-12 13:20 | HHI.CCPN ---
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 She has no h/o EtOH or IVDU. She has been followed by Dr. Gomez as outpatient and previously seen by Dr. Escalante. There has been discussion of referral to transplant center but patient has not always had good followup due to financial constraints. She has recently been approved for SSI. She presents to [facility] [place] [facility] due to altered mental status. Her sisters are at bedside and state that since about august or september of 2016 that she sleeps 70-80% of the day. However, she is typically coherent when she is awake. She slept all day on 12/04/16 and around 4 pm she got up and was "off balance" and nearly fell in the shower. She was also disoriented and could state that she was in [place] but could not answer any other questions. She was also agitated and cursing, which is not in her nature. She has no reported head trauma. She has been compliant with lactulose 30 bid. Ammonia level is 72. She has tense ascites and has been requiring paracentesis since september of 2015, now requiring weekly paracentesis for the last several months. Family states typically remove ~12 L. Last paracentesis was on 11/30 and 14 L were removed. She is on spironolactone 100 bid and lasix 40 bid. She reportedly has had no fever. She has had chills for "Several months". She reports no abdominal pain outside of the typical discomfort when she has ascites. She vomited on 11/25 and 11/26 NBNB. Sodium 122. potassium 5.5. She received 2 L NS bolus in the ED and treatment for hyperkalemia with kayexalate/calcium/dextrose/insulin. She received lactulose [address] brain and abdomen were ordered but she was uncooperative with the exam. Objective Vital Signs Date Time Temp Pulse Resp B/P Pulse Ox O2 Delivery O2 Flow Rate FiO2 12/12/16 10:00 58 12/12/16 08:00 97.6 12 107/57 97 12/10/16 08:12 Room Air Intake and Output 12/11/16 12/11/16 12/12/16 08:00 16:00 00:00 Intake Total 1255 ml 1478 ml 1526 ml Output Total 2 ml 150 ml Balance 1253 ml 1478 ml 1376 ml Result Diagram: 12/12/16 0450 12/12/16 0450 Imaging Last Impressions Head CT 12/05/162108 Signed Impressions: Service Date/Time: Monday, December 05, 2016 08:59 - CONCLUSION: Normal examination for a patient of this age. No significant change has occurred. Bryan Mahmood MD Cyst Biopsy Asp-Paracentesis US 12/05/16 0000 Signed Impressions: Service Date/Time: Monday, December 05, 2016 11:26 - CONCLUSION: Uncomplicated ultrasound guided paracentesis. Patient received albumin. Nitin Cook MD FACR Abdomen/Pelvis CT 12/05/16 0000 Signed Impressions: Service Date/Time: Monday, December 05, 2016 09:03 - CONCLUSION: 1. Liver cirrhosis with moderate ascites, splenomegaly and varices similar in appearance to prior CT examinations. 2. Stable right adnexal mass measuring about 7.7 cm compared with September 2015. 3. Downs catheter in bladder. No bowel obstruction. No gastric distention. Bryan Mahmood MD Chest X-Ray 12/04/162108 Signed Impressions: Service Date/Time: Sunday, December 04, 2016 21:09 - CONCLUSION: No definite infiltrate Toñito Fulton MD Objective Remarks GENERAL: 56-year-old female, critically ill and jaundiced patient with protuberant abdomen resting in bed in no acute distress SKIN: Warm and dry. Jaundiced. Multiple telangiectasia over chest. Multiple ecchymoses overlying bilateral upper extremities. HEAD: Atraumatic. Normocephalic. EYES: Pupils equal and round. + Scleral icterus ENT: No nasal bleeding or discharge. Mucous membranes moderately moist and pink. Oropharynx without erythema NECK: Trachea midline. CARDIOVASCULAR: Regular rate and rhythm. S1, S2. No S4. No murmurs rubs or gallops. RESPIRATORY: Clear to auscultation. Breath sounds diminished bibasilar. On RA. GASTROINTESTINAL: Abdomen slightly protuberant, nontender.. Prior to gestation caput medusae MUSCULOSKELETAL: Extremities 1+ pitting bipedal edema. NEUROLOGICAL: Awake, alert, oriented person place and time. Strength equal symmetric bilaterally. Normal sensation. Procedures 12/07/2016 Upper gastrointestinal endoscopy with esophageal varices banding. Date of Insertion: Dec 10, 2016 Line: Central Venous Catheter Side: Left Location: Internal, Jugular A/P Assessment and Plan Hepatic encephalopathy - rifaximin 550 mg by mouth twice a day - lactulose 30 g by mouth twice a day increase to 60 Q6H - Hold Effexor 50 mg by mouth daily at home Tobaccoism - Nasal cannula to maintain saturations greater than equal to 92% - Incentive spirometry while awake - albuterol every 6 hours - Cessation provided Hypotension - shock multifactorial - norepinephrine drip to increase renal perfusion - albumin drip for a wrist type I. - will increase - Hold propranolol in light of hypotension/vasopressor usage - Holding diuretics - Cortisol level was 12/low - stress dose Solu-Cortef 100 every 8. Portal hypertension - due to Cirrhosis - Ambar Summers C, MELD 32 - Status post EGD - esophageal varices rate 3 status post banding 2 - autoimmune etiology - JOSH positive. - ASMA negative. - ceruloplasmin negative, - ferritin low, - [id number] nl. - viral hepatitis panel negative. - IgG 2 low. - Negative ALC -1 not indicative of autoimmune hepatitis. - Paracentesis negative for SBP. -12 L. - management per GI Hyponatremia - TSH 2.9. Cortisol was 12.1. - normal saline at 150 cc an hour - Hold spironolactone for now due to hyperkalemia - Holding Lasix 40 mg by mouth twice a day in light of hypotension Acute kidney injury - hepato-renal sy ?? - albumin infusion 12.5 g IV every 6 hours along with norepinephrine to maintain MAP around 70 - Follow-up creatinine slightly improved today - Very poor prognosis UTI - Fara cruris - Received Cipro since admission emergency department. - Continue at 500 mg by mouth twice a day SBP treatment and prophylaxis. Chronic thrombocytopenia - secondary to cirrhosis - supportive care Diabetes mellitus - Low-dose insulin sliding scale at bedside glucose every 6 hours Prophylaxis - GI - Protonix - DVT - SCDs/pharmacological prophylaxis on hold for possible liver biopsy Level 3 Neeraj Sullivan MD Dec 12, 2016 13:20
[2016-12-12] MEDS ORDERED: MIDAZOLAM HCL 2 MG/2 ML VIAL IV PUSH ONE (14:00)
--- NOTE | 2016-12-12 15:30 | HHI.NPPN ---
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 Patient admitted with altered mental status. Serum creatinine level noted to have been 0.73 December to subsequently deteriorating today to a level of 2.37 with an estimated GFR of only 21. Serum sodium level low day of consultation at 124. Patient did receive IV contrast with a CT dated December 05. There is also noted that she was on metformin as an outpatient. On questioning patient indicated loose stool related to lactulose. Interval History Pt obtunded today. Sister present in room. (Akanksha Wan) Review of Systems Gastrointestinal Gastrointestinal: Abdominal Pain (Akanksha Wan) Objective Data Data 12/11/16 12/12/16 19:00 07:00 Intake Total 1478 ml 2717 ml Output Total 350 ml Balance 1478 ml 2367 ml Intake Oral 240 ml IV Total 1478 ml 2477 ml Output Urine Total 350 ml # Voids 1 2 # Bowel Movements 0 0 Vital Signs Date Time Temp Pulse Resp B/P Pulse Ox O2 Delivery O2 Flow Rate FiO2 12/12/16 15:00 80 12/12/16 12:00 58 12/12/16 12:00 97.9 65 10 108/56 98 12/12/16 10:00 58 12/12/16 08:00 97.6 59 12 107/57 97 12/12/16 08:00 60 12/12/16 06:00 59 12/12/16 04:00 59 12/12/16 04:00 97.5 59 12 101/57 96 12/12/16 02:00 73 12/12/16 00:00 62 12/12/16 00:00 97.6 62 12 96/52 96 12/11/16 22:00 56 12/11/16 20:00 58 12/11/16 20:00 97.8 58 14 97/55 98 12/11/16 18:00 59 12/11/16 16:00 97.8 58 13 94/51 100 12/11/16 16:00 55 (Akanksha Wan) -: 12/12/16 0450 12/12/16 0450 Medication Review Current Medications Medications (Trade) Dose Ordered Sig/Pam Route Start Time Stop Time Status Last Admin (Xifaxan) 550 mg BID PO 12/05/16 09:00 12/12/16 08:56 (NS Flush) 2 ml UNSCH PRN IV FLUSH 12/05/16 07:00 (NS Flush) 2 ml BID IV FLUSH 12/05/16 09:00 12/11/16 21:11 (Zofran Inj) 4 mg Q6H PRN IV 12/05/16 07:00 12/10/16 05:24 Miscellaneous Information 1 Q361D XX 12/05/16 07:00 (Chlorhexidine 2% Cloth) Taper DAILY@04 TOP 12/06/16 04:00 12/02/17 03:59 12/09/16 04:00 (Chlorhexidine 2% Cloth) 3 pack UNSCH PRN TOP 12/05/16 07:00 (Mycostatin Cream) 1 applic Q12HR TOPICAL 12/05/16 09:00 12/12/16 08:56 (Inderal) 20 mg BID PO 12/05/16 09:00 Hold 12/09/16 20:15 (D50w (Vial) Inj) 25 ml UNSCH PRN IV PUSH 12/05/16 07:15 (Glucagon Inj) 1 mg UNSCH PRN OTHER 12/05/16 07:15 (Protonix) 40 mg DAILY PO 12/09/16 09:00 12/12/16 08:56 Albumin Human 12.5 gm 12.5 gm Q6HR IV 12/09/16 18:00 12/12/16 11:10 Sodium Chloride 1,000 ml @ 150 mls/hr Q6H40M IV 12/10/16 09:00 12/12/16 00:11 (Levophed Inj/NS 250 ml Inj) 250 ml @ 0 mls/hr TITRATE IV 12/10/16 11:30 12/12/16 03:28 (Brethine Inj) 1 mg UNSCH PRN SQ 12/10/16 11:30 (NS Flush) DAILY IVF 12/11/16 09:00 12/12/16 08:56 (NS Flush) UNSCH PRN IVF 12/10/16 13:45 12/11/16 09:32 (SoluCORTEF INJ) 100 mg Q8HR IV PUSH 12/10/16 14:00 12/12/16 14:21 (Lactulose Liq) 60 ml Q6H PO 12/12/16 15:00 12/12/16 14:21 (Akanksha Wan) Physical Exam General Appearance: No Acute Distress, Sleeping (Akanksha Wan) Neck Neck Exam: Neck Supple, Trachea Midline (Akanksha Wan) Pulmonary Resp Exam: Clear Bilaterally, Breath Sounds Equal, Diminished Breath Sounds ( Akanksha Wan) Cardiology CV Exam: Regular, Normal Sinus Rhythm (Akanksha Wan) Gastrointestinal/Abdomen GI Exam: Distended (Akanksha Wan) Integumentary Skin Exam: Warm (Akanksha Wan) Extremeties Extremities Exam: Pitting Edema (one plus lower legs.), Dependent Edema Extremeties Remarks No peripheral edema, but does have edema in abdomen as well as ascites (Akanksha Wan) Neurologic Neuro Exam: Stuporous, Obtunded (Akanksha Wan) Assessment/Plan Problem List: (1) Acute kidney insufficiency Plan: SCr improved slightly. Continue on Levo & Albumin infusions to help with renal profusion. Urine sodium is below 10 consistent with hepatorenal syndrome which I suspect is etiology of the patient's renal failure. This is a poor prognostic indicator. Start po bicarb in light of her acidosis and mild hyperkalemia. Hopefully the patient will respond to IV albumin and norepinephrine. If not only definitive treatment would be hepatic transplant if she is a candidate. If the renal function continues to worsen without improvement in her hepatic status I do not believe dialysis would alter a grim prognosis. Medications should be adjusted for the patient's estimated GFR if clinically indicated. Avoid agents with significant potential for nephrotoxicity possible including NSAIDs for analgesia, iodine contrast agents. Gadolinium is contraindicated if the GFR is below 30. (2) Hyponatremia Plan: Very difficult to correct in the setting of advanced cirrhosis. Correction said not to improve prognosis. (3) Cirrhosis Plan: Live bx pending for today Ammonium levels elevated today. Being treated with Lactulose (4) Ascites (5) Diabetes mellitus Plan: In view of the patient's history of advanced liver disease as well as predisposition to development of renal insufficiency my opinion is metformin should probably be avoided in this setting in the future. (Akanksha Wan) Plan Creatinine level slightly improved but urine output is still poor. Remains be determined whether not any improvement in her hepatorenal syndrome is occurring. I discussed with the family the pathogenesis of hepatorenal syndrome and poor prognosis associated with same if not improved. If the patient is not a transplant candidate and or there is no meaningful improvement in her hepatic function I do not believe that she is a dialysis candidate as dialysis would not improve her outcome to any significant degree. The exam, history, and the medical decision-making described in the above note were completed with the assistance of the [facility]. I reviewed and agree with the findings presented. I attest that I had a [id number] encounter with the patient on the same day, and personally performed and documented my assessment and findings in the medical record. (Karina Armando MD) Akanksha Wan Dec 12, 2016 15:30 Karina Armando MD Dec 12, 2016 17:53
[2016-12-12] MEDS: SODIUM BICARBONATE 650 MG TAB PO SCH ×2 (17:20→21:10)
--- NOTE | 2016-12-12 18:23 | HHI.GIFU ---
Subjective Remarks Pt much more confused today. Was not taking meds earlier and therefore NGT was placed. Sister at bedside. (Merary HernandezP) Objective Vitals I&O Vital Signs Date Time Temp Pulse Resp B/P Pulse Ox O2 Delivery O2 Flow Rate FiO2 12/12/16 15:00 80 12/12/16 12:00 58 12/12/16 12:00 97.9 65 10 108/56 98 12/12/16 10:00 58 12/12/16 08:00 97.6 59 12 107/57 97 12/12/16 08:00 60 12/12/16 06:00 59 12/12/16 04:00 59 12/12/16 04:00 97.5 59 12 101/57 96 12/12/16 02:00 73 12/12/16 00:00 62 12/12/16 00:00 97.6 62 12 96/52 96 12/11/16 22:00 56 12/11/16 20:00 58 12/11/16 20:00 97.8 58 14 97/55 98 I/O 12/11/16 12/11/16 12/11/16 12/12/16 12/12/16 12/12/16 07:00 15:00 23:00 07:00 15:00 23:00 Intake Total 1255 ml 1478 ml 1526 ml 1191 ml 575 ml Output Total 2 ml 150 ml 200 ml 500 ml Balance 1253 ml 1478 ml 1376 ml 991 ml 75 ml Intake Oral 240 ml 0 ml 100 ml IV Total 1255 ml 1478 ml 1286 ml 1191 ml 475 ml Output Urine Total 2 ml 150 ml 200 ml 500 ml Stool Total 0 ml # Voids 1 1 1 # Bowel Movements 2 0 0 0 0 Laboratory Laboratory Tests Test 12/12/16 04:50 White Blood Count 10.2 Red Blood Count 2.79 Hemoglobin 9.5 Hematocrit 27.3 Mean Corpuscular Volume 97.9 Mean Corpuscular Hemoglobin 34.1 Mean Corpuscular Hemoglobin 34.8 Concent Red Cell Distribution Width 16.5 Platelet Count 60 Mean Platelet Volume 8.4 Neutrophils (%) (Auto) 90.9 Lymphocytes (%) (Auto) 2.4 Monocytes (%) (Auto) 6.5 Eosinophils (%) (Auto) 0.1 Basophils (%) (Auto) 0.1 Neutrophils # (Auto) 9.3 Lymphocytes # (Auto) 0.2 Monocytes # (Auto) 0.7 Eosinophils # (Auto) 0.0 Basophils # (Auto) 0.0 CBC Comment AUTO DIFF Differential Total Cells 100 Counted Neutrophils % (Manual) 75 Band Neutrophils % 12 Lymphocytes % 9 Monocytes % 4 Neutrophils # (Manual) 8.9 Differential Comment FINAL DIFF MANUAL Platelet Estimate LOW Platelet Morphology Comment NORMAL Tabatha Cells 1+ Prothrombin Time 20.1 Prothromb Time International 1.8 Ratio Sodium Level 131 Potassium Level 5.3 Chloride Level 104 Carbon Dioxide Level 13.3 Anion Gap 14 Blood Urea Nitrogen 77 Creatinine 2.59 Estimat Glomerular Filtration 19 Rate Random Glucose 168 Calcium Level 8.0 Phosphorus Level 6.0 Magnesium Level 2.6 Total Bilirubin 6.4 Aspartate Amino Transf 45 (AST/SGOT) Alanine Aminotransferase 38 (ALT/SGPT) Alkaline Phosphatase 88 Ammonia 176 Total Protein 5.2 Albumin 3.2 Imaging Last Impressions Chest X-Ray 12/10/16 1341 Signed Impressions: Service Date/Time: Saturday, December 10, 2016 14:07 - CONCLUSION: 1. Left internal jugular central line has its tip in the superior vena cava. There is no pneumothorax. Sean Villagran MD Head CT 12/05/16 2109 Signed Impressions: Service Date/Time: Monday, December 05, 2016 08:59 - CONCLUSION: Normal examination for a patient of this age. No significant change has occurred. Bryan Mahmood MD Cyst Biopsy Asp-Paracentesis US 12/05/16 0000 Signed Impressions: Service Date/Time: Monday, December 05, 2016 11:26 - CONCLUSION: Uncomplicated ultrasound guided paracentesis. Patient received albumin. Nitin Cook MD FACR Abdomen/Pelvis CT 12/05/16 0000 Signed Impressions: Service Date/Time: Monday, December 05, 2016 09:03 - CONCLUSION: 1. Liver cirrhosis with moderate ascites, splenomegaly and varices similar in appearance to prior CT examinations. 2. Stable right adnexal mass measuring about 7.7 cm compared with September 2015. 3. Downs catheter in bladder. No bowel obstruction. No gastric distention. Bryan Mahmood MD Physical Exam HEENT: Normocephalic; atraumatic; jaundice. CHEST: CTA, diminished CARDIAC: RRR ABDOMEN: Soft,mod ascites. nontender; hepatosplenomegaly; bowel sounds are present in all four quadrants. EXTREMITIES: BLE edema more so in LLE. 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 MELD 16. Unclear etiology for liver cirrhosis. Dx in 2013 and was told at this time this was related to fatty liver disease. She was recently told by her PCP/REGENERATOR OPERATOR that she may have autoimmune hepatitis based on a positive JOSH. She was seen by Dr. Escalante in 2014 and underwent liver workup at that time and this revealed JOSH positive, AMA < 20.0, ASMA negative, Celiac panel negative, Iron saturation 26.1%, AFP 5.4, Hepatitis panel negative. She continues to have JOSH positive with titer 1:160. She seems to have decompensation with recurrent ascites and worsening hepatic encephalopathy since August of this year. Abdomen/ Pelvis CT (12/05/16)----> 1. Liver cirrhosis with moderate ascites, splenomegaly and varices similar in appearance to prior CT examinations. 2. Stable right adnexal mass measuring about 7.7 cm compared with September 2015. 3. Downs catheter in bladder. No bowel obstruction. No gastric distention. This could be autoimmune hepatitis, although her was ASMA negative. ALKM-1, ALC-1, IgG unremarkable. This could also be decompensation from her known liver disease- possibly related to fatty liver dz and/or medication induced. Liver biopsy cancelled yesterday secondary to clinical condition (hypotensive on pressors). She will need transjugular liver biopsy once more stable. Needs outpatient followup, referral to tertiary for liver transplant evaluation as outpatient. Last LFT 6.0, AST 45, ALT 38, Alk Phosph 88. ALKM-1 < 20.0. Total IgG 1140. Liver cytosol autoantibodies < 15. - Recurrent ascites. S/P US guided paracentesis with removal of 12,300cc of fluid. Cx negative. Albumin - AMS, Hepatic encephalopathy. Worsening overnight and today. Now very confused. On Xifaxan, Lactulose was increased by [facility]. She has NGT to get meds. Will monitor and titrate lactulose as needed. - GERD. PPI. Stable. EGD during this hospitalization. - N/V since Loi. Stable. PPI. - Coagulopathy, Thrombocytopenia. WOrsening. Fibrinogen 81. No active bleeding. - UTI, Cx with immature growth. - Hyponatremia, Hyperkalemia. per CCM - Acute renal failure. Renal following, worsening. Per renal- only would consider HD if goal was to get patient to tertiary for liver transplant. - Portal hypertension, hx esophageal varices. EGD with band ligation (12/07/16)-- ----> two large varices with nipple sign (high potential of bleeding) PLAN: - Nepro at 30cc/hr - Exterior Designer for recommendations - Cont. Albumin - Cont. PPI - Cont. Propranolol - Cont. Lactulose, titrate dose as needed - Cont. Xifaxan - ALC-1 < 15, ALKM-1 < 20.0. Total IgG 1140. - Supportive care - Transjugular liver biopsy once stable - Will need outpatient follow up and referral to tertiary for liver transplant evaluation as outpatient - Further recommendations to follow based on results of above - Pt seen and examined by Dr. Britton and myself and this note is written on his behalf (Merary Hernandez) Physician Comments Patient seen and examined Agree with above Continue with current supportive care Monitor labs (Romario Britton MD) Merary Hernandez Dec 12, 2016 18:23 Romario Britton MD Dec 12, 2016 20:33
[2016-12-12] MEDS: DEXMEDETOMIDINE INJ 50 ML IV SCH (21:11)
[2016-12-13] VITALS (12 sets, daily range): BP systolic 93–115; BP diastolic 50–61; PULSE 55–70; RESP 13–15; TEMP 95.9–97.6; O2SAT 96–98
[2016-12-13] MEDS: NOREPINEPHRINE INJ 4 MG in SODIUM CHLOR 0.9% 250 ML INJ 246 ML IV SCH ×4 (00:01→21:08)
[2016-12-13] MEDS: DEXMEDETOMIDINE INJ 50 ML IV SCH ×4 (00:47→10:36)
[2016-12-13] MEDS: SODIUM CHLOR 0.9% 1000 ML INJ 1,000 ML IV SCH ×3 (03:40→17:00)
[2016-12-13] MEDS: CHLORHEXIDINE GLUCONATE 2 % 1 PACK (2 CLOTHS) TOP SCH (04:00)
[2016-12-13] MEDS: LACTULOSE SYRUP 20 GM/30 ML CUP PO SCH ×4 (04:31→21:00)
[2016-12-13] MEDS: SODIUM BICARBONATE 650 MG TAB PO SCH ×2 (05:12→14:47)
[2016-12-13] MEDS: HYDROCORTISONE SOD SUCCINATE 100 MG VIAL IV PUSH SCH ×2 (05:13→14:47)
[2016-12-13] MEDS: ALBUMIN HUMAN 25% 12.5 GM/50 ML BAGP IV SCH ×3 (05:14→18:00)
[2016-12-13 06:08] LABS: AUTOMATED NEUTROPHIL # 10.6 TH/MM3 (1.8-7.7); BASOPHIL % 0.1 % (0.0-2.0); HEMATOCRIT 28.3 % (35.0-46.0); LYMPH % 2.2 % (9.0-44.0); LYMPHOCYTE # 0.3 TH/MM3 (1.0-4.8); MEAN CELL VOLUME 98.3 FL (80.0-100.0); MEAN CORPUSCULAR HGB CONC 34.6 % (32.0-36.0); MONO % 6.1 % (0.0-8.0); NEUT % 91.6 % (16.0-70.0); PLATELET COUNT 76 TH/MM3 (150-450); RED BLOOD COUNT 2.88 MIL/MM3 (4.00-5.30); RED CELL DISTRIBUTION WIDTH 16.7 % (11.6-17.2); WHITE BLOOD COUNT 11.6 TH/MM3 (4.0-11.0)
[2016-12-13 06:13] LABS: HEMO FLAGS AUTO DIFF
[2016-12-13 06:29] LABS: BICARBONATE 14.6 MEQ/L (21.0-32.0); MAGNESIUM 2.8 MG/DL (1.5-2.5); POTASSIUM 5.6 MEQ/L (3.5-5.1)
[2016-12-13] MEDS: INSULIN ASPART SUPPLEMENTAL SCALE SQ SCH ×4 (06:48→21:00)
[2016-12-13 08:01] LABS: PLATELET ESTIMATE SMEAR LOW (NORMAL); PLATELET MORPHOLOGY NORMAL (NORMAL); SCAN/DIFF AUTO DIFF CONFIRMED
[2016-12-13] MEDS ORDERED: SODIUM POLYSTYRENE SULFONATE SUSP 15 GM/60 ML CUP PO ONE (08:15)
--- NOTE | 2016-12-13 08:24 | HHI.CCPN ---
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 She has no h/o EtOH or IVDU. She has been followed by Dr. Gomez as outpatient and previously seen by Dr. Escalante. There has been discussion of referral to transplant center but patient has not always had good followup due to financial constraints. She has recently been approved for SSI. She presents to [facility] ED due to altered mental status. Her sisters are at bedside and state that since about august or september of 2016 that she sleeps 70-80% of the day. However, she is typically coherent when she is awake. She slept all day on 12/04/16 and around 4 pm she got up and was "off balance" and nearly fell in the shower. She was also disoriented and could state that she was in [place] but could not answer any other questions. She was also agitated and cursing, which is not in her nature. She has no reported head trauma. She has been compliant with lactulose 30 bid. Ammonia level is 72. She has tense ascites and has been requiring paracentesis since september of 2015, now requiring weekly paracentesis for the last several months. Family states typically remove ~12 L. Last paracentesis was on 11/30 and 14 L were removed. She is on spironolactone 100 bid and lasix 40 bid. She reportedly has had no fever. She has had chills for "Several months". She reports no abdominal pain outside of the typical discomfort when she has ascites. She vomited on 11/25 and 11/26 NBNB. Sodium 122. potassium 5.5. She received 2 L NS bolus in the ED and treatment for hyperkalemia with kayexalate/calcium/dextrose/insulin. She received lactulose [address] brain and abdomen were ordered but she was uncooperative with the exam. Objective Vital Signs Date Time Temp Pulse Resp B/P Pulse Ox O2 Delivery O2 Flow Rate FiO2 12/13/16 06:00 60 12/13/16 04:00 97.0 14 93/54 97 12/10/16 08:12 Room Air Intake and Output 12/12/16 12/12/16 12/13/16 08:00 16:00 00:00 Intake Total 1191 ml 575 ml 343 ml Output Total 200 ml 500 ml 325 ml Balance 991 ml 75 ml 18 ml Result Diagram: 12/13/1628 12/13/1628 Imaging Last Impressions Head CT 12/05/162108 Signed Impressions: Service Date/Time: Monday, December 05, 2016 08:59 - CONCLUSION: Normal examination for a patient of this age. No significant change has occurred. Bryan Mahmood MD Cyst Biopsy Asp-Paracentesis US 12/05/16 0000 Signed Impressions: Service Date/Time: Monday, December 05, 2016 11:26 - CONCLUSION: Uncomplicated ultrasound guided paracentesis. Patient received albumin. Nitin Cook MD FACR Abdomen/Pelvis CT 12/05/16 0000 Signed Impressions: Service Date/Time: Monday, December 05, 2016 09:03 - CONCLUSION: 1. Liver cirrhosis with moderate ascites, splenomegaly and varices similar in appearance to prior CT examinations. 2. Stable right adnexal mass measuring about 7.7 cm compared with September 2015. 3. Downs catheter in bladder. No bowel obstruction. No gastric distention. Bryan Mahmood MD Chest X-Ray 12/04/162108 Signed Impressions: Service Date/Time: Sunday, December 04, 2016 21:09 - CONCLUSION: No definite infiltrate Toñito Fulton MD Objective Remarks GENERAL: 56-year-old female, critically ill and jaundiced patient with protuberant abdomen resting in bed in no acute distress SKIN: Warm and dry. Jaundiced. Multiple telangiectasia over chest. Multiple ecchymoses overlying bilateral upper extremities. HEAD: Atraumatic. Normocephalic. EYES: Pupils equal and round. + Scleral icterus ENT: No nasal bleeding or discharge. Mucous membranes moderately moist and pink. Oropharynx without erythema NECK: Trachea midline. CARDIOVASCULAR: Regular rate and rhythm. S1, S2. No S4. No murmurs rubs or gallops. RESPIRATORY: Clear to auscultation. Breath sounds diminished bibasilar. On RA. GASTROINTESTINAL: Abdomen slightly protuberant, nontender.. Prior to gestation caput medusae MUSCULOSKELETAL: Extremities 1+ pitting bipedal edema. NEUROLOGICAL: Awake, alert, oriented person place and time. Strength equal symmetric bilaterally. Normal sensation. Procedures 12/07/2016 Upper gastrointestinal endoscopy with esophageal varices banding. Date of Insertion: Dec 10, 2016 Line: Central Venous Catheter Side: Left Location: Internal, Jugular A/P Assessment and Plan Hepatic encephalopathy - rifaximin 550 mg by mouth twice a day - lactulose 30 g by mouth twice a day increase to 60 Q6H without improvement - Hold Effexor 50 mg by mouth daily at home Tobaccoism - comfortable on RA - Nasal cannula if needed to maintain saturations greater than equal to 92% - albuterol every 6 hours Hypotension - shock multifactorial - norepinephrine drip to increase renal perfusion - albumin drip for a wrist type I. - will increased - Hold propranolol in light of hypotension/vasopressor usage - Holding diuretics - Cortisol level was 12/low - stress dose Solu-Cortef 100 every 8. Portal hypertension - due to Cirrhosis - Ambar Summers C, MELD 32 - Status post EGD - esophageal varices rate 3 status post banding 2 - autoimmune etiology - JOSH positive. - ASMA negative. - ceruloplasmin negative, - ferritin low, - [id number] nl. - viral hepatitis panel negative. - IgG 2 low. - Negative ALC -1 not indicative of autoimmune hepatitis. - Paracentesis negative for SBP. -12 L. - management per GI Hyponatremia - TSH 2.9. Cortisol was 12.1. - normal saline at 150 cc an hour - Hold spironolactone for now due to hyperkalemia - Holding Lasix 40 mg by mouth twice a day in light of hypotension Acute kidney injury - hepato-renal sy ?? - albumin infusion 12.5 g IV every 6 hours along with norepinephrine to maintain MAP around 70 - Follow-up creatinine slightly improved today - Very poor prognosis UTI - Fara cruris - Received Cipro since admission emergency department. - Continue at 500 mg by mouth twice a day SBP treatment and prophylaxis. Chronic thrombocytopenia - secondary to cirrhosis - supportive care Diabetes mellitus - Low-dose insulin sliding scale at bedside glucose every 6 hours Prophylaxis - GI - Protonix - DVT - SCDs/pharmacological prophylaxis on hold for possible liver biopsy Discussed with sister worsening of clinical course. Patient would not want to prolong her life without good quality using artificial measures such as ventilator or other life support. We will consult palliative care medicine and place DNR/DNI order on a chart per her wishes. Level 3 Neeraj Sullivan MD Dec 13, 2016 08:24
[2016-12-13] MEDS: PANTOPRAZOLE SOD 40 MG DELAYED RELEASE TAB PO SCH (09:00)
[2016-12-13] MEDS: SODIUM CHLORIDE 0.9% FLUSH 5 ML FLUSH IVF SCH (09:00)
[2016-12-13] MEDS ORDERED: PANTOPRAZOLE SODIUM 40 MG VIAL IV PUSH SCH (10:00)
[2016-12-13] MEDS: RIFAXIMIN 550 MG TAB PO SCH ×2 (10:05→21:00)
[2016-12-13] MEDS: SODIUM CHLORIDE 0.9% FLUSH 5 ML FLUSH IV FLUSH SCH ×2 (10:05→20:41)
[2016-12-13] MEDS: NYSTATIN 100,000 UNIT/GM CREAM 15 GM TOPICAL SCH ×2 (10:07→21:05)
--- NOTE | 2016-12-13 12:07 | HHI.GIFU ---
Subjective Remarks Pt resting in bed. She was started on Precedex and is now much calmer. She is lethargic. (Merary Hernandez) Objective Vitals I&O Vital Signs Date Time Temp Pulse Resp B/P Pulse Ox O2 Delivery O2 Flow Rate FiO2 12/13/16 06:00 60 12/13/16 04:00 58 12/13/16 04:00 97.0 58 14 93/54 97 12/13/16 02:00 55 12/13/16 00:00 56 12/13/16 00:00 97.6 56 13 93/53 97 12/12/16 22:00 58 12/12/16 20:00 98.7 58 14 88/53 97 12/12/16 18:00 59 12/12/16 16:00 98.8 71 20 118/59 98 12/12/16 16:00 56 12/12/16 15:00 80 I/O 12/12/16 12/12/16 12/12/16 12/13/16 12/13/16 12/13/16 07:00 15:00 23:00 07:00 15:00 23:00 Intake Total 1191 ml 575 ml 343 ml 259 ml Output Total 200 ml 500 ml 325 ml 250 ml Balance 991 ml 75 ml 18 ml 9 ml Intake Oral 0 ml 100 ml 0 ml IV Total 1191 ml 475 ml 293 ml 259 ml Tube Feeding 50 ml Output Urine Total 200 ml 500 ml 325 ml 250 ml Stool Total 0 ml 0 ml # Voids 1 # Bowel Movements 0 0 0 Laboratory Laboratory Tests Test 12/13/16 05:28 White Blood Count 11.6 Red Blood Count 2.88 Hemoglobin 9.8 Hematocrit 28.3 Mean Corpuscular Volume 98.3 Mean Corpuscular Hemoglobin 34.0 Mean Corpuscular Hemoglobin 34.6 Concent Red Cell Distribution Width 16.7 Platelet Count 76 Mean Platelet Volume 8.3 Neutrophils (%) (Auto) 91.6 Lymphocytes (%) (Auto) 2.2 Monocytes (%) (Auto) 6.1 Eosinophils (%) (Auto) 0.0 Basophils (%) (Auto) 0.1 Neutrophils # (Auto) 10.6 Lymphocytes # (Auto) 0.3 Monocytes # (Auto) 0.7 Eosinophils # (Auto) 0.0 Basophils # (Auto) 0.0 CBC Comment AUTO DIFF Differential Comment AUTO DIFF CONFIRMED Platelet Estimate LOW Platelet Morphology Comment NORMAL Sodium Level 135 Potassium Level 5.6 Chloride Level 108 Carbon Dioxide Level 14.6 Anion Gap 12 Blood Urea Nitrogen 87 Creatinine 2.68 Estimat Glomerular Filtration 19 Rate Random Glucose 192 Calcium Level 8.6 Phosphorus Level 5.1 Magnesium Level 2.8 Ammonia 197 Albumin 3.4 Imaging Last Impressions Chest X-Ray 12/10/16 1341 Signed Impressions: Service Date/Time: Saturday, December 10, 2016 14:07 - CONCLUSION: 1. Left internal jugular central line has its tip in the superior vena cava. There is no pneumothorax. Sean Villagran MD Head CT 12/05/16 2109 Signed Impressions: Service Date/Time: Monday, December 05, 2016 08:59 - CONCLUSION: Normal examination for a patient of this age. No significant change has occurred. Bryan Mahmood MD Cyst Biopsy Asp-Paracentesis US 12/05/16 0000 Signed Impressions: Service Date/Time: Monday, December 05, 2016 11:26 - CONCLUSION: Uncomplicated ultrasound guided paracentesis. Patient received albumin. Nitin Cook MD FACR Abdomen/Pelvis CT 12/05/16 0000 Signed Impressions: Service Date/Time: Monday, December 05, 2016 09:03 - CONCLUSION: 1. Liver cirrhosis with moderate ascites, splenomegaly and varices similar in appearance to prior CT examinations. 2. Stable right adnexal mass measuring about 7.7 cm compared with September 2015. 3. Downs catheter in bladder. No bowel obstruction. No gastric distention. Bryan Mahmood MD Physical Exam HEENT: Normocephalic; atraumatic; jaundice. CHEST: CTA, diminished CARDIAC: RRR ABDOMEN: Soft,mod ascites. nontender; hepatosplenomegaly; bowel sounds are present in all four quadrants. EXTREMITIES: BLE edema more so in LLE. SKIN: Multiple ecchymotic area DIRECTOR OF EDUCATION: Lethargic, almost obtunded (Merary Hernandez) Assessment and Plan Plan ASSESSMENT: - Elevated LFTs with liver cirrhosis. MELD 16. Unclear etiology for liver cirrhosis. Dx in 2013 and was told at this time this was related to fatty liver disease. She was recently told by her PCP/PAYMENT MANAGER that she may have autoimmune hepatitis based on a positive OJSH. She was seen by Dr. Escalante in 2014 and underwent liver workup at that time and this revealed JOSH positive, AMA < 20.0, ASMA negative, Celiac panel negative, Iron saturation 26.1%, AFP 5.4, Hepatitis panel negative. She continues to have JOSH positive with titer 1:160. She seems to have decompensation with recurrent ascites and worsening hepatic encephalopathy since August of this year. Abdomen/ Pelvis CT (12/05/16)----> 1. Liver cirrhosis with moderate ascites, splenomegaly and varices similar in appearance to prior CT examinations. 2. Stable right adnexal mass measuring about 7.7 cm compared with September 2015. 3. Downs catheter in bladder. No bowel obstruction. No gastric distention. This could be autoimmune hepatitis, although her was ASMA negative. ALKM-1, ALC-1, IgG unremarkable. This could also be decompensation from her known liver disease- possibly related to fatty liver dz and/or medication induced. Liver biopsy cancelled yesterday secondary to clinical condition (hypotensive on pressors). She will need transjugular liver biopsy once more stable. Needs outpatient followup, referral to tertiary for liver transplant evaluation as outpatient. Last LFT 6.0, AST 45, ALT 38, Alk Phosph 88 yesterday. ALKM-1 < 20.0. Total IgG 1140. Liver cytosol autoantibodies < 15. Pt with worsening renal function and coagulopathy. Family has made her a DNR and palliative care has been consulted. - Recurrent ascites. S/P US guided paracentesis with removal of 12,300cc of fluid. Cx negative. Albumin - AMS, Hepatic encephalopathy. Worsening overnight and today. Now very confused. On Xifaxan, Lactulose was increased by [facility]. She has NGT to get meds. She continues to have confusion/lethargic. Agitation improved with precedex - GERD. PPI. Stable. EGD during this hospitalization. - N/V since Loi. Stable. PPI. - Coagulopathy, Thrombocytopenia. Worsening. Fibrinogen 81. No active bleeding. - UTI, Cx with immature growth. - Hyponatremia, Hyperkalemia. per CCM - Acute renal failure. Renal following, worsening. Per renal- only would consider HD if goal was to get patient to tertiary for liver transplant. - Portal hypertension, hx esophageal varices. EGD with band ligation (12/07/16)-- ----> two large varices with nipple sign (high potential of bleeding) PLAN: - Nepro at 30cc/hr - [employer] Boat Maker for recommendations - Cont. Albumin - Cont. PPI - Cont. Lactulose, titrate dose as needed - Cont. Xifaxan - ALC-1 < 15, ALKM-1 < 20.0. Total IgG 1140. - Supportive care - Consider Transjugular liver biopsy once stable - Will need outpatient follow up and referral to tertiary for liver transplant evaluation as outpatient if condition improves - Pt with worsening overall status. Family has elected for DNR and palliative care has been consulted - Further recommendations to follow based on results of above - Pt seen and examined by Dr. Britton and myself and this note is written on his behalf (Merary Hernandez) Physician Comments Patient was seen and examined Agree with above Continue with current supportive care Monitor labs (Romario Britton MD) Merary Hernandez Dec 13, 2016 12:06 Romario Britton MD Dec 13, 2016 19:23
--- NOTE | 2016-12-13 14:13 | PD.CONS ---
Consult Service Palliative Care Consult Requested By Dr. Sullivan . Primary Care Physician Juliette Gomez MD . Reason for Consultation a. To assist with evaluation and management of symptoms including: Agitation, encephalopathy b. To assist medical decision maker(s) with: better understanding of current medical conditions; weighing benefits/burdens of medical treatment options; making medical treatment decisions. . HPI History of Present Illness This 56-year-old female, with a past history of type 2 diabetes, hypertension, asthma, obesity, and depression, was found to have hepatic cirrhosis in 2013. Some of the workup reportedly included a positive AMA and some other lab tests, a biopsy was not completed and it was not certain whether this was an autoimmune or perhaps a steatohepatitis. Nonetheless, the patient's hepatic failure has progressed over the past year, and she has required weekly paracenteses over the past 3 or 4 months. Overall, the patient has been declining, with more weakness, loss of functional capacity, worsening ascites, and episodes of hepatic encephalopathy. The patient had elected to transition to comfort measures/hospice services and was admitted to [facility] on . However, about a week later when she developed altered mental status and agitation, she was brought to the hospital, and eventually revoke hospice services to pursue aggressive care. In the emergency department, findings included: * Confusion * Temp 96.1, pulse 89, respirations 20, blood pressure 96/51, oxygen saturation 100% on room air * White count 8.6, hemoglobin 11.1 * Sodium 123, creatinine 0.87, albumin 3.5 * Bilirubin 6.4, INR 1.3, ammonia 72 Over the past couple days here in the hospital, her decline has accelerated, to the point that she is now PPS 10%, occasionally moaning but otherwise essentially unresponsive. Her serum ammonia level has risen in spite of aggressive lactulose dosing, and her renal function has deteriorated from creatinine 0.87 at the time of admission to creatinine 2.68 at this time. The INR has risen from 1.3 to 1.8 during this admission, and the ammonia level has risen from 70 to 197. The family heard from nephrology that the prognosis is quite poor, with a similar message from critical care. The family reports that they wants considered trying to pursue liver transplantation, but they have gotten advice recently indicating that the patient would be too ill for that. This morning, the patient's sister/HCS requested to meet with our Palliative Care team, and we were consulted to assist with symptom management and to explore with the family the benefits and burdens of the various treatment options now. . Function/Cognitive Trajectory The patient has been able to take a few steps at home, and still could drive a car short distances. However, she had been declining steadily over recent weeks , with more weakness and more difficulty ambulating. . Review of Systems ROS Limitations: Altered Mental Status (information gathered from medical record and from family) Constitutional: DENIES: Fever Endocrine: DENIES: Polyuria Eyes: DENIES: Eye inflammation Ears, nose, mouth, throat: DENIES: Epistaxis Respiratory: DENIES: Shortness of breath Cardiovascular: COMPLAINS OF: Lower Extremity Edema Gastrointestinal: COMPLAINS OF: Constipation, DENIES: Diarrhea, Vomiting Genitourinary: DENIES: Hematuria Musculoskeletal: DENIES: Back pain Integumentary: DENIES: Rash Hematologic/Lymphatics: COMPLAINS OF: Bruising Immunologic/Allergic: DENIES: Urticaria Neurologic: DENIES: Localized weakness Psychiatric: COMPLAINS OF: Depression, Agitation Past Family Social History Coded Allergies: Augmentin (Verified Allergy, Severe, 11/21/16) Tylox (Verified Allergy, Severe, 11/21/16) Lisinopril (Verified Adverse Reaction, Severe, 11/21/16) ANGIOEDEMA Tylenol (Verified Adverse Reaction, Intermediate, CIRRHOSIS, 11/21/16) Advil (Verified Adverse Reaction, Mild, 11/21/16) Past Medical History * Hepatic failure, rapidly progressive * Renal failure, hepatorenal syndrome * Hepatic cirrhosis since 2013, etiology not completely clear * History of positive JOSH * Obesity * Depression * Diabetes * Hypertension * Bipolar disorder in the past * Asthma . Past Surgical History Abdominal paracentesis multiple times Cholecystectomy EGD Colonoscopy Hysterectomy Ovarian cystectomy . Reported Medications Enulose Liq (Lactulose (Encephalopathy) Liq) 10 Gm/15 Ml Soln 30 Ml PO BID 30 Days Metformin (Metformin HCl) 500 Mg Tab 500 Mg PO BIDPC Spironolactone 100 Mg Tab 100 Mg PO BIDPC Flexeril (Cyclobenzaprine HCl) 5 Mg Tab Unknown Dose PO TID Tramadol (Tramadol HCl) 50 Mg Tab 50 Mg .ROUTE DAILY PRN Alpha Lipoic Acid 300 Mg Tab 300 Mg PO BID Propranolol (Propranolol HCl) 20 Mg Tab 20 Mg PO BID Lasix (Furosemide) 40 Mg Tab 40 Mg PO BID Cinnamon 500 Mg Cap 1,000 Mg PO BID Diphenhydramine (Diphenhydramine HCl) 25 Mg Cap 25 Mg PO TID PRN Effexor (Venlafaxine HCl) 25 Mg Tab 50 Mg PO DAILY Proair Respiclick Inh (Albuterol Sulfate) 90 Mcg/Act Aerp 2 Puff INH Q6H PRN . Current Medications Medications (Trade) Dose Ordered Sig/Pam Route Start Time Stop Time Status Last Admin (Xifaxan) 550 mg BID PO 12/05/16 09:00 12/13/16 10:05 (NS Flush) 2 ml UNSCH PRN IV FLUSH 12/05/16 07:00 (NS Flush) 2 ml BID IV FLUSH 12/05/16 09:00 12/13/16 10:05 (Zofran Inj) 4 mg Q6H PRN IV 12/05/16 07:00 12/10/16 05:24 Miscellaneous Information 1 Q361D XX 12/05/16 07:00 (Chlorhexidine 2% Cloth) Taper DAILY@04 TOP 12/06/16 04:00 12/02/17 03:59 12/09/16 04:00 (Chlorhexidine 2% Cloth) 3 pack UNSCH PRN TOP 12/05/16 07:00 (Mycostatin Cream) 1 applic Q12HR TOPICAL 12/05/16 09:00 12/13/16 10:07 (Inderal) 20 mg BID PO 12/05/16 09:00 Hold 12/09/16 20:15 (D50w (Vial) Inj) 25 ml UNSCH PRN IV PUSH 12/05/16 07:15 (Glucagon Inj) 1 mg UNSCH PRN OTHER 12/05/16 07:15 Albumin Human 12.5 gm 12.5 gm Q6HR IV 12/09/16 18:00 12/13/16 12:00 Sodium Chloride 1,000 ml @ 150 mls/hr Q6H40M IV 12/10/16 09:00 12/13/16 10:20 (Levophed Inj/NS 250 ml Inj) 250 ml @ 0 mls/hr TITRATE IV 12/10/16 11:30 12/13/16 10:37 (Brethine Inj) 1 mg UNSCH PRN SQ 12/10/16 11:30 (NS Flush) DAILY IVF 12/11/16 09:00 12/13/16 09:00 (NS Flush) UNSCH PRN IVF 12/10/16 13:45 12/11/16 09:32 (SoluCORTEF INJ) 100 mg Q8HR IV PUSH 12/10/16 14:00 12/13/16 05:13 (Lactulose Liq) 60 ml Q6H PO 12/12/16 15:00 12/13/16 10:05 Sodium Bicarbonate 1300 mg 1,300 mg Q8HR PO 12/12/16 16:00 12/13/16 05:12 (Precedex Inj) 50 ml @ 0 mls/hr TITRATE IV 12/12/16 18:00 12/13/16 10:36 (Protonix Inj) 40 mg DAILY IV PUSH 12/13/16 10:00 12/13/16 10:03 Family History 2 of the patient's paternal uncles of hepatic cirrhosis (not related to alcohol). The patient's father at age 70 with pneumonia as a complication of cancer treatment. Her mother at age 66 with end-stage renal disease and non-small cell lung cancer. Maternal grandmother and that grandmother's sisters had end-stage renal disease. . Substance Use Tobacco: Less than one half pack per day for many years Alcohol: None. Prescription med abuse: None. Illicits: None. . Psychosocial History The patient was born and raised in [place], lived in [place] a few years and then in [place] for a few years. She has been in [place] intermittently for many years, but continuously since she moved here to live with her sister in 2009. The patient has never been and she has no children. 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 . Spiritual/Cultural Factors The patient's sister reports that the patient has been quite spiritual, that she has attended a [employer] in [place], and that her lacey is very important to her. The propeller mechanic from the [facility] was coming to see her today. . Living Will: Never completed Health Care Surrogate: Completed, but not made available Durable Power of Cable Worker Helper: Never completed Health Care Surrogate(s): The patient's sister Charlene Curtis has been designated the healthcare surrogate. . Family/friends goals: The patient's brother and sister report that the patient has told them in the past that she would not want to be kept alive artificially. They wish to return the focus to comfort oriented care and to reengage hospice services. . Ethical and Legal Issues There are no ethical issues that would impact her care or decision-making at this time. The patient lacks capacity for decision-making, and she will not regain that capacity. She has previously appointed her sister Charlene Curtis as her healthcare surrogate. Physical Exam Vital Signs Date Time Temp Pulse Resp B/P Pulse Ox O2 Delivery O2 Flow Rate FiO2 12/13/16 12:00 56 12/13/16 12:00 96.0 57 14 102/56 97 12/13/16 10:00 59 12/13/16 08:00 56 12/13/16 08:00 95.9 56 13 93/50 98 12/13/16 06:00 60 12/13/16 04:00 58 12/13/16 04:00 97.0 58 14 93/54 97 12/13/16 02:00 55 12/13/16 00:00 56 12/13/16 00:00 97.6 56 13 93/53 97 12/12/16 22:00 58 12/12/16 20:00 98.7 58 14 88/53 97 12/12/16 18:00 59 12/12/16 16:00 98.8 71 20 118/59 98 12/12/16 16:00 56 12/12/16 15:00 80 12/12/16 12/13/16 19:00 07:00 Intake Total 575 ml 602 ml Output Total 500 ml 575 ml Balance 75 ml 27 ml Intake Oral 100 ml 0 ml IV Total 475 ml 552 ml Tube Feeding 50 ml Output Urine Total 500 ml 575 ml Stool Total 0 ml 0 ml # Bowel Movements 0 0 Exam CONSTITUTIONAL/GENERAL: This is an adequately nourished patient, with occasional moaning and a little agitation. TUBES/LINES/DRAINS: Nasal cannula oxygen, peripheral IV, Downs catheter SKIN: No jaundice, rashes, or lesions. Ecchymoses on upper extremities. No wounds seen anteriorly. Skin temperature appropriate. Not diaphoretic. HEAD: Atraumatic. Normocephalic. EYES: Pupils equal and round and reactive. No scleral icterus. No injection or drainage. Fundi not examined. ENT: Unable to assess hearing due to her clinical condition. Nose without bleeding or purulent drainage. Throat without visible erythema, exudates, masses , or lesions. NECK: Trachea midline. Supple, nontender. No palpable thyroid enlargement or nodularity. CARDIOVASCULAR: Regular rate and rhythm without murmurs, gallops, or rubs. No JVD. Peripheral pulses symmetric. RESPIRATORY/CHEST: Symmetric, unlabored respirations. Clear to auscultation. Breath sounds equal bilaterally. No wheezes, rales, or rhonchi. GASTROINTESTINAL: Abdomen soft, non-tender, and moderately distended with ascites. No obvious hepato-splenomegaly, or palpable masses. No guarding. Bowel sounds present. GENITOURINARY: Without palpable bladder distension. Downs catheter in place. MUSCULOSKELETAL: Extremities without clubbing, cyanosis, or edema. No joint tenderness or effusion noted. No calf tenderness. No mottling or clubbing. LYMPHATICS: No palpable cervical or supraclavicular adenopathy. NEUROLOGICAL: Quite lethargic, somewhat agitated PSYCHIATRIC: Agitated, a bit restless . Diagnostic Tests Laboratory Laboratory Tests Test 12/10/16 12/10/16 12/11/16 12/12/16 15:26 23:45 05:40 04:50 Sodium Level 126 MEQ/L 127 MEQ/L 131 MEQ/L (136-145) (136-145) (136-145) Potassium Level 5.0 MEQ/L 5.5 MEQ/L 5.3 MEQ/L (3.5-5.1) (3.5-5.1) (3.5-5.1) Chloride Level 98 MEQ/L 99 MEQ/L 104 MEQ/L (98-107) (98-107) (98-107) Carbon Dioxide Level 15.6 MEQ/L 13.7 MEQ/L 13.3 MEQ/L (21.0-32.0) (21.0-32.0) (21.0-32.0) Anion Gap 12 MEQ/L (5-15) 14 MEQ/L (5-15) 14 MEQ/L (5-15) Blood Urea Nitrogen 69 MG/DL (7-18) 74 MG/DL (7-18) 77 MG/DL (7-18) Creatinine 2.87 MG/DL 2.86 MG/DL 2.59 MG/DL (0.50-1.00) (0.50-1.00) (0.50-1.00) Estimat Glomerular Filtration 17 ML/MIN (>89) 17 ML/MIN (>89) 19 ML/MIN (>89) Rate Random Glucose 131 MG/DL 155 MG/DL 168 MG/DL (74-106) (74-106) (74-106) Serum Osmolality 289 MOSM/KG (275-295) Lactic Acid Level 2.0 mmol/L 2.8 mmol/L (0.4-2.0) (0.4-2.0) Uric Acid 8.6 MG/DL (2.6-6.0) Calcium Level 7.8 MG/DL 7.6 MG/DL 8.0 MG/DL (8.5-10.1) (8.5-10.1) (8.5-10.1) Ammonia 156 MCMOL/L 176 MCMOL/L (11-32) (11-32) Triglycerides Level 48 MG/DL (42-150) Cholesterol Level LESS THAN 50 MG/DL (120-200) LDL Cholesterol 28 MG/DL (0-99) HDL Cholesterol 12.6 MG/DL (40.0-60.0) Cholesterol/HDL Ratio 3.96 RATIO Amylase Level 44 U/L (25-115) Lipase 364 U/L (73-393) Urine Eosinophils NONE SEEN /HPF (NONE SEEN) Urine Osmolality 370 MOSM/KG (300-1300) Urine Random Creatinine 98.4 MG/DL Urine Random Sodium 6 MEQ/L White Blood Count 10.6 TH/MM3 10.2 TH/MM3 (4.0-11.0) (4.0-11.0) Red Blood Count 2.84 MIL/MM3 2.79 MIL/MM3 (4.00-5.30) (4.00-5.30) Hemoglobin 9.6 GM/DL 9.5 GM/DL (11.6-15.3) (11.6-15.3) Hematocrit 27.8 % 27.3 % (35.0-46.0) (35.0-46.0) Mean Corpuscular Volume 97.8 FL 97.9 FL (80.0-100.0) (80.0-100.0) Mean Corpuscular Hemoglobin 34.0 PG 34.1 PG (27.0-34.0) (27.0-34.0) Mean Corpuscular Hemoglobin 34.7 % 34.8 % Concent (32.0-36.0) (32.0-36.0) Red Cell Distribution Width 16.0 % 16.5 % (11.6-17.2) (11.6-17.2) Platelet Count 64 TH/MM3 60 TH/MM3 (150-450) (150-450) Mean Platelet Volume 8.8 FL 8.4 FL (7.0-11.0) (7.0-11.0) Neutrophils (%) (Auto) 91.6 % 90.9 % (16.0-70.0) (16.0-70.0) Lymphocytes (%) (Auto) 2.9 % 2.4 % (9.0-44.0) (9.0-44.0) Monocytes (%) (Auto) 5.2 % (0.0-8.0) 6.5 % (0.0-8.0) Eosinophils (%) (Auto) 0.0 % (0.0-4.0) 0.1 % (0.0-4.0) Basophils (%) (Auto) 0.3 % (0.0-2.0) 0.1 % (0.0-2.0) Neutrophils # (Auto) 9.7 TH/MM3 9.3 TH/MM3 (1.8-7.7) (1.8-7.7) Lymphocytes # (Auto) 0.3 TH/MM3 0.2 TH/MM3 (1.0-4.8) (1.0-4.8) Monocytes # (Auto) 0.6 TH/MM3 0.7 TH/MM3 (0-0.9) (0-0.9) Eosinophils # (Auto) 0.0 TH/MM3 0.0 TH/MM3 (0-0.4) (0-0.4) Basophils # (Auto) 0.0 TH/MM3 0.0 TH/MM3 (0-0.2) (0-0.2) CBC Comment AUTO DIFF AUTO DIFF Differential Comment AUTO DIFF FINAL DIFF CONFIRMED MANUAL Platelet Estimate LOW (NORMAL) LOW (NORMAL) Platelet Morphology Comment NORMAL NORMAL (NORMAL) (NORMAL) Tabatha Cells 2+ (NORMAL) 1+ (NORMAL) Prothrombin Time 19.0 SEC 20.1 SEC (9.8-11.6) (9.8-11.6) Prothromb Time International 1.7 RATIO 1.8 RATIO Ratio Activated Partial 49.0 SEC Thromboplast Time (24.3-30.1) Fibrinogen 81 mg/dL (227-377) Phosphorus Level 7.1 MG/DL 6.0 MG/DL (2.5-4.9) (2.5-4.9) Magnesium Level 2.5 MG/DL 2.6 MG/DL (1.5-2.5) (1.5-2.5) Total Creatine Kinase 28 U/L (26-192) Albumin 3.0 GM/DL 3.2 GM/DL (3.4-5.0) (3.4-5.0) Differential Total Cells 100 Counted Neutrophils % (Manual) 75 % (16-70) Band Neutrophils % 12 % (0-6) Lymphocytes % 9 % (9-44) Monocytes % 4 % (0-8) Neutrophils # (Manual) 8.9 TH/MM3 (1.8-7.7) Total Bilirubin 6.4 MG/DL (0.2-1.0) Aspartate Amino Transf 45 U/L (15-37) (AST/SGOT) Alanine Aminotransferase 38 U/L (10-53) (ALT/SGPT) Alkaline Phosphatase 88 U/L (45-117) Total Protein 5.2 GM/DL (6.4-8.2) Test 12/13/16 05:28 White Blood Count 11.6 TH/MM3 (4.0-11.0) Red Blood Count 2.88 MIL/MM3 (4.00-5.30) Hemoglobin 9.8 GM/DL (11.6-15.3) Hematocrit 28.3 % (35.0-46.0) Mean Corpuscular Volume 98.3 FL (80.0-100.0) Mean Corpuscular Hemoglobin 34.0 PG (27.0-34.0) Mean Corpuscular Hemoglobin 34.6 % Concent (32.0-36.0) Red Cell Distribution Width 16.7 % (11.6-17.2) Platelet Count 76 TH/MM3 (150-450) Mean Platelet Volume 8.3 FL (7.0-11.0) Neutrophils (%) (Auto) 91.6 % (16.0-70.0) Lymphocytes (%) (Auto) 2.2 % (9.0-44.0) Monocytes (%) (Auto) 6.1 % (0.0-8.0) Eosinophils (%) (Auto) 0.0 % (0.0-4.0) Basophils (%) (Auto) 0.1 % (0.0-2.0) Neutrophils # (Auto) 10.6 TH/MM3 (1.8-7.7) Lymphocytes # (Auto) 0.3 TH/MM3 (1.0-4.8) Monocytes # (Auto) 0.7 TH/MM3 (0-0.9) Eosinophils # (Auto) 0.0 TH/MM3 (0-0.4) Basophils # (Auto) 0.0 TH/MM3 (0-0.2) CBC Comment AUTO DIFF Differential Comment AUTO DIFF CONFIRMED Platelet Estimate LOW (NORMAL) Platelet Morphology Comment NORMAL (NORMAL) Sodium Level 135 MEQ/L (136-145) Potassium Level 5.6 MEQ/L (3.5-5.1) Chloride Level 108 MEQ/L (98-107) Carbon Dioxide Level 14.6 MEQ/L (21.0-32.0) Anion Gap 12 MEQ/L (5-15) Blood Urea Nitrogen 87 MG/DL (7-18) Creatinine 2.68 MG/DL (0.50-1.00) Estimat Glomerular Filtration 19 ML/MIN (>89) Rate Random Glucose 192 MG/DL (74-106) Calcium Level 8.6 MG/DL (8.5-10.1) Phosphorus Level 5.1 MG/DL (2.5-4.9) Magnesium Level 2.8 MG/DL (1.5-2.5) Ammonia 197 MCMOL/L (11-32) Albumin 3.4 GM/DL (3.4-5.0) Result Diagram: 12/13/1628 12/13/1628 Imaging Last Impressions Chest X-Ray 12/10/16 1341 Signed Impressions: Service Date/Time: Saturday, December 10, 2016 14:07 - CONCLUSION: 1. Left internal jugular central line has its tip in the superior vena cava. There is no pneumothorax. Sean Villagran MD Head CT 12/05/162108 Signed Impressions: Service Date/Time: Monday, December 05, 2016 08:59 - CONCLUSION: Normal examination for a patient of this age. No significant change has occurred. Bryan Mahmood MD Cyst Biopsy Asp-Paracentesis US 12/05/16 0000 Signed Impressions: Service Date/Time: Monday, December 05, 2016 11:26 - CONCLUSION: Uncomplicated ultrasound guided paracentesis. Patient received albumin. Nitin Cook MD FACR Abdomen/Pelvis CT 12/05/16 0000 Signed Impressions: Service Date/Time: Monday, December 05, 2016 09:03 - CONCLUSION: 1. Liver cirrhosis with moderate ascites, splenomegaly and varices similar in appearance to prior CT examinations. 2. Stable right adnexal mass measuring about 7.7 cm compared with September 2015. 3. Downs catheter in bladder. No bowel obstruction. No gastric distention. Bryan Mahmood MD Procedures Paracentesis . Patient/Family Conference Present at Family Conference: Patient's sister Charlene Curtis and brother Morgan Campbell . Family Conference Time (mins): 40 Family Conference Location: Bedside, Consult Room Issues Discussed: * Palliative care role, purpose, approach * Hospice care role, purpose, approach * Additional medical, psychosocial, and spiritual history * Patients general health, functional status, and cognitive changes in the months leading up to the current hospitalization * Patient/family understanding of the current medical problems * Patient/family understanding of prognosis * Patients goals of care as best understood from advance directives and/or conversations and/or values * Current medical treatment options and benefits/burdens of those options * Likely scenarios comparing ongoing aggressive care with a transition to comfort measures only * Questions answered to the best of my ability * Palliative care contact information provided . Assessment and Plan Disease Oriented Problem List: (1) hepatic failure, rapidly progressive (2) renal failure, hepatorenal syndrome (3) hepatic cirrhosis since 2013, etiology not clearly determined (4) diabetes (5) bipolar disorder in the past (6) depression (7) asthma (8) history of positive JOSH (9) obesity (10) hypertension Symptom Scale: (1) agitation 0-10 Scale: 3 (2) encephalopathy Pertinent Non-Medical Issues Psychosocial: Unmarried with no children, recently living with her sister. Spiritual: The patient's sister reports that the patient has been quite spiritual, that she has attended a [employer] in [place], and that her lacey is very important to her. The propeller mechanic from the [facility] his visiting her here at the hospital. Legal: The patient lacks capacity for decision-making, and she will not regain that capacity. She has previously appointed her sister Charlene Curtis as her healthcare surrogate. Ethical issues impacting care: None. . Important Contacts Patient's sister: Charlene Curtis, [facility] [phone] . Prognosis Her prognosis is quite poor. She is in the end stages of hepatic failure, with worsening hepatic and renal function in spite of maximum aggressive care the past few days. She is appropriate for hospice services if the goals are comfort oriented. . Code Status: No Code Plan * DO NOT RESUSCITATE * DECISION-MAKING: The patient lacks capacity for decision-making, and she will not regain that capacity. She has previously appointed her sister Charlene Curtis as her healthcare surrogate. * SYMPTOMS: The patient seems to have some agitation, and likely would benefit from some Haldol. Encephalopathy is profound, and not improving with maximum lactulose dosing. * GOALS: The patient's sister and brother have determined that they want to redirect the focus back to comfort measures only again, re-engaging hospice services at this time. They want to meet with the hospice admitting nurse late afternoon today. * Palliative Care will continue to follow the patient during this hospitalization. . Time Spent Total Floor Time (mins): 79 Face to Face Time (mins): 44 >50% Counseling/Coord of Care: Yes Thank you for the opportunity to participate in the care of Ms. Campbell. Attestation To help prompt me to consider important information that might be impacting today's encounter and assessment, information from prior notes written by myself or my colleagues may have been "brought forward" into today's note. My signature on this note, however, is an attestation that I personally performed the exam, history, and/or decision-making noted today, and, unless otherwise indicated, the interactions with patient, family, and staff as well as the review of records all occurred today. I also attest that the listed assessment and stated plan reflect my best clinical judgment today based on the combination of historical information, prior notes, and today's exam/ interactions. When time spent is documented, it refers only to time spent today by the signer, or if indicated, combined time spent today by collaborating physician/nurse practitioner. Chen Wei MD Dec 13, 2016 14:13
[2016-12-13] MEDS ORDERED: DEXMEDETOMIDINE INJ 1,000 MCG in SODIUM CHLOR 0.9% 250 ML INJ 240 ML IV SCH (14:30)
[2016-12-13] MEDS: ONDANSETRON HCL 4 MG/2 ML VIAL IV PRN (16:13)
[2016-12-13] MEDS: MORPHINE SULFATE 4 MG/ML INJ IV PUSH PRN ×2 (16:14→20:18)
[2016-12-13] MEDS ORDERED: MORPHINE SULFATE 4 MG/ML INJ IM ONE (21:30)
[2016-12-13] MEDS ORDERED: LORazepam 2 MG/ML VIAL IV PUSH ONE (21:30)
[2016-12-13] MEDS ORDERED: NOREPINEPHRINE-DEXTROSE DRIP 250 ML IV SCH (21:30)
[2016-12-13] MEDS ORDERED: MORPHINE SULFATE 4 MG/ML INJ IV ONE (21:30)
[2016-12-13] MEDS ORDERED: LORazepam 2 MG/ML VIAL IV SCH (21:45)
--- NOTE | 2016-12-22 15:30 | PQ ---
Physician Query Response Document PATIENT: ALLEN CHENG : 1960 ADMIT DATE: 12/04/2016 11:35 PM DISCH DATE: 12/13/2016 11:10 PM RESPONDING PROVIDER #: [email or web address] QUERY TEXT: Conflicting Documentation Clarification Documentation of multiple diagnoses for the same clinical presentation appears in the record. Please clarify the diagnosis/diagnoses ___ Acute kidney insufficiency (codes to unspecified kidney disorder) ___ Acute kidney injury (codes to acute renal failure) ___ Acute renal failure ___ Other diagnosis ___ Clinically unable to determine If you have any additional questions/comments and/or concerns, please do not hesitate to reach out to the CDI/Coding Hotline, Ext. [phone]. The patient's Clinical Indicators include: Dr. Armando's consult 12/09/16: (1) Acute kidney insufficiency. Dr. Armando's progress note 12/10/16: Assessment/Plan : Problem List: (1) Acute kidney insufficiency Plan: Development of azotemia is concerning for development of hepatorenal syndrome however need to exclude intravascular volume depletion prior to making diagnosis. Spot urine Na pending. SCr unfortu nately did not improve with IV hydration making hepatorenal syndrome a likely diagnosis which carries a poor prognosis. Dr. Armando's progress note 12/11/16: Assessment/Plan : Problem List: (1) Acute kidney insufficiency Plan: Patient's creatinine level about the same level as yesterday. Urine output still poor with ol iguria. Urine sodium is below 10 consistent with hepatorenal syndrome which I suspect is etiology of the rohit ent's renal failure. [facility] Progress notes starting 12/10/16: Acute kidney injury Progress note 12/09/16 Dr. Paul: Acute Renal Failure Cr markedly increased from yesterday at 2.37 Concern for hepatorenal syndrome Nephrology consulted, appreciate their assistance [facility] Progress note 12/13/16: - Acute renal failure. Renal following, worsening. Per renal- only would consider HD if goal was to get patient to tertiary for liver transplant. [facility] Progress note 12/13/16: Acute kidney injury - hepato-renal sy ?? - albumin infusion 12.5 g IV every 6 hours along with norepinephrine to maintain MAP around 70 - Follow-up creatinine slightly improved today - Very poor prognosis Patient also with diagnosis of diabetic nephropathy. Query created by: Cecilia Loomis on 12/17/2016 9:37 AM RESPONSE TEXT: - Acute kidney injury - baseline less than 1.0. - Likely hepatorenal syndrome type 1. Electronically signed by: Delta Paige DO 12/22/2016 3:26 PM
--- NOTE | 2016-12-29 00:37 | HHI.DS ---
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 She has no h/o EtOH or IVDU. She has been followed by Dr. Gomez as outpatient and previously seen by Dr. Escalante. There has been discussion of referral to transplant center but patient has not always had good followup due to financial constraints. She has recently been approved for SSI. She presents to [facility] due to altered mental status. Her sisters are at bedside and state that since about august or september of 2016 that she sleeps 70-80% of the day. However, she is typically coherent when she is awake. She slept all day on 12/04/16 and around 4 pm she got up and was "off balance" and nearly fell in the shower. She was also disoriented and could state that she was in [place] but could not answer any other questions. She was also agitated and cursing, which is not in her nature. She has no reported head trauma. She has been compliant with lactulose 30 bid. Ammonia level is 72. She has tense ascites and has been requiring paracentesis since september of 2015, now requiring weekly paracentesis for the last several months. Family states typically remove ~12 L. Last paracentesis was on 11/30 and 14 L were removed. She is on spironolactone 100 bid and lasix 40 bid. She reportedly has had no fever. She has had chills for "Several months". She reports no abdominal pain outside of the typical discomfort when she has ascites. She vomited on 11/25 and 11/26 NBNB. Sodium 122. potassium 5.5. She received 2 L NS bolus in the ED and treatment for hyperkalemia with kayexalate/calcium/dextrose/insulin. She received lactulose [address] brain and abdomen were ordered but she was uncooperative with the exam. PE at Discharge GENERAL: comatose, critically ill appearing SKIN: Warm and dry. HEAD: Normocephalic. EYES: scleral icterus. No injection or drainage. NECK: Supple, trachea midline. No JVD or lymphadenopathy. CARDIOVASCULAR: Regular rate and rhythm without murmurs, gallops, or rubs. RESPIRATORY: Breath sounds equal bilaterally. No accessory muscle use. GASTROINTESTINAL: Abdomen soft, non-tender, nondistended. MUSCULOSKELETAL: No cyanosis, or edema. BACK: Nontender without obvious deformity. No CVA tenderness. Hospital Course Discussed with sister worsening of clinical course. Patient would not want to prolong her life without good quality using artificial measures such as ventilator or other life support. We will consult palliative care medicine and place DNR/DNI order on a chart per her wishes. Discharge Disposition: Hospice/Med Facility Discharge Instructions DIET: Follow Instructions for: Full Liquid Diet Activities you can perform: Regular-No Restrictions Additional Information Discharge to hospice for comfort care only per patient's and family wishes Neeraj Sullivan MD Dec 29, 2016 00:37
== END 2016-12-13 23:10 | disposition hospice, inpatient (51) | DRG 441 ==
LOC: NEPA 20:07 → NEDA 23:35 → NEDH 12-05 03:35 → HIMN 12-05 13:40 → N04A 12-06 18:43 → N03A 12-10 12:28
PROVIDERS: ADMIT Internal Medicine Critical Care Medicine; ATTEND Internal Medicine Critical Care Medicine
PROC: 0W9G3ZX Drainage of Peritoneal Cavity, Percutaneous Approach, Diagnostic (ICD-10-PCS; 2016-12-05)
PROC: 06L34CZ Occlusion of Esophageal Vein with Extraluminal Device, Percutaneous Endoscopic Approach (ICD-10-PCS; principal; 2016-12-07 13:00)
DX: K72.90 Hepatic failure, unspecified without coma (principal); K76.7 Hepatorenal syndrome; R57.9 Shock, unspecified; N17.9 Acute kidney failure, unspecified; E87.2 Acidosis; K76.6 Portal hypertension; R18.8 Other ascites; E11.42 Type 2 diabetes mellitus with diabetic polyneuropathy; I85.00 Esophageal varices without bleeding; N39.0 Urinary tract infection, site not specified; E87.1 Hypo-osmolality and hyponatremia; Z68.41 Body mass index [BMI] 40.0-44.9, adult; D69.59 Other secondary thrombocytopenia; Z79.84 Long term (current) use of oral hypoglycemic drugs; R16.1 Splenomegaly, not elsewhere classified; E87.5 Hyperkalemia; F17.210 Nicotine dependence, cigarettes, uncomplicated; K74.60 Unspecified cirrhosis of liver; J45.909 Unspecified asthma, uncomplicated; E66.9 Obesity, unspecified; I10 Essential (primary) hypertension; Z66 Do not resuscitate; K21.9 Gastro-esophageal reflux disease without esophagitis; Z51.5 Encounter for palliative care; B37.2 Candidiasis of skin and nail; D64.9 Anemia, unspecified
CPT/HCPCS: 36556; 49083; 70450; 71010; 74177; 80048; 80053; 80061; 80069; 80074; 80320; 80329; 81001; 82042; 82140; 82150; 82533; 82550; 82570; 82784; 82787; 82945; 82948; 83605; 83615; 83690; 83735; 83930; 83935; 84100; 84132; 84157; 84300; 84443; 84484; 84550; 85007; 85025; 85027; 85384; 85610; 85730; 86376; 87040; 87070; 87086; 87205; 87641; 89051; 93005; 94664; 96374; 96375; C9113; C9399; G0480; J0610; J0744; J1720; J1815; J2060; J2250; J2270; J2405; J3010; J7030; J7050; J7611; P9047; Q9967